=== PATIENT | female | born 1935 | race Caucasian/White ===

== ENCOUNTER 2017-01-25 21:19 | Emergency (ER) | payer MEDICARE ==
--- NOTE | 2017-01-25 22:07 | ED ---
General Adult HPI - General Chief complaint: Extremity Injury, Lower Stated complaint: Leg Pain Time Seen by Provider: 01/25/17 21:44 Source: patient, EMS, RN notes reviewed Mode of arrival: EMS Limitations: no limitations - History of Present Illness Initial comments: 81-year-old female presents to the emergency department with a chief complaint of left foot and ankle pain. Patient states that she was watering her garden the way back in her legs gave out and she twisted her left foot and ankle. Since she's had some pain and swelling noted. Patient states she normally uses a walker which she was not using during this incident. There is no lightheadedness or dizziness she did not fall she simply twisted her foot. Patient denies any other injuries at this time. Patient denies any other complaints. Patient denies any recent fever, chills, shortness of breath, chest pain, back pain, abdominal pain, nausea vomiting, numbness or tingling, dysuria or hematuria, constipation or diarrhea, headaches or visual changes, or any other current symptoms. - Related Data Home Medications Medication Instructions Recorded Confirmed Albuterol Inhaler [Ventolin 2 puff INHALATION Q4HR PRN 02/18/14 02/18/14 Inhaler] Amiodarone [Cordarone] 50 mg PO DAILY 02/18/14 02/21/14 Aspirin 81 mg PO DAILY 02/18/14 02/21/14 Cholecalciferol [Vitamin D3] 400 unit PO DAILY 02/18/14 02/21/14 Metoprolol Tartrate [Lopressor] 25 mg PO BID 02/18/14 02/21/14 Montelukast [Singulair] 10 mg PO DAILY 02/18/14 02/21/14 Venlafaxine HCl [Effexor] 75 mg PO DAILY 02/18/14 02/21/14 amLODIPine [Norvasc] 5 mg PO DAILY 02/18/14 02/21/14 traMADol HCl [Ultram] 50 mg PO Q6H PRN 02/18/14 02/21/14 Albuterol Inhaler [Ventolin 2 puff INHALATION Q4HR PRN 02/21/14 02/21/14 Inhaler] Allergies Allergy/AdvReac Type Severity Reaction Status Date / Time No Known Allergies Allergy Verified 02/18/14 14:34 Review of Systems ROS Statement: Those systems with pertinent positive or pertinent negative responses have been documented in the HPI. ROS Other: All systems not noted in ROS Statement are negative. Past Medical History Past Medical History: Asthma, Hypertension, Osteoarthritis (OA), Syncope Additional Past Medical History / Comment(s): fell 3 weeks after passing out, hit head, neede several stitches, see DR [facility], sepsis 2012 & hospitalized for over a month History of Any Multi-Drug Resistant Organisms: None Reported Past Surgical History: Bowel Resection, Hysterectomy, Joint Replacement, Tonsillectomy Additional Past Surgical History / Comment(s): cardioversion, both hips replaced , bowel resection due to perforation & then septic Past Anesthesia/Blood Transfusion Reactions: No Reported Reaction Past Psychological History: No Psychological Hx Reported Smoking Status: Former smoker Past Alcohol Use History: Occasional Past Drug Use History: None Reported General Exam - General Exam Comments Initial Comments: General: The patient is awake and alert, in no distress, and does not appear acutely ill. Neck: The neck is supple, there is no tenderness. Cardiovascular: There is a regular rate and rhythm. No murmur, rub or gallop is appreciated. Respiratory: Lungs are clear to auscultation, respirations are non-labored, breath sounds are equal. No wheezes, stridor, rales, or rhonchi. Musculoskeletal: Sensation intact. 2+ pulses throughout the left lower externa. Frontal motion of left knee and left ankle and left foot. Patient does have some swelling over the lateral malleolus as well as to the top of the left foot. 5 out of 5 muscle strength testing. No ecchymosis noted. Neurological: CN II-XII intact, There are no obvious motor or sensory deficits. Coordination appears grossly intact. Speech is normal. Skin: Skin is warm and dry and no rashes or lesions are noted. Psychiatric: Normal mood and affect. Limitations: no limitations Course Vital Signs 01/25/17 01/25/17 21:20 22:14 Temperature 97.5 F L Pulse Rate 52 L 72 Respiratory 20 17 Rate Blood Pressure 150/70 136/61 O2 Sat by Pulse 99 97 Oximetry Procedures - Orthopedic Splinting/Casting Injury #1 Side: left Lower Extremity Injury Location: ankle Lower Extremity Immobilizer: posterior splint (short leg) Medical Decision Making - Medical Decision Making 81-year-old female presents emergency Department chief complaint of left foot and ankle pain after a fall. At this time patient's x-rays reviewed that does show a fracture. At this time we did take patient is splint. We discussed care follow-up return parameters all questions. We discussed nonweightbearing on the ankle. We discussed follow-up and return parameters. We discussed all the patient's questions. She does have a walker at home. She will be discharged. - Radiology Data Radiology results: report reviewed, image reviewed Disposition Clinical Impression: Fracture of lateral malleolus of left ankle Disposition: HOME SELF-CARE Condition: Stable Instructions: Ankle Fracture (ED) Additional Instructions: Please use medication as discussed. Please follow up with family doctor if symptoms have not improved over the next two days. Please return to the emergency room if your symptoms increase or worsen or for any other concerns. Referrals: Myranda Jaquez MD [Primary Care Provider] - 1-2 days Jerry Diego DO [Doctor of Osteopathic Medicine] - 1-2 days Time of Disposition: 22:52
--- NOTE | 2017-01-25 22:18 | XR ---
EXAM: XR Left Foot Complete, 3 or More Views CLINICAL HISTORY: Reason: Pain TECHNIQUE: Frontal, lateral and oblique views of the left foot. COMPARISON: No relevant prior studies available. FINDINGS: Bones/joints: Small plantar calcaneal spur noted. No acute fracture. No dislocation. Soft tissues: Diffuse soft tissue swelling about the forefoot. No radiopaque foreign body. IMPRESSION: Diffuse soft tissue swelling about the forefoot. No fracture.
--- NOTE | 2017-01-25 22:29 | XR ---
EXAM: XR Left Ankle Complete, 3 or More Views CLINICAL HISTORY: Reason: Pain TECHNIQUE: Frontal, lateral and oblique views of the left ankle. COMPARISON: No relevant prior studies available. FINDINGS: Bones/joints: Nondisplaced oblique fracture of the lateral malleolus. No dislocation. Soft tissues: Lateral ankle soft tissue swelling noted. IMPRESSION: Nondisplaced oblique fracture of the lateral malleolus. Carballo type B.
[2017-01-26 00:26] VITALS: BP 165/77; PULSE 57; RESP 18; TEMP 98.8
== END 2017-01-26 00:35 | disposition home or self-care (01) ==
LOC: EC 21:19
DX: S82.65XA Nondisplaced fracture of lateral malleolus of left fibula, initial encounter for closed fracture (principal); J45.909 Unspecified asthma, uncomplicated; I10 Essential (primary) hypertension; M19.90 Unspecified osteoarthritis, unspecified site; Z96.643 Presence of artificial hip joint, bilateral; Z87.891 Personal history of nicotine dependence; Z79.82 Long term (current) use of aspirin; Z79.899 Other long term (current) drug therapy; X50.1XXA Overexertion from prolonged static or awkward postures, initial encounter; Y93.H2 Activity, gardening and landscaping; Y92.096 Garden or yard of other non-institutional residence as the place of occurrence of the external cause
CPT/HCPCS: 29515; 99283

== ENCOUNTER → 2017-02-06 | Outpatient (CLI) | payer MEDICARE ==
--- NOTE | 2017-02-06 14:07 | CT ---
EXAMINATION TYPE: CT foot LT wo con DATE OF EXAM: 02/06/2017 COMPARISON: Plain radiographs dated 01/25/2017. HISTORY: Left sided ankle and foot pain with bruising CT DLP: 244.7 mGycm Automated exposure control for dose reduction was used. TECHNIQUE: Helical acquisition through the left foot was obtained without intravenous contrast. The d kell was reformatted in axial, coronal and sagittal projections. 3-D volume rendered imaging was perfo rmed at the CT scanner. FINDINGS: There is a minimally displaced and mildly foreshortened fracture of the distal diametaphysi s of the left fibula. There is also a minimally displaced fracture of the base of the proximal first metatarsal. There are undisplaced fractures through the base of the second and third metatarsals. The re is a minimally displaced fracture through the base of the fourth metatarsal. No other definite fra ctures are seen. IMPRESSION: 1. MINIMALLY DISPLACED FRACTURE OF THE DISTAL LEFT FIBULA. 2. MULTIPLE METATARSAL FRACTURES. I DO NOT SEE EVIDENCE OF A LISFRANC FRACTURE.
== END ==
LOC: RADCTMAIN 13:14
PROVIDERS: ATTEND Orthopaedic Surgery
DX: M25.572 Pain in left ankle and joints of left foot (principal); M79.672 Pain in left foot; S82.832A Other fracture of upper and lower end of left fibula, initial encounter for closed fracture; S92.322A Displaced fracture of second metatarsal bone, left foot, initial encounter for closed fracture; S92.332A Displaced fracture of third metatarsal bone, left foot, initial encounter for closed fracture; S92.352A Displaced fracture of fifth metatarsal bone, left foot, initial encounter for closed fracture

== ENCOUNTER 2021-03-11 14:25 | Inpatient (IN) | payer MEDICARE ==
[2021-03-11] MEDS ORDERED: IPRATROPIUM 0.5 MG/2.5 ML NEBU INHALATION STA (14:37)
[2021-03-11] MEDS ORDERED: DEXAMETHASONE SOD PHOSPHATE 10 MG/ML 1 ML VIAL IV STA (14:37)
[2021-03-11] MEDS ORDERED: ALBUTEROL NEBULIZED 2.5 MG/3 ML INHALATION STA (14:37)
[2021-03-11] MEDS ORDERED: HEPARIN SODIUM 1,000 UN/ML (10ML VL) IV ONE (14:53)
[2021-03-11] MEDS ORDERED: HEPARIN SODIUM 1,000 UN/ML (10ML VL) IV PRN (14:53)
--- NOTE | 2021-03-11 14:53 | ED ---
General Adult HPI - General Chief complaint: Shortness of Breath Stated complaint: KIMBERLY Time Seen by Provider: 03/11/21 14:27 Source: patient, EMS Mode of arrival: EMS Limitations: no limitations - History of Present Illness Initial comments: Dictation was produced using [employer] dictation software. please excuse any grammatical, word or spelling errors. Chief Complaint: 85-year-old female with past medical history of asthma presents emergency department for shortness of breath 4 days. History of Present Illness: 85-year-old female she is brought in by EMS for shortness of breath. Patient reports that she's been short of breath for 4 days. Denies any chest pain or fevers. Patient reports having history of asthma. EMS placed patient on CPAP. They did notice multiple runs of atrial flutter versus atrial fibrillation. Patient denies having a configuration analyst. She denies fever. EMS reports that patient was piece 6% on room air at home. ROS limited secondary to patient's clinical status. She is having difficulty speaking due to dyspnea. PHYSICAL EXAM: General Impression: Alert and oriented x3, dyspneic HEENT: Normocephalic atraumatic, extra-ocular movements intact, pupils equal and reactive to light bilaterally, mucous membranes moist. Cardiovascular: Heart regular rate and rhythm Chest: 3 word sentences, diffuse lung wheezing Abdomen: abdomen soft, non-tender, non-distended, no organomegaly Musculoskeletal: Pulses present and equal in all extremities, no peripheral edema Motor: no focal deficits noted Neurological: CN II-XII grossly intact, no focal motor or sensory deficits noted Skin: Intact with no visualized rashes Psych: Normal affect and mood ED course:-year-old. Presents emergency department for chief complaint of dyspnea. Patient has wheezing on auscultation of the lungs per she is also has atrial flutter seen on monitor. Signs upon arrival shows heart rate of 110, respiratory 26, 96% on BiPAP with FiO2 of 50. EKG shows atrial flutter with variable block. Patient's medications and the electronic medical record reviewed. There is a prescription for amiodarone from 2013. Return evaluation obtained. Mild leukocytosis of 10.7. Rest of CBC within acceptable limits. Coag panel is unremarkable. Metabolic panel shows elevated BUN to creatinine ratio. Lactic acidosis 2.2. Troponin negative. Brain natruretic peptide unremarkable. Patient is RSV positive. Chest x-ray shows atelectasis. Patient reevaluated at bedside at 4:30 PM found to be stable medical condition. She is tolerating BiPAP. Her vitals are improved. Patient treated with Decadron, azithromycin. She started on heparin for atrial flutter. Patient seems to be rate controlled at this time. Patient given oral metoprolol. EKG interpretation: Ventricular rate 108, atrial flutter, QRS 78, QTC 418. No SD prolongation, no QTC prolongation, no ST or T-wave changes noted. No old EKG for comparison. - Related Data Home Medications Medication Instructions Recorded Confirmed Amiodarone [Cordarone] 50 mg PO DAILY 02/18/14 03/11/21 Montelukast [Singulair] 10 mg PO HS 02/18/14 03/11/21 Venlafaxine HCl [Effexor] 75 mg PO DAILY 02/18/14 03/11/21 amLODIPine [Norvasc] 5 mg PO DAILY 02/18/14 03/11/21 Albuterol Sulfate [Albuterol 2 puff PO RT-Q6H PRN 03/11/21 03/11/21 Sulfate Hfa] HYDROcodone/APAP 5-325MG [[place] 1 tab PO TID PRN 03/11/21 03/11/21 5-325] Metoprolol Tartrate [Lopressor] 100 mg PO DAILY 03/11/21 03/11/21 methylPREDNISolone Dose Pack See Taper PO DIRECTED 03/11/21 03/11/21 [Medrol Dose Pack] Allergies Allergy/AdvReac Type Severity Reaction Status Date / Time No Known Allergies Allergy Verified 03/11/21 16:20 Review of Systems ROS Statement: Those systems with pertinent positive or pertinent negative responses have been documented in the HPI. ROS Other: All systems not noted in ROS Statement are negative. Past Medical History Past Medical History: Asthma, Hypertension, Osteoarthritis (OA), Syncope Additional Past Medical History / Comment(s): fell 3 weeks after passing out, hit head, neede several stitches, see DR Terrazas [facility], sepsis 2011 & hospitalized for over a month History of Any Multi-Drug Resistant Organisms: None Reported Past Surgical History: Bowel Resection, Hysterectomy, Joint Replacement, Tonsillectomy Additional Past Surgical History / Comment(s): cardioversion, both hips replaced, bowel resection due to perforation & then septic Past Anesthesia/Blood Transfusion Reactions: No Reported Reaction Past Psychological History: No Psychological Hx Reported Smoking Status: Former smoker Past Alcohol Use History: Occasional Past Drug Use History: None Reported General Exam Limitations: no limitations Course Vital Signs 03/11/21 03/11/21 03/11/21 14:27 14:55 15:00 Temperature 98 F Pulse Rate 110 H 122 H 114 H Respiratory 26 H 24 26 H Rate Blood Pressure 142/99 142/88 O2 Sat by Pulse 96 98 Oximetry 03/11/21 15:28 Temperature Pulse Rate 127 H Respiratory 23 Rate Blood Pressure O2 Sat by Pulse Oximetry Medical Decision Making - Lab Data Result diagrams: 03/11/21 14:47 03/11/21 14:47 Lab Results 03/11/21 03/11/21 03/11/21 Range/Units 14:47 14:47 14:47 WBC 10.7 H (3.8-10.6) k/uL RBC 4.04 (3.80-5.40) m/uL Hgb 14.1 (11.4-16.0) gm/dL Hct 42.0 (34.0-46.0) % MCV 104.0 H (80.0-100.0) fL MCH 35.0 (25.0-35.0) pg MCHC 33.6 (31.0-37.0) g/dL RDW 13.9 (11.5-15.5) % Plt Count 378 (150-450) k/uL MPV 7.9 Neutrophils % 84 % Lymphocytes % 7 % Monocytes % 6 % Eosinophils % 0 % Basophils % 0 % Neutrophils # 9.0 H (1.3-7.7) k/uL Lymphocytes # 0.8 L (1.0-4.8) k/uL Monocytes # 0.6 (0-1.0) k/uL Eosinophils # 0.0 (0-0.7) k/uL Basophils # 0.0 (0-0.2) k/uL Macrocytosis Slight PT 10.5 (9.0-12.0) sec INR 1.0 (<1.2) APTT 21.2 L (22.0-30.0) sec Sodium 141 (137-145) mmol/L Potassium 4.1 (3.5-5.1) mmol/L Chloride 103 (98-107) mmol/L Carbon Dioxide 29 (22-30) mmol/L Anion Gap 9 mmol/L BUN 32 H (7-17) mg/dL Creatinine 1.02 (0.52-1.04) mg/dL Est GFR (CKD-EPI)AfAm 57 (>60 ml/min/1.73 sqM) Est GFR (CKD-EPI)NonAf 50 (>60 ml/min/1.73 sqM) Glucose 114 H (74-99) mg/dL Plasma Lactic Acid Eddie (0.7-2.0) mmol/L Calcium 9.8 (8.4-10.2) mg/dL Magnesium 1.8 (1.6-2.3) mg/dL Total Bilirubin 0.8 (0.2-1.3) mg/dL AST 42 H (14-36) U/L ALT 18 (4-34) U/L Alkaline Phosphatase 80 (38-126) U/L Troponin I (0.000-0.034) ng/mL NT-Pro-B Natriuret Pep pg/mL Total Protein 7.4 (6.3-8.2) g/dL Albumin 4.0 (3.5-5.0) g/dL Influenza Type A (PCR) (Not Detectd) Influenza Type B (PCR) (Not Detectd) RSV (PCR) (Not Detectd) SARS-CoV-2 (PCR) (Not Detectd) 03/11/21 03/11/21 03/11/21 Range/Units 14:47 14:47 15:07 WBC (3.8-10.6) k/uL RBC (3.80-5.40) m/uL Hgb (11.4-16.0) gm/dL Hct (34.0-46.0) % MCV (80.0-100.0) fL MCH (25.0-35.0) pg MCHC (31.0-37.0) g/dL RDW (11.5-15.5) % Plt Count (150-450) k/uL MPV Neutrophils % % Lymphocytes % % Monocytes % % Eosinophils % % Basophils % % Neutrophils # (1.3-7.7) k/uL Lymphocytes # (1.0-4.8) k/uL Monocytes # (0-1.0) k/uL Eosinophils # (0-0.7) k/uL Basophils # (0-0.2) k/uL Macrocytosis PT (9.0-12.0) sec INR (<1.2) APTT (22.0-30.0) sec Sodium (137-145) mmol/L Potassium (3.5-5.1) mmol/L Chloride (98-107) mmol/L Carbon Dioxide (22-30) mmol/L Anion Gap mmol/L BUN (7-17) mg/dL Creatinine (0.52-1.04) mg/dL Est GFR (CKD-EPI)AfAm (>60 ml/min/1.73 sqM) Est GFR (CKD-EPI)NonAf (>60 ml/min/1.73 sqM) Glucose (74-99) mg/dL Plasma Lactic Acid Eddie 2.2 H* (0.7-2.0) mmol/L Calcium (8.4-10.2) mg/dL Magnesium (1.6-2.3) mg/dL Total Bilirubin (0.2-1.3) mg/dL AST (14-36) U/L ALT (4-34) U/L Alkaline Phosphatase (38-126) U/L Troponin I <0.012 (0.000-0.034) ng/mL NT-Pro-B Natriuret Pep 1490 pg/mL Total Protein (6.3-8.2) g/dL Albumin (3.5-5.0) g/dL Influenza Type A (PCR) (Not Detectd) Influenza Type B (PCR) (Not Detectd) RSV (PCR) (Not Detectd) SARS-CoV-2 (PCR) (Not Detectd) 03/11/21 Range/Units 15:10 WBC (3.8-10.6) k/uL RBC (3.80-5.40) m/uL Hgb (11.4-16.0) gm/dL Hct (34.0-46.0) % MCV (80.0-100.0) fL MCH (25.0-35.0) pg MCHC (31.0-37.0) g/dL RDW (11.5-15.5) % Plt Count (150-450) k/uL MPV Neutrophils % % Lymphocytes % % Monocytes % % Eosinophils % % Basophils % % Neutrophils # (1.3-7.7) k/uL Lymphocytes # (1.0-4.8) k/uL Monocytes # (0-1.0) k/uL Eosinophils # (0-0.7) k/uL Basophils # (0-0.2) k/uL Macrocytosis PT (9.0-12.0) sec INR (<1.2) APTT (22.0-30.0) sec Sodium (137-145) mmol/L Potassium (3.5-5.1) mmol/L Chloride (98-107) mmol/L Carbon Dioxide (22-30) mmol/L Anion Gap mmol/L BUN (7-17) mg/dL Creatinine (0.52-1.04) mg/dL Est GFR (CKD-EPI)AfAm (>60 ml/min/1.73 sqM) Est GFR (CKD-EPI)NonAf (>60 ml/min/1.73 sqM) Glucose (74-99) mg/dL Plasma Lactic Acid Eddie (0.7-2.0) mmol/L Calcium (8.4-10.2) mg/dL Magnesium (1.6-2.3) mg/dL Total Bilirubin (0.2-1.3) mg/dL AST (14-36) U/L ALT (4-34) U/L Alkaline Phosphatase (38-126) U/L Troponin I (0.000-0.034) ng/mL NT-Pro-B Natriuret Pep pg/mL Total Protein (6.3-8.2) g/dL Albumin (3.5-5.0) g/dL Influenza Type A (PCR) Not Detected (Not Detectd) Influenza Type B (PCR) Not Detected (Not Detectd) RSV (PCR) Detected A (Not Detectd) SARS-CoV-2 (PCR) Not Detected (Not Detectd) Critical Care Time Critical Care Time: Yes Total Critical Care Time: 33 Disposition Clinical Impression: Asthma exacerbation, RSV infection, Atrial flutter Disposition: ADMITTED IP TO THIS [facility] Condition: Fair Referrals: Myranda Jaquez MD [Primary Care Provider] - 1-2 days
[2021-03-11 15:10] LABS: Basophils % (A) 0 %; Eosinophils % (A) 0 %; HGB 14.1 gm/dL (11.4-16.0); Lymphocytes # (A) 0.8 k/uL (1.0-4.8); Lymphocytes % (A) 7 %; MCHC 33.6 g/dL (31.0-37.0); Macrocytosis Slight; Mean Platelet Volume 7.9; Monocytes # (A) 0.6 k/uL (0-1.0); Monocytes % (A) 6 %; Neutrophils % (A) 84 %; Platelet Count 378 k/uL (150-450); RBC 4.04 m/uL (3.80-5.40); RDW 13.9 % (11.5-15.5); WBC 10.7 k/uL (3.8-10.6)
[2021-03-11 15:25] LABS: Calcium 9.8 mg/dL (8.4-10.2); Magnesium 1.8 mg/dL (1.6-2.3); Potassium 4.1 mmol/L (3.5-5.1); Total Bilirubin 0.8 mg/dL (0.2-1.3); Total Protein 7.4 g/dL (6.3-8.2)
[2021-03-11] MEDS: HEPARIN SOD,PORK IN 0.45% NACL 25,000 UNIT in 0.45% NACL 1 250ML.BAG IV SCH (15:28)
--- NOTE | 2021-03-11 15:31 | XR ---
EXAMINATION TYPE: XR chest 1V portable DATE OF EXAM: 03/11/2021 COMPARISON: 03/26/2012 HISTORY: Difficulty breathing TECHNIQUE: Single view FINDINGS: There is no heart failure nor confluent pneumonic infiltrate. Costophrenic angles are clear . There is some linear density in the lingula left upper lobe. Heart size is normal. IMPRESSION: Minimal lingular subsegmental atelectasis. There is clearing of the pleural fluid and pul monary congestion compared to old exam.
[2021-03-11 15:42] LABS: Prothrombin Time 10.5 sec (9.0-12.0)
[2021-03-11 16:18] LABS: Partial Thromboplastin Time 21.2 sec (22.0-30.0)
[2021-03-11] MEDS ORDERED: METOPROLOL TARTRATE 50 MG TAB PO STA (16:33)
[2021-03-11] MEDS: AZITHROMYCIN 500 MG TAB PO SCH (17:02)
[2021-03-11] MEDS ORDERED: LORazepam 2 MG/ML INJ IV STA (17:14)
--- NOTE | 2021-03-11 18:39 | P.HPIM ---
History of Present Illness H&P Date: 03/11/21 Chief Complaint: Shortness of breath 85-year-old female patient, with history of asthma, hypertension, osteoarthritis and syncope, presents to ED with complaint of shortness of breath which has been gradually worsening for the past 4 days; patient denies any chest pain or fe vers; while in ED patient had several rounds of atrial flutter/fibrillation Lab work in ED reveals WBC of 10.7, hemoglobin of 14.1, sodium 141, potassium 4.1, BUN of 32 with creatinine of 1.02, lactic acid level of 2.2 and magnesium of 1.8 Patient was placed on BiPAP which improved her respiratory status; she received Decadron and azithromycin and has been placed on IV heparin and is being admitte d for cardiology to evaluate Review of Systems REVIEW OF SYSTEMS: CONSTITUTIONAL: No fever, no malaise, no fatigue. HEENT: No recent visual problems or hearing problems. Denied any sore throat. CARDIOVASCULAR: No chest pain, orthopnea, PND, no palpitations, no syncope. PULMONARY: No shortness of breath, no cough, no hemoptysis. GASTROINTESTINAL: No diarrhea, no nausea, no vomiting, no abdominal pain. NEUROLOGICAL: No headaches, no weakness, no numbness. HEMATOLOGICAL: Denies any bleeding or petechiae. GENITOURINARY: Denies any burning micturition, frequency, or urgency. MUSCULOSKELETAL/RHEUMATOLOGICAL: Denies any joint pain, swelling, or any muscle pain. ENDOCRINE: Denies any polyuria or polydipsia. The rest of the 14-point review of systems is negative. Past Medical History Past Medical History: Asthma, Hypertension, Osteoarthritis (OA), Syncope Additional Past Medical History / Comment(s): fell 3 weeks after passing out, hit head, neede several stitches, see DR Terrazas [facility], sepsis 2011 & hospitalized for over a month History of Any Multi-Drug Resistant Organisms: None Reported Past Surgical History: Bowel Resection, Hysterectomy, Joint Replacement, Tonsillectomy Additional Past Surgical History / Comment(s): cardioversion, both hips replaced, bowel resection due to perforation & then septic Past Anesthesia/Blood Transfusion Reactions: No Reported Reaction Past Psychological History: No Psychological Hx Reported Smoking Status: Former smoker Past Alcohol Use History: Occasional Past Drug Use History: None Reported Medications and Allergies Home Medications Medication Instructions Recorded Confirmed Type Amiodarone [Cordarone] 50 mg PO DAILY 02/18/14 03/11/21 History Montelukast [Singulair] 10 mg PO HS 02/18/14 03/11/21 History Venlafaxine HCl [Effexor] 75 mg PO DAILY 02/18/14 03/11/21 History amLODIPine [Norvasc] 5 mg PO DAILY 02/18/14 03/11/21 History Albuterol Sulfate [Albuterol 2 puff PO RT-Q6H PRN 03/11/21 03/11/21 History Sulfate Hfa] HYDROcodone/APAP 5-325MG [[place] 1 tab PO TID PRN 03/11/21 03/11/21 History 5-325] Metoprolol Tartrate [Lopressor] 100 mg PO DAILY 03/11/21 03/11/21 History methylPREDNISolone Dose Pack See Taper PO DIRECTED 03/11/21 03/11/21 History [Medrol Dose Pack] Allergies Allergy/AdvReac Type Severity Reaction Status Date / Time No Known Allergies Allergy Verified 03/11/21 16:20 Physical Exam Vitals: Vital Signs Temp Pulse Resp BP Pulse Ox 03/11/21 17:00 98.9 F 124 H 26 H 138/72 97 03/11/21 16:00 112 H 25 H 141/98 97 03/11/21 15:28 127 H 23 03/11/21 15:00 114 H 26 H 142/88 98 03/11/21 14:55 122 H 24 03/11/21 14:27 98 F 110 H 26 H 142/99 96 Intake and Output 03/11/21 03/11/21 03/11/21 06:59 14:59 22:59 Other: Weight 77.111 kg - Constitutional General appearance: Present: average body habitus, cooperative, no acute distr ess - EENT Eyes: Present: anicteric sclerae, EOMI, PERRLA, normal appearance ENT: Present: hearing grossly normal, normal oropharynx Ears: bilateral: normal - Neck Neck: Present: normal ROM. Absent: lymphadenopathy, rigidity, thyromegaly Carotids: negative: bruit present Thyroid: bilateral: normal size, negative: enlarged, nodule - Respiratory Respiratory: bilateral: CTA, negative: rales, rhonchi, wheezing - Cardiovascular Rhythm: regular Heart sounds: normal: S1, S2 Abnormal Heart Sounds: Absent: systolic murmur, diastolic murmur - Gastrointestinal General gastrointestinal: Present: normal bowel sounds, soft. Absent: distended, organomegaly, tenderness - Genitourinary Genitourinary Comment(s): deferred - Integumentary Integumentary: Present: normal turgor. Absent: jaundiced, rash, ulcer - Neurologic Neurologic: Present: CNII-XII intact. Absent: focal deficits - Musculoskeletal Musculoskeletal: Present: gait normal, strength equal bilaterally - Psychiatric Psychiatric: Present: A&O x's 3, appropriate affect, intact judgment & insight Results CBC & Chem 7: 03/11/21 14:47 03/11/21 14:47 Labs: Abnormal Lab Results - Last 24 Hours (Table) 03/11/21 03/11/21 03/11/21 Range/Units 14:47 14:47 14:47 WBC 10.7 H (3.8-10.6) k/uL MCV 104.0 H (80.0-100.0) fL Neutrophils # 9.0 H (1.3-7.7) k/uL Lymphocytes # 0.8 L (1.0-4.8) k/uL APTT 21.2 L (22.0-30.0) sec BUN 32 H (7-17) mg/dL Glucose 114 H (74-99) mg/dL Plasma Lactic Acid Eddie (0.7-2.0) mmol/L AST 42 H (14-36) U/L RSV (PCR) (Not Detectd) 03/11/21 03/11/21 Range/Units 14:47 15:10 WBC (3.8-10.6) k/uL MCV (80.0-100.0) fL Neutrophils # (1.3-7.7) k/uL Lymphocytes # (1.0-4.8) k/uL APTT (22.0-30.0) sec BUN (7-17) mg/dL Glucose (74-99) mg/dL Plasma Lactic Acid Eddie 2.2 H* (0.7-2.0) mmol/L AST (14-36) U/L RSV (PCR) Detected A (Not Detectd) Assessment and Plan Assessment: 1. Atrial flutter/fibrillation; patient has been placed on IV heparin protocol; we will order thyroid profile; plan to keep magnesium levels above 2.0 and potassium above 4.0; cardiology to evaluate patient 2. Acute exacerbation asthma/COPD; continue with bronchodilator nebulizer treatment; IV steroids with plans to taper as able; azithromycin 500 mg daily 3. Mild exacerbation CHF; start patient on low-dose diuretic therapy with Lasix 20 mg IV every 12 hours for 24 hours; monitor strict KIARA's and daily weights; low-salt and fluid restricted diet 4. Acute viral syndrome; RSV PCR positive; influenza A and B is negative; COVID-19 is negative; we will continue with symptomatic treatment with supplemental oxygen and IV steroids and bronchodilators 5. Hypertension; continue with home dose of amlodipine 5 mg daily, metoprolol 100 mg daily 6. Depression/anxiety; continue with Effexor 75 mg daily DVT prophylaxis; SCDs/IV heparin CODE STATUS; full code
[2021-03-11] MEDS ORDERED: MAGNESIUM SULFATE-D5W PMX 1 GM in DEXTROSE/WATER 1 100ML.BAG IVPB ONE (18:40)
[2021-03-11] MEDS ORDERED: HYDROcodone/APAP 5-325MG 1 EACH TAB PO PRN (18:40)
[2021-03-11] MEDS: IPRATROPIUM-ALBUTEROL 3 ML NEB INHALATION PRN (19:24)
[2021-03-11] MEDS: methylPREDNISolone SOD SUCCI 40 MG/ML 1 ML VIAL IV SCH ×2 (19:38→23:33)
[2021-03-11] MEDS: MONTELUKAST 10 MG TAB PO SCH (21:18)
[2021-03-12] MEDS: IPRATROPIUM-ALBUTEROL 3 ML NEB INHALATION PRN ×6 (00:23→20:54)
[2021-03-12] MEDS: methylPREDNISolone SOD SUCCI 40 MG/ML 1 ML VIAL IV SCH ×4 (06:03→23:09)
[2021-03-12 06:43] LABS: Calcium 9.7 mg/dL (8.4-10.2); Magnesium 2.4 mg/dL (1.6-2.3); Potassium 5.3 mmol/L (3.5-5.1)
[2021-03-12 07:04] LABS: Basophils % (A) 0 %; Eosinophils % (A) 0 %; HGB 13.8 gm/dL (11.4-16.0); Lymphocytes # (A) 0.4 k/uL (1.0-4.8); Lymphocytes % (A) 4 %; MCH 34.6 pg (25.0-35.0); MCHC 32.8 g/dL (31.0-37.0); MCV 105.4 fL (80.0-100.0); Macrocytosis Moderate; Mean Platelet Volume 8.3; Monocytes # (A) 0.2 k/uL (0-1.0); Monocytes % (A) 3 %; Neutrophils # (A) 8.2 k/uL (1.3-7.7); Neutrophils % (A) 93 %; Platelet Count 358 k/uL (150-450); RBC 3.98 m/uL (3.80-5.40); RDW 13.5 % (11.5-15.5); WBC 8.9 k/uL (3.8-10.6)
[2021-03-12 08:06] LABS: T4, Free (Free Thyroxine) 2.15 ng/dL (0.78-2.19)
[2021-03-12] MEDS: AMIODARONE 100 MG TAB PO SCH (08:13)
[2021-03-12] MEDS: VENLAFAXINE HCL 75 MG TAB PO SCH (08:13)
[2021-03-12] MEDS: AZITHROMYCIN 500 MG TAB PO SCH (08:13)
[2021-03-12] MEDS: amLODIPine 5 MG TAB PO SCH (08:13)
[2021-03-12] MEDS: METOPROLOL TARTRATE 50 MG TAB PO SCH (08:13)
[2021-03-12 11:44] LABS: Glucose,Whole Blood 128 mg/dL (75-99)
--- NOTE | 2021-03-12 12:24 | P.CRDCN ---
History of Present Illness History of present illness: HISTORY OF PRESENTING ILLNESS This is a pleasant 85-year-old female past medical history significant for chronic persistent atrial fibrillation with prior cardioversion (not on anticoagulation due to falls), hypertension, asthma, tobacco use. She follows in the office with Dr. Harrison, last seen in June 2019. We have been asked to see in consultation for atrial flutter. Patient presented to the emergency department with complaints of worsening shortness of breath for 4 days. She progressively felt worse and EMS was called. Patient was placed on CPAP by EMS. Patient was also found to have multiple runs of atrial flutter/fibrillation. Patient was found to be RSV Positive. Patient denies any chest pain, leg numbness, dizziness, syncope, palpitations. She is lying in bed comfortably. No worsening complaints. She continues to be short of breath. DIAGNOSTICS EKG reveals atrial flutter HR 108 Telemetry tracings indicate atrial flutter HR 75-100 Chest xray minimal subsegmental atelectasis. Echocardiogram 07/2018 revealed EF of 60%, mild tricuspid regurgitation, moderate LVH, mild mitral regurgitation Laboratory reviewed, WBC 0.9, hemoglobin 13, platelets 358, sodium 140, po tassium 5.3, BUN 39, serum creatinine 1.09, magnesium 2.4, TSH low, free T4 within normal limits, troponin negative 1, proBNP 1490, RSV PCR positive Current cardiac medications include Lopressor 100 mg daily, atorvastatin 40 mg daily, amiodarone 50 mg daily REVIEW OF SYSTEMS At the time of my exam: CONSTITUTIONAL: Denies fever or chills. CARDIOVASCULAR: +shortness of breath Denies chest pain, orthopnea, PND or palpitations. RESPIRATORY: Denies cough. GASTROINTESTINAL: Denies abdominal pain, diarrhea, constipation, nausea or vomiting. MUSCULOSKELETAL: Denies myalgias. NEUROLOGIC: Denies numbness, tingling, headacbe or weakness. ENDOCRINE: Denies fatigue, weight change, polydipsia or polyurina. GENITOURINARY: Denies burning, hematuria or urgency with micturation. HEMATOLOGIC: Denies history of anemia or bleeding. PHYSICAL EXAMINATION Blood pressure 167/93, heart rate 85, afebrile, maintaining oxygen saturations on nasal cannula CONSTITUTIONAL: Short of breath HEENT: Head is normocephalic. Pupils are equal, round. Sclerae anicteric. Mucous membranes of the mouth are moist. No JVD. No carotid bruit. CHEST EXAMINATION: Lungs are diminished bilaterally to auscultation. No chest wall tenderness is noted on palpation or with deep breathing. HEART EXAMINATION: Irregular rate and rhythm. S1, S2 heard. No murmurs, gallops or rub. ABDOMEN: Soft, nontender. Positive bowel sounds. EXTREMITIES: 2+ peripheral pulses, no lower extremity edema and no calf tenderness. NEUROLOGIC EXAMINATION: Patient is awake, alert and oriented x3. 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 Nurse Practitioner note has been reviewed, I agree with a documented findings and plan of care. Patient was seen and examined. Past Medical History Past Medical History: Asthma, Hypertension, Osteoarthritis (OA), Syncope Additional Past Medical History / Comment(s): fell 3 weeks after passing out, hit head, neede several stitches, see DR Terrazas [facility], sepsis 2011 & hospitalized for over a month History of Any Multi-Drug Resistant Organisms: None Reported Past Surgical History: Bowel Resection, Hysterectomy, Joint Replacement, Tonsillectomy Additional Past Surgical History / Comment(s): cardioversion, both hips replaced, bowel resection due to perforation & then septic Past Anesthesia/Blood Transfusion Reactions: Blood Transfusion Reaction Additional Past Anesthesia/Blood Transfusion Reaction / Comment(s): Patient states she has had two transfusions and had a bad reaction after one of them. Past Psychological History: No Psychological Hx Reported Smoking Status: Former smoker Past Alcohol Use History: Occasional Past Drug Use History: None Reported Medications and Allergies Home Medications Medication Instructions Recorded Confirmed Type Amiodarone [Cordarone] 50 mg PO DAILY 02/18/14 03/11/21 History Montelukast [Singulair] 10 mg PO HS 02/18/14 03/11/21 History Venlafaxine HCl [Effexor] 75 mg PO DAILY 02/18/14 03/11/21 History amLODIPine [Norvasc] 5 mg PO DAILY 02/18/14 03/11/21 History Albuterol Sulfate [Albuterol 2 puff PO RT-Q6H PRN 03/11/21 03/11/21 History Sulfate Hfa] HYDROcodone/APAP 5-325MG [[place] 1 tab PO TID PRN 03/11/21 03/11/21 History 5-325] Metoprolol Tartrate [Lopressor] 100 mg PO DAILY 03/11/21 03/11/21 History methylPREDNISolone Dose Pack See Taper PO DIRECTED 03/11/21 03/11/21 History [Medrol Dose Pack] Allergies Allergy/AdvReac Type Severity Reaction Status Date / Time No Known Allergies Allergy Verified 03/11/21 16:20 Physical Exam Vitals: Vital Signs Temp Pulse Pulse Resp BP BP Pulse Ox 03/12/21 11:59 88 03/12/21 11:53 84 03/12/21 09:08 92 03/12/21 08:58 88 03/12/21 08:10 97.3 F L 85 26 H 167/93 94 L 03/12/21 04:23 90 03/12/21 04:08 90 03/12/21 04:00 97.7 F 85 24 127/79 100 03/12/21 00:36 92 03/12/21 00:26 95 03/12/21 00:00 97.7 F 82 24 139/76 98 03/11/21 23:42 97.7 F 82 24 139/76 98 03/11/21 19:56 98.3 F 91 23 130/87 100 03/11/21 19:37 100 03/11/21 19:24 98 03/11/21 17:00 98.9 F 124 H 26 H 138/72 97 03/11/21 16:00 112 H 25 H 141/98 97 03/11/21 15:28 127 H 23 03/11/21 15:00 114 H 26 H 142/88 98 03/11/21 14:55 122 H 24 03/11/21 14:27 98 F 110 H 26 H 142/99 96 Intake and Output 03/11/21 03/12/21 03/12/21 22:59 06:59 14:59 Intake Total 0 159.427 0 Output Total 400 Balance 0 159.427 -400 Intake: Intake, IV Titration 159.427 Amount Heparin Sod,Pork in 0.45% 159.427 NaCl 25,000 unit In 0.45 % NaCl 1 250ml.bag @ 12 UNITS/KG/HR 9.253 mls/hr IV .Q24H [facility] Rx#: [id number] Oral 0 0 Output: Urine 400 Other: Voiding Method Bedpan Bedpan Bedpan # Voids 1 1 # Bowel Movements 1 2 Weight 77.5 kg Results 03/12/21 05:30 03/12/21 05:30 Cardiac Enzymes 03/11/21 03/11/21 Range/Units 14:47 15:07 AST 42 H (14-36) U/L Troponin I <0.012 (0.000-0.034) ng/mL Coagulation 03/11/21 03/11/21 03/12/21 Range/Units 14:47 22:18 05:30 PT 10.5 (9.0-12.0) sec APTT 21.2 L 30.9 H 52.9 H (22.0-30.0) sec CBC 03/11/21 03/12/21 Range/Units 14:47 05:30 WBC 10.7 H 8.9 (3.8-10.6) k/uL RBC 4.04 3.98 (3.80-5.40) m/uL Hgb 14.1 13.8 (11.4-16.0) gm/dL Hct 42.0 42.0 (34.0-46.0) % Plt Count 378 358 (150-450) k/uL Comprehensive Metabolic Panel 03/11/21 03/12/21 Range/Units 14:47 05:30 Sodium 141 140 (137-145) mmol/L Potassium 4.1 5.3 H (3.5-5.1) mmol/L Chloride 103 104 (98-107) mmol/L Carbon Dioxide 29 27 (22-30) mmol/L BUN 32 H 39 H (7-17) mg/dL Creatinine 1.02 1.09 H (0.52-1.04) mg/dL Glucose 114 H 137 H (74-99) mg/dL Calcium 9.8 9.7 (8.4-10.2) mg/dL AST 42 H (14-36) U/L ALT 18 (4-34) U/L Alkaline Phosphatase 80 (38-126) U/L Total Protein 7.4 (6.3-8.2) g/dL Albumin 4.0 (3.5-5.0) g/dL Current Medications Generic Name Dose Route Start Last Admin Trade Name Freq PRN Reason Stop Dose Admin Hydrocodone Bitart/Acetaminophen 1 each 03/11/21 18:40 Hydrocodone/Apap 5-325mg 1 Each Tab PO TID PRN Pain Albuterol/Ipratropium 3 ml 03/11/21 16:27 03/12/21 11:51 Ipratropium-Albuterol 3 Ml Neb INHALATION 3 ml RT-Q4H PRN Administration Shortness Of Breath Or Wheezing Amiodarone HCl 50 mg 03/12/21 09:00 03/12/21 08:13 Amiodarone 100 Mg Tab PO 50 mg DAILY EMMA Administration Amlodipine Besylate 5 mg 03/12/21 09:00 03/12/21 08:13 Amlodipine 5 Mg Tab PO 5 mg DAILY EMMA Administration Azithromycin 500 mg 03/11/21 16:30 03/12/21 08:13 Azithromycin 500 Mg Tab PO 500 mg DAILY EMMA Administration Heparin Sodium (Porcine) 0 unit 03/11/21 14:53 Heparin Sodium 1,000 Un/Ml (10ml Vl) IV PER PROTOCOL PRN Low PTT Protocol Heparin Sodium/Sodium Chloride 250 mls @ 9.253 mls/hr 03/11/21 15:00 03/12/21 06:52 25,000 unit/ Sodium Chloride IV 15 units/kg/hr .Q24H [facility] 11.567 mls/hr Titration Protocol 12 UNITS/KG/HR Methylprednisolone Sodium Succinate 40 mg 03/11/21 18:45 03/12/21 06:03 Methylprednisolone Sod Succi 40 Mg/Ml 1 Ml Vial IV 40 mg Q6HR EMMA Administration Metoprolol Tartrate 100 mg 03/12/21 09:00 03/12/21 08:13 Metoprolol Tartrate 50 Mg Tab PO 100 mg DAILY EMMA Administration Metoprolol Tartrate 25 mg 03/12/21 17:00 Metoprolol Tartrate 25 Mg Tab PO DAILY@1700 EMMA Montelukast Sodium 10 mg 03/11/21 21:00 03/11/21 21:18 Montelukast 10 Mg Tab PO 10 mg HS EMMA Administration Venlafaxine HCl 75 mg 03/12/21 09:00 03/12/21 08:13 Venlafaxine Hcl 75 Mg Tab PO 75 mg DAILY EMMA Administration Intake and Output 03/11/21 03/12/21 03/12/21 22:59 06:59 14:59 Intake Total 0 159.427 0 Output Total 400 Balance 0 159.427 -400 Intake: Intake, IV Titration 159.427 Amount Heparin Sod,Pork in 0.45% 159.427 NaCl 25,000 unit In 0.45 % NaCl 1 250ml.bag @ 12 UNITS/KG/HR 9.253 mls/hr IV .Q24H [facility] Rx#: [id number] Oral 0 0 Output: Urine 400 Other: Voiding Method Bedpan Bedpan Bedpan # Voids 1 1 # Bowel Movements 1 2 Weight 77.5 kg 03/12/21 05:30 03/12/21 05:30
--- NOTE | 2021-03-12 12:31 | P.PN ---
Subjective 85-year-old female patient, with history of asthma, hypertension, osteoarthritis and syncope, presents to ED with complaint of shortness of breath which has been gradually worsening for the past 4 days; patient denies any chest pain or fevers; while in ED patient had several rounds of atrial flutter/fibrillation Lab work in ED reveals WBC of 10.7, hemoglobin of 14.1, sodium 141, potassium 4.1, BUN of 32 with creatinine of 1.02, lactic acid level of 2.2 and magnesium of 1.8 Patient was placed on BiPAP which improved her respiratory status; she received Decadron and azithromycin and has been placed on IV heparin and is being admitted for cardiology to evaluate 03-12-21 This is a pleasant 85 years old female who presents with dyspnea thought secondary to acute asthma exacerbation, she was significantly hypoxic and she was placed on BiPAP. Still on BiPAP with a setting of 12/5 with FiO2 of 50%. Patient states she feels a little better. She denies chest pain. Vitals are stable. Tachycardia is improved while she is on metoprolol 100 mg, 25 mg at bedtime is added by cardiology team. Leukocytosis is back to normal at 8.9 and her creatinine is stable at 1.09, also patient with evidence of chronic kidney disease stage III. Currently she kept on Zithromax orally, heparin drip for A. fib but hearing care practitioner recommended to stop it upon discharge for her recurrent falls. Also she is on Solu-Medrol 40 mg Objective - Vital Signs Vital signs: Vital Signs Temp 97.3 F L 03/12/21 08:10 Pulse 88 03/12/21 11:59 Resp 26 H 03/12/21 08:10 BP 167/93 03/12/21 08:10 Pulse Ox 94 L 03/12/21 08:10 Intake & Output 03/11/21 03/12/21 03/12/21 18:59 06:59 18:59 Intake Total 0 159.427 0 Output Total 400 Balance 0 159.427 -400 Weight 77.111 kg 77.5 kg Intake: Intake, IV Titration 159.427 Amount Heparin Sod,Pork in 0.45% 159.427 NaCl 25,000 unit In 0.45 % NaCl 1 250ml.bag @ 12 UNITS/KG/HR 9.253 mls/hr IV .Q24H [facility] Rx#: [id number] Oral 0 0 Output: Urine 400 Other: Voiding Method Bedpan Bedpan # Voids 1 1 # Bowel Movements 1 2 - Exam GENERAL: The patient is alert and oriented x3, not in any acute distress. Well developed, well nourished. HEENT: Pupils are round and equally reacting to light. EOMI. No scleral icterus. No conjunctival pallor. Normocephalic, atraumatic. No pharyngeal erythema. No thyromegaly. CARDIOVASCULAR: S1 and S2 present. No murmurs, rubs, or gallops. -PULMONARY: Chest is clear to auscultation, bilateral scattered wheezing wheezing. No crackles. ABDOMEN: Soft, nontender, nondistended, normoactive bowel sounds. No palpable organomegaly. MUSCULOSKELETAL: No joint swelling or deformity. EXTREMITIES: No cyanosis, clubbing, or pedal edema. NEUROLOGICAL: Gross neurological examination did not reveal any focal deficits. SKIN: No rashes. no petechiae. - Labs CBC & Chem 7: 03/12/21 05:30 03/12/21 05:30 Labs: Abnormal Lab Results - Last 24 Hours (Table) 03/11/21 03/11/21 03/11/21 Range/Units 14:47 14:47 14:47 WBC 10.7 H (3.8-10.6) k/uL MCV 104.0 H (80.0-100.0) fL Neutrophils # 9.0 H (1.3-7.7) k/uL Lymphocytes # 0.8 L (1.0-4.8) k/uL APTT 21.2 L (22.0-30.0) sec Potassium (3.5-5.1) mmol/L BUN 32 H (7-17) mg/dL Creatinine (0.52-1.04) mg/dL Glucose 114 H (74-99) mg/dL POC Glucose (mg/dL) (75-99) mg/dL Plasma Lactic Acid Eddie (0.7-2.0) mmol/L Magnesium (1.6-2.3) mg/dL AST 42 H (14-36) U/L TSH (0.465-4.680) mIU/L RSV (PCR) (Not Detectd) 03/11/21 03/11/21 03/11/21 Range/Units 14:47 15:10 22:18 WBC (3.8-10.6) k/uL MCV (80.0-100.0) fL Neutrophils # (1.3-7.7) k/uL Lymphocytes # (1.0-4.8) k/uL APTT 30.9 H (22.0-30.0) sec Potassium (3.5-5.1) mmol/L BUN (7-17) mg/dL Creatinine (0.52-1.04) mg/dL Glucose (74-99) mg/dL POC Glucose (mg/dL) (75-99) mg/dL Plasma Lactic Acid Eddie 2.2 H* (0.7-2.0) mmol/L Magnesium (1.6-2.3) mg/dL AST (14-36) U/L TSH (0.465-4.680) mIU/L RSV (PCR) Detected A (Not Detectd) 03/12/21 03/12/21 03/12/21 Range/Units 05:30 05:30 05:30 WBC (3.8-10.6) k/uL MCV 105.4 H (80.0-100.0) fL Neutrophils # 8.2 H (1.3-7.7) k/uL Lymphocytes # 0.4 L (1.0-4.8) k/uL APTT 52.9 H (22.0-30.0) sec Potassium 5.3 H (3.5-5.1) mmol/L BUN 39 H (7-17) mg/dL Creatinine 1.09 H (0.52-1.04) mg/dL Glucose 137 H (74-99) mg/dL POC Glucose (mg/dL) (75-99) mg/dL Plasma Lactic Acid Eddie (0.7-2.0) mmol/L Magnesium 2.4 H (1.6-2.3) mg/dL AST (14-36) U/L TSH 0.070 L (0.465-4.680) mIU/L RSV (PCR) (Not Detectd) 03/12/21 Range/Units 11:41 WBC (3.8-10.6) k/uL MCV (80.0-100.0) fL Neutrophils # (1.3-7.7) k/uL Lymphocytes # (1.0-4.8) k/uL APTT (22.0-30.0) sec Potassium (3.5-5.1) mmol/L BUN (7-17) mg/dL Creatinine (0.52-1.04) mg/dL Glucose (74-99) mg/dL POC Glucose (mg/dL) 128 H (75-99) mg/dL Plasma Lactic Acid Eddie (0.7-2.0) mmol/L Magnesium (1.6-2.3) mg/dL AST (14-36) U/L TSH (0.465-4.680) mIU/L RSV (PCR) (Not Detectd) Assessment and Plan Assessment: 1. Atrial flutter/fibrillation; patient has been placed on IV heparin protocol; we will order thyroid profile; plan to keep magnesium levels above 2.0 and potassium above 4.0; cardiology to evaluate patient 2. Acute exacerbation asthma/COPD; continue with bronchodilator nebulizer treatment; IV steroids with plans to taper as able; azithromycin 500 mg daily. Pulmonary consult 3. Acute hypoxic respiratory failure, on BiPAP 4. Acute viral syndrome; RSV PCR positive; influenza A and B is negative; COVID-19 is negative; we will continue with symptomatic treatment with suppl emental oxygen and IV steroids and bronchodilators 5. Hypertension; continue with home dose of amlodipine 5 mg daily, metoprolol 100 mg daily 6. Depression/anxiety; continue with Effexor 75 mg daily DVT prophylaxis; SCDs/IV heparin CODE STATUS; full code
[2021-03-12] MEDS: HEPARIN SOD,PORK IN 0.45% NACL 25,000 UNIT in 0.45% NACL 1 250ML.BAG IV SCH (16:20)
[2021-03-12 16:36] LABS: Glucose,Whole Blood 122 mg/dL (75-99)
--- NOTE | 2021-03-12 17:39 | P.CNPUL ---
History of Present Illness Consult date: 03/12/21 Requesting physician: Herminio E Waleska Reason for consult: dyspnea Chief complaint: Shortness of breath History of present illness: This is an 85-year-old female with history of multiple medical problems including chronic atrial fibrillation, hypertension, asthma, tobacco dependence syndrome, patient was brought into the ER with 4 days history of worsening shortness of breath, some cough, no wheezing, no fever no chills no hemoptysis no chest pain. Patient was found to be in atrial flutter with RVR, she was placed on CPAP and she was also found to have positive RSV based on PCR. Tested negative for COVID-19. Chest x-ray showed minimal lingular atelectasis, no evidence of pulmonary edema. Patient was admitted, seen by cardiology on consultation, and I was also asked to see her on consultation. Presently the patient seems to be doing well, she is to liters nasal cannula, and her O2 saturation is 97%. is receiving albuterol, she is also on amiodarone, and she is also on methylprednisolone. Review of Systems CONSTITUTIONAL: Negative CARDIOVASCULAR: As noted in HPI RESPIRATORY: As noted in HPI GASTROINTESTINAL: Negative MUSCULOSKELETAL: Negative NEUROLOGIC: Negative ENDOCRINE: Denies fatigue, weight change, polydipsia or polyurina. GENITOURINARY: Negative HEMATOLOGIC: Negative Past Medical History Past Medical History: Asthma, Hypertension, Osteoarthritis (OA), Syncope Additional Past Medical History / Comment(s): fell 3 weeks after passing out, hit head, neede several stitches, see DR Terrazas [facility], sepsis 2011 & hospitalized for over a month History of Any Multi-Drug Resistant Organisms: None Reported Past Surgical History: Bowel Resection, Hysterectomy, Joint Replacement, Tonsillectomy Additional Past Surgical History / Comment(s): cardioversion, both hips replaced, bowel resection due to perforation & then septic Past Anesthesia/Blood Transfusion Reactions: Blood Transfusion Reaction Additional Past Anesthesia/Blood Transfusion Reaction / Comment(s): Patient states she has had two transfusions and had a bad reaction after one of them. Past Psychological History: No Psychological Hx Reported Smoking Status: Former smoker Past Alcohol Use History: Occasional Past Drug Use History: None Reported Medications and Allergies Home Medications Medication Instructions Recorded Confirmed Type Amiodarone [Cordarone] 50 mg PO DAILY 02/18/14 03/11/21 History Montelukast [Singulair] 10 mg PO HS 02/18/14 03/11/21 History Venlafaxine HCl [Effexor] 75 mg PO DAILY 02/18/14 03/11/21 History amLODIPine [Norvasc] 5 mg PO DAILY 02/18/14 03/11/21 History Albuterol Sulfate [Albuterol 2 puff PO RT-Q6H PRN 03/11/21 03/11/21 History Sulfate Hfa] HYDROcodone/APAP 5-325MG [[place] 1 tab PO TID PRN 03/11/21 03/11/21 History 5-325] Metoprolol Tartrate [Lopressor] 100 mg PO DAILY 03/11/21 03/11/21 History methylPREDNISolone Dose Pack See Taper PO DIRECTED 03/11/21 03/11/21 History [Medrol Dose Pack] Allergies Allergy/AdvReac Type Severity Reaction Status Date / Time No Known Allergies Allergy Verified 03/11/21 16:20 Physical Exam Vitals: Vital Signs Temp Pulse Pulse Resp BP Pulse Ox 03/12/21 16:55 84 03/12/21 13:00 98.3 F 80 22 149/92 97 03/12/21 11:59 88 03/12/21 11:53 84 03/12/21 09:08 92 03/12/21 08:58 88 03/12/21 08:10 97.3 F L 85 26 H 167/93 94 L 03/12/21 04:23 90 03/12/21 04:08 90 03/12/21 04:00 97.7 F 85 24 127/79 100 03/12/21 00:36 92 03/12/21 00:26 95 03/12/21 00:00 97.7 F 82 24 139/76 98 03/11/21 23:42 97.7 F 82 24 139/76 98 03/11/21 19:56 98.3 F 91 23 130/87 100 03/11/21 19:37 100 03/11/21 19:24 98 Intake and Output 03/12/21 03/12/21 03/12/21 06:59 14:59 22:59 Intake Total 159.427 330.573 Output Total 400 Balance 159.427 -69.427 Intake: Intake, IV Titration 159.427 90.573 Amount Heparin Sod,Pork in 0.45% 159.427 90.573 NaCl 25,000 unit In 0.45 % NaCl 1 250ml.bag @ 12 UNITS/KG/HR 9.253 mls/hr IV .Q24H [facility] Rx#: [id number] Oral 240 Output: Urine 400 Other: Voiding Method Bedpan Bedpan # Voids 1 1 1 # Bowel Movements 1 1 2 Weight 77.5 kg 77.5 kg Physical Exam revealed 85-year-old female in no distress. On 2 L nasal cannula. Head: Atraumatic, normocephalic. HEENT:[Neck is supple.] [No neck masses.] [No thyromegaly.] [No JVD.] Chest: [Clear throughout, no crackles, no rhonchi, no wheezes.] Cardiac Exam: Irregular irregular rhythm, no S3 gallop. Abdomen: [Soft, nontender, no megaly, no rebound, no guarding, normal bowel sounds.] Extremities: [No clubbing, no edema, no cyanosis.] Neurological Exam: [No focal neurologic deficit.] Alert oriented 3 Psychiatric: Normal mood affect and normal mental status examination. Skin: No rashes. Results - Laboratory Findings CBC and BMP: 03/12/21 05:30 03/12/21 05:30 PT/INR, D-dimer PT 10.5 sec (9.0-12.0) 03/11/21 14:47 INR 1.0 (<1.2) 03/11/21 14:47 Abnormal lab findings: Abnormal Labs 03/11/21 03/11/21 03/11/21 14:47 14:47 14:47 WBC 10.7 H MCV 104.0 H Neutrophils # 9.0 H Lymphocytes # 0.8 L APTT 21.2 L Potassium BUN 32 H Creatinine Glucose 114 H POC Glucose (mg/dL) Plasma Lactic Acid Eddie Magnesium AST 42 H TSH RSV (PCR) 03/11/21 03/11/21 03/11/21 14:47 15:10 22:18 WBC MCV Neutrophils # Lymphocytes # APTT 30.9 H Potassium BUN Creatinine Glucose POC Glucose (mg/dL) Plasma Lactic Acid Eddie 2.2 H* Magnesium AST TSH RSV (PCR) Detected A 03/12/21 03/12/21 03/12/21 05:30 05:30 05:30 WBC MCV 105.4 H Neutrophils # 8.2 H Lymphocytes # 0.4 L APTT 52.9 H Potassium 5.3 H BUN 39 H Creatinine 1.09 H Glucose 137 H POC Glucose (mg/dL) Plasma Lactic Acid Eddie Magnesium 2.4 H AST TSH 0.070 L RSV (PCR) 03/12/21 03/12/21 11:41 16:34 WBC MCV Neutrophils # Lymphocytes # APTT Potassium BUN Creatinine Glucose POC Glucose (mg/dL) 128 H 122 H Plasma Lactic Acid Eddie Magnesium AST TSH RSV (PCR) - Diagnostic Findings Chest x-ray: image reviewed (As noted in HPI) Assessment and Plan Assessment: Impression: atrial flutter with RVR Mild asthma presently in active Shortness of breath secondary to above. Including her atrial flutter and including underlying asthma Positive RSV PCR, however patient does not have classical symptoms of RSV tracheobronchitis. Not to mention the treatment is conservative and symptomatic. Treatment mostly Benign essential hypertension Recommendation: Fully agree with the present treatment plan as per the admitting physician and as per cardiology Continue DuoNeb updrafts 4 times a day and when necessary. Consider stopping her antibiotics, as no value for antibiotics at this point. Anticoagulation therapy as per cardiology on the case. No need for IV Solu-Medrol. We'll continue to follow Time with Patient: Greater than 30
[2021-03-12] MEDS: METOPROLOL TARTRATE 25 MG TAB PO SCH (18:08)
[2021-03-12 20:11] LABS: Glucose,Whole Blood 149 mg/dL (75-99)
[2021-03-12] MEDS: MONTELUKAST 10 MG TAB PO SCH (20:21)
[2021-03-13 06:00] LABS: Glucose,Whole Blood 117 mg/dL (75-99)
[2021-03-13] MEDS: methylPREDNISolone SOD SUCCI 40 MG/ML 1 ML VIAL IV SCH ×4 (06:47→23:36)
[2021-03-13] MEDS: IPRATROPIUM-ALBUTEROL 3 ML NEB INHALATION PRN ×4 (07:52→21:00)
[2021-03-13] MEDS: METOPROLOL TARTRATE 50 MG TAB PO SCH (08:42)
[2021-03-13] MEDS: VENLAFAXINE HCL 75 MG TAB PO SCH (08:43)
[2021-03-13] MEDS: amLODIPine 5 MG TAB PO SCH (08:43)
[2021-03-13 08:44] LABS: Calcium 9.9 mg/dL (8.4-10.2); Magnesium 2.2 mg/dL (1.6-2.3); Potassium 4.4 mmol/L (3.5-5.1)
[2021-03-13] MEDS: AMIODARONE 100 MG TAB PO SCH (08:44)
[2021-03-13 08:49] LABS: Basophils % (A) 0 %; Eosinophils % (A) 0 %; HCT 43.2 % (34.0-46.0); HGB 13.8 gm/dL (11.4-16.0); Lymphocytes # (A) 0.5 k/uL (1.0-4.8); Lymphocytes % (A) 3 %; MCH 33.9 pg (25.0-35.0); MCV 105.9 fL (80.0-100.0); Macrocytosis Moderate; Monocytes # (A) 0.5 k/uL (0-1.0); Monocytes % (A) 4 %; Neutrophils # (A) 12.9 k/uL (1.3-7.7); Neutrophils % (A) 92 %; Platelet Count 377 k/uL (150-450); RBC 4.08 m/uL (3.80-5.40); RDW 13.6 % (11.5-15.5)
[2021-03-13] MEDS ORDERED: ALPRAZolam 0.25 MG TAB PO PRN (11:59)
[2021-03-13] MEDS ORDERED: guaiFENesin-DM 100-10MG/5ML 10 ML CUP PO PRN (12:00)
[2021-03-13] MEDS: guaiFENesin-DM 100-10MG/5ML 10 ML CUP PO SCH ×2 (12:14→20:50)
--- NOTE | 2021-03-13 12:14 | P.PN ---
Subjective 85-year-old female patient, with history of asthma, hypertension, osteoarthritis and syncope, presents to ED with complaint of shortness of breath which has been gradually worsening for the past 4 days; patient denies any chest pain or fevers; while in ED patient had several rounds of atrial flutter/fibrillation Lab work in ED reveals WBC of 10.7, hemoglobin of 14.1, sodium 141, potassium 4.1, BUN of 32 with creatinine of 1.02, lactic acid level of 2.2 and magnesium of 1.8 Patient was placed on BiPAP which improved her respiratory status; she received Decadron and azithromycin and has been placed on IV heparin and is being admitted for cardiology to evaluate 03-12-21 This is a pleasant 85 years old female who presents with dyspnea thought secondary to acute asthma exacerbation, she was significantly hypoxic and she was placed on BiPAP. Still on BiPAP with a setting of 12/5 with FiO2 of 50%. Patient states she feels a little better. She denies chest pain. Vitals are stable. Tachycardia is improved while she is on metoprolol 100 mg, 25 mg at bedtime is added by cardiology team. Leukocytosis is back to normal at 8.9 and her creatinine is stable at 1.09, also patient with evidence of chronic kidney disease stage III. Currently she kept on Zithromax orally, heparin drip for A. fib but narrow gauge engineer recommended to stop it upon discharge for her recurrent falls. Also she is on Solu-Medrol 40 mg 03/13/2021 Patient with acute asthma and atrial flutter with RVR. Her heart rate today is 123. Patient is still somewhat dyspneic and coughing and says her breathing is better. Saturating 95% on 4 L oxygen via nasal cannula. Labs including CBC and creatinine are stable. Leukocytosis is secondary to steroid effect. Creatinine at baseline of 1.02. Veins on metoprolol 125 mg twice a day, Solu-Medrol 40 mg and heparin drip (c ardiologist recommended to discontinue anticoagulation upon discharge), oral Zithromax Objective - Vital Signs Vital signs: Vital Signs Temp 98.3 F 03/13/21 08:30 Pulse 80 03/13/21 11:11 Resp 20 03/13/21 08:30 BP 146/87 03/13/21 08:30 Pulse Ox 95 03/13/21 08:30 Intake & Output 03/12/21 03/13/21 03/13/21 18:59 06:59 18:59 Intake Total 810.573 306.928 Output Total 400 Balance 410.573 306.928 Weight 77.5 kg 77 kg Intake: Intake, IV Titration 90.573 188.928 Amount Heparin Sod,Pork in 0.45% 90.573 188.928 NaCl 25,000 unit In 0.45 % NaCl 1 250ml.bag @ 12 UNITS/KG/HR 9.253 mls/hr IV .Q24H [facility] Rx#: [id number] Oral 720 118 Output: Urine 400 Other: Voiding Method Bedpan Bedpan Bedpan # Voids 1 1 # Bowel Movements 1 - Exam GENERAL: The patient is alert and oriented x3, not in any acute distress. Well developed, well nourished. HEENT: Pupils are round and equally reacting to light. EOMI. No scleral icterus. No conjunctival pallor. Normocephalic, atraumatic. No pharyngeal erythema. No thyromegaly. CARDIOVASCULAR: S1 and S2 present. No murmurs, rubs, or gallops. -PULMONARY: Chest is clear to auscultation, bilateral scattered wheezing wheezing. No crackles. ABDOMEN: Soft, nontender, nondistended, normoactive bowel sounds. No palpable organomegaly. MUSCULOSKELETAL: No joint swelling or deformity. EXTREMITIES: No cyanosis, clubbing, or pedal edema. NEUROLOGICAL: Gross neurological examination did not reveal any focal deficits. SKIN: No rashes. no petechiae. - Labs CBC & Chem 7: 03/13/21 07:12 03/13/21 07:12 Labs: Abnormal Lab Results - Last 24 Hours (Table) 03/12/21 03/12/21 03/13/21 Range/Units 16:34 20:10 05:58 WBC (3.8-10.6) k/uL MCV (80.0-100.0) fL Neutrophils # (1.3-7.7) k/uL Lymphocytes # (1.0-4.8) k/uL APTT (22.0-30.0) sec BUN (7-17) mg/dL Glucose (74-99) mg/dL POC Glucose (mg/dL) 122 H 149 H 117 H (75-99) mg/dL 03/13/21 03/13/21 03/13/21 Range/Units 07:12 07:12 07:12 WBC 14.0 H (3.8-10.6) k/uL MCV 105.9 H (80.0-100.0) fL Neutrophils # 12.9 H (1.3-7.7) k/uL Lymphocytes # 0.5 L (1.0-4.8) k/uL APTT 35.3 H (22.0-30.0) sec BUN 49 H (7-17) mg/dL Glucose 135 H (74-99) mg/dL POC Glucose (mg/dL) (75-99) mg/dL Assessment and Plan Assessment: 1. Atrial flutter/fibrillation; patient has been placed on IV heparin protocol; increased metoprolol. Cardiology consult is on the case 2. Acute exacerbation asthma; continue with bronchodilator nebulizer treatment; IV steroids with plans to taper as able; azithromycin 500 mg daily. Pulmonary consult 3. Acute hypoxic respiratory failure, improving 4. Acute viral syndrome; RSV PCR positive; influenza A and B is negative; COVID -19 is negative; we will continue with symptomatic treatment with supplemental oxygen and IV steroids and bronchodilators 5. Hypertension; continue with home dose of amlodipine 5 mg daily, metoprolol 100 mg daily 6. Depression/anxiety; continue with Effexor 75 mg daily DVT prophylaxis; SCDs/IV heparin CODE STATUS; full code
[2021-03-13 12:25] LABS: Glucose,Whole Blood 112 mg/dL (75-99)
--- NOTE | 2021-03-13 13:26 | P.PN ---
Subjective Progress Note Date: 03/13/21 Principal diagnosis: Atrial flutter with RVR This is an 85-year-old female with history of multiple medical problems including chronic atrial fibrillation, hypertension, asthma, tobacco dependence syndrome, patient was brought into the ER with 4 days history of worsening shortness of breath, some cough, no wheezing, no fever no chills no hemoptysis no chest pain. Patient was found to be in atrial flutter with RVR, she was placed on CPAP and she was also found to have positive RSV based on PCR. Tested negative for COVID-19. Chest x-ray showed minimal lingular atelectasis, no evidence of pulmonary edema. Patient was admitted, seen by cardiology on consultation, and I was also asked to see her on consultation. Presently the patient seems to be doing well, she is to liters nasal cannula, and her O2 saturation is 97%. is receiving albuterol, she is also on amiodarone, and she is also on methylprednisolone. The patient is seen today 03/13/2021 in follow-up on the selective care unit. She is currently sitting up in a chair at the bedside. Awake and alert in no acute distress. She states her shortness of breath has improved. Heart rate improved. Afebrile. O2 saturation on 4 L with O2 saturations in the mid 90s. White count 14.0. Hemoglobin 13.8. He sodium 140. Potassium 4.4. Creatinine 1.02. She is continued on DuoNeb inhalations, IV Solu-Medrol, Singulair, heparin drip. Objective - Vital Signs Vital signs: Vital Signs Temp 98.1 F 03/13/21 12:00 Pulse 81 03/13/21 12:00 Resp 18 03/13/21 12:00 BP 132/81 03/13/21 12:00 Pulse Ox 97 03/13/21 12:00 Intake & Output 03/12/21 03/13/21 03/13/21 18:59 06:59 18:59 Intake Total 810.573 306.928 Output Total 400 Balance 410.573 306.928 Weight 77.5 kg 77 kg Intake: Intake, IV Titration 90.573 188.928 Amount Heparin Sod,Pork in 0.45% 90.573 188.928 NaCl 25,000 unit In 0.45 % NaCl 1 250ml.bag @ 12 UNITS/KG/HR 9.253 mls/hr IV .Q24H [facility] Rx#: [id number] Oral 720 118 Output: Urine 400 Other: Voiding Method Bedpan Bedpan Bedpan # Voids 1 1 # Bowel Movements 1 - Exam GENERAL EXAM: Alert, pleasant 85-year-old female patient, on 4 L nasal cannula, comfortable in no apparent distress. HEAD: Normocephalic. EYES: Normal reaction of pupils, equal size. NOSE: Clear with pink turbinates. THROAT: No erythema or exudates. NECK: No masses, no JVD. CHEST: No chest wall deformity. LUNGS: Equal air entry with no crackles, wheeze, rhonchi or dullness. CVS: S1 and S2 normal with no audible murmur, regular rhythm. ABDOMEN: No hepatosplenomegaly, normal bowel sounds, no guarding or rigidity. SPINE: No scoliosis or deformity SKIN: No rashes CENTRAL NERVOUS SYSTEM: No focal deficits, tone is normal in all 4 extremities. EXTREMITIES: There is no peripheral edema. No clubbing, no cyanosis. Peripheral pulses are intact. - Labs CBC & Chem 7: 03/13/21 07:12 03/13/21 07:12 Labs: Abnormal Lab Results - Last 24 Hours (Table) 03/12/21 03/12/21 03/13/21 Range/Units 16:34 20:10 05:58 WBC (3.8-10.6) k/uL MCV (80.0-100.0) fL Neutrophils # (1.3-7.7) k/uL Lymphocytes # (1.0-4.8) k/uL APTT (22.0-30.0) sec BUN (7-17) mg/dL Glucose (74-99) mg/dL POC Glucose (mg/dL) 122 H 149 H 117 H (75-99) mg/dL 03/13/21 03/13/21 03/13/21 Range/Units 07:12 07:12 07:12 WBC 14.0 H (3.8-10.6) k/uL MCV 105.9 H (80.0-100.0) fL Neutrophils # 12.9 H (1.3-7.7) k/uL Lymphocytes # 0.5 L (1.0-4.8) k/uL APTT 35.3 H (22.0-30.0) sec BUN 49 H (7-17) mg/dL Glucose 135 H (74-99) mg/dL POC Glucose (mg/dL) (75-99) mg/dL 03/13/21 Range/Units 11:47 WBC (3.8-10.6) k/uL MCV (80.0-100.0) fL Neutrophils # (1.3-7.7) k/uL Lymphocytes # (1.0-4.8) k/uL APTT (22.0-30.0) sec BUN (7-17) mg/dL Glucose (74-99) mg/dL POC Glucose (mg/dL) 112 H (75-99) mg/dL Assessment and Plan Assessment: 1 Atrial flutter with rapid ventricular response 2 Mild exacerbation of chronic mild intermittent bronchial asthma 3 Positive RSV by PCR. 4 Hypertension Plan: The patient was seen and evaluated by Dr. Rodríguez Continue the current treatment plan Titrate the FiO2 as tolerated Anti coagulation per cardiology Probable home in the a.m. We will continue to follow I, the cosigning physician, performed a history & physical examination of the patient. Lungs sounds are clear. Maintaining good O2 saturations in the 90s on 4 L/m per nasal cannula. I discussed the assessment and plan of care with my nurse practitioner, Zabrina Carolina. I attest to the above note as dictated by her.
[2021-03-13 16:46] LABS: Glucose,Whole Blood 119 mg/dL (75-99)
[2021-03-13] MEDS: METOPROLOL TARTRATE 25 MG TAB PO SCH (16:48)
[2021-03-13 19:48] LABS: Glucose,Whole Blood 170 mg/dL (75-99)
[2021-03-13] MEDS: MONTELUKAST 10 MG TAB PO SCH (20:50)
[2021-03-14] MEDS: guaiFENesin-DM 100-10MG/5ML 10 ML CUP PO SCH ×3 (03:36→19:44)
[2021-03-14 06:05] LABS: Glucose,Whole Blood 126 mg/dL (75-99)
[2021-03-14] MEDS: methylPREDNISolone SOD SUCCI 40 MG/ML 1 ML VIAL IV SCH ×4 (06:16→17:52)
[2021-03-14] MEDS: IPRATROPIUM-ALBUTEROL 3 ML NEB INHALATION PRN ×2 (07:08→15:42)
[2021-03-14] MEDS: VENLAFAXINE HCL 75 MG TAB PO SCH (08:48)
[2021-03-14] MEDS: amLODIPine 5 MG TAB PO SCH (08:48)
[2021-03-14] MEDS: METOPROLOL TARTRATE 50 MG TAB PO SCH (08:48)
[2021-03-14] MEDS: AMIODARONE 100 MG TAB PO SCH (08:48)
[2021-03-14 11:54] LABS: Glucose,Whole Blood 198 mg/dL (75-99)
--- NOTE | 2021-03-14 14:10 | P.PN ---
Subjective Progress Note Date: 03/14/21 Principal diagnosis: Atrial flutter with RVR This is an 85-year-old female with history of multiple medical problems including chronic atrial fibrillation, hypertension, asthma, tobacco dependence syndrome, patient was brought into the ER with 4 days history of worsening shortness of breath, some cough, no wheezing, no fever no chills no hemoptysis no chest pain. Patient was found to be in atrial flutter with RVR, she was placed on CPAP and she was also found to have positive RSV based on PCR. Tested negative for COVID-19. Chest x-ray showed minimal lingular atelectasis, no evidence of pulmonary edema. Patient was admitted, seen by cardiology on consultation, and I was also asked to see her on consultation. Presently the patient seems to be doing well, she is to liters nasal cannula, and her O2 saturation is 97%. is receiving albuterol, she is also on amiodarone, and she is also on methylprednisolone. The patient is seen today 03/13/2021 in follow-up on the selective care unit. She is currently sitting up in a chair at the bedside. Awake and alert in no acute distress. She states her shortness of breath has improved. Heart rate improved. Afebrile. O2 saturation on 4 L with O2 saturations in the mid 90s. White count 14.0. Hemoglobin 13.8. He sodium 140. Potassium 4.4. Creatinine 1.02. She is continued on DuoNeb inhalations, IV Solu-Medrol, Singulair, heparin drip. On 03/14/2021 patient seen in follow-up on selective care unit, she is awake and alert, in no acute distress, she is on 4 L of oxygen the pulse ox of 90%, she's had no acute events overnight, she sits up in the chair, she is coughing, overall feeling better, breathing easier, she's had no fever or chills, vital signs have been stable, her heart rate is better controlled, patient remains on IV Solu-Medrol 40 mg every 6 hours, she is on Singulair, Robitussin DM, and breathing treatments, she was positive for RSV, COVID-19 PCR was negative, influenza was negative. No complaints of chest discomfort. Objective - Vital Signs Vital signs: Vital Signs Temp 98.3 F 03/14/21 08:00 Pulse 81 03/14/21 13:25 Resp 24 03/14/21 13:25 BP 124/72 03/14/21 11:28 Pulse Ox 95 03/14/21 11:28 Intake & Output 03/13/21 03/14/21 03/14/21 18:59 06:59 18:59 Intake Total 786.928 510 Balance 786.928 510 Weight 76.5 kg Intake: Intake, IV Titration 188.928 Amount Heparin Sod,Pork in 0.45% 188.928 NaCl 25,000 unit In 0.45 % NaCl 1 250ml.bag @ 12 UNITS/KG/HR 9.253 mls/hr IV .Q24H [facility] Rx#: [id number] Oral 598 510 Other: Voiding Method Bedpan Bedpan Bedpan Diaper Diaper # Voids 2 1 - Exam GENERAL EXAM: Alert, very pleasant, 85-year-old female, sitting up in the recliner, currently on 4 L of oxygen with a pulse ox of 95% comfortable in no apparent distress. HEAD: Normocephalic/atraumatic. EYES: Normal reaction of pupils, equal size. Conjunctiva pink, sclera white. NOSE: Clear with pink turbinates. THROAT: No erythema or exudates. NECK: No masses, no JVD, no thyroid enlargement, no adenopathy. CHEST: No chest wall deformity. Symmetrical expansion. LUNGS: Equal air entry with no crackles, wheeze, rhonchi or dullness. CVS: Irregular rate and rhythm, normal S1 and S2, no gallops, no murmurs, no rubs ABDOMEN: Soft, nontender. No hepatosplenomegaly, normal bowel sounds, no guarding or rigidity. EXTREMITIES: No clubbing, no edema, no cyanosis, 2+ pulses and upper and lower extremities. MUSCULOSKELETAL: Muscle strength and tone normal. SPINE: No scoliosis or deformity SKIN: No rashes CENTRAL NERVOUS SYSTEM: Alert and oriented -3. No focal deficits, tone is normal in all 4 extremities. PSYCHIATRIC: Alert and oriented -3. Appropriate affect. Intact judgment and insight. - Labs CBC & Chem 7: 03/13/21 07:12 03/13/21 07:12 Labs: Abnormal Lab Results - Last 24 Hours (Table) 03/13/21 03/13/21 03/14/21 Range/Units 16:43 19:45 06:03 POC Glucose (mg/dL) 119 H 170 H 126 H (75-99) mg/dL 03/14/21 Range/Units 11:53 POC Glucose (mg/dL) 198 H (75-99) mg/dL Assessment and Plan Plan: Assessment: #1. Atrial flutter with rapid ventricular response, currently better controlled, on a combination of oral amiodarone, and metoprolol 100 mg daily. Patient is on heparin infusion while in the hospital, which was discontinued today, however no long-term anticoagulation is recommended related to history of falls #2. Shortness of breath, related to acute exacerbation of mild intermittent bronchial asthma #3. Positive RSV PCR, without typical symptoms of RSV tracheobronchitis #4. Benign essential hypertension #5. Osteoarthritis #6. History of recurrent falls at home, with contraindication for long-term anticoagulation #7. Former smoker #8. 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 I reviewed the nurse practitioner's note and agree with the documented findings and plan of care. Lung sounds are positive for diminished breath sounds throughout the lung rodriguez. The findings and the impression was discussed with the patient. I attest to the documentation by the nurse practitioner. Time with Patient: Less than 30
[2021-03-14 16:19] LABS: Glucose,Whole Blood 107 mg/dL (75-99)
[2021-03-14] MEDS: METOPROLOL TARTRATE 25 MG TAB PO SCH (17:52)
[2021-03-14] MEDS: MONTELUKAST 10 MG TAB PO SCH (19:44)
--- NOTE | 2021-03-14 20:12 | P.DS ---
Providers Date of admission: 03/11/21 16:28 Attending physician: Arianna Abel MD Consults: 03/11/21 16:27 Consult Physician Routine Consulting Provider: Manuel Waller Consult Reason/Comments: asthma exacerbation, hypoxia Do you want consulting provider notified?: Yes Primary care physician: Myranda Jaquez Hospital Course: Diagnoses: 1. Atrial flutter/fibrillation 2. Acute exacerbation asthma 3. Acute hypoxic respiratory failure, improving 4. Acute viral syndrome; RSV PCR positive; influenza A and B is negative; COVID-19 is negative 5. Hypertension 6. Depression/anxiety;not active issue Hospital course: 85-year-old female patient, with history of asthma, hypertension, osteoarthritis and syncope, presents to ED with complaint of shortness of breath which has been gradually worsening for the past 4 days; patient denies any chest pain or fevers; while in ED patient had several rounds of atrial flutter/fibrillation. Patient was found to have asthma and RSV viral infection of the respiratory symptom causing acute hypoxic respiratory failure. Patient responded to treatment with Solu-Medrol and oral Zithromax. Her oxygen requirement down to 3-4 L/m upon discharge. Her symptoms significantly improved and she feels can be discharged today. Pulmonary team are following the patient closely and they cleared her for discharge. The chest also evaluated the patient for A. fib and RVR, increase her metoprolol 100 mg daily to 125 mg daily and divided 2 doses. No need for anticoagulation upon discharge as it is contraindicated given her multiple falls as well as risks more than benefits, this recommendation confirmed per tassel maker when I discussed with them patient looks clinically stable. No chest pain. No abdominal pain. No change in urine or bowel habits. No fever. Problems and management plan were discussed with the patient and he verbalized understanding and acceptance Patient was found stable and can be discharged home however he needs follow-up as an outpatient. Patient was instructed to follow up with PCP Dr. Myranda martinez within one week and patient agrees Patient was instructed to follow up with Dr. Myranda saha in 3 weeks and she agrees Also patient was instructed to follow up with Dr. Waller in 2-3 weeks Physical exam Gen: patient is a AAOx3, no distress CVS: S1-S2, RRR, no murmur Lungs: B/L CTA, no wheezing Abdomen: soft, no distention, no tenderness, positive bowel sounds Extremity: no leg edema or induration Time spent more than 35 minutes Patient Condition at Discharge: Fair Plan - Discharge Summary Discharge Rx Participant: No New Discharge Prescriptions: New methylPREDNISolone Dose Pack [Medrol Dose Pack] 4 mg PO DIRECTED #21 tab RX: guaiFENesin-DM 100-10MG/5ML [Robitussin DM] 10 ml PO Q8H PRN 5 Days #60 ml PRN Reason: Cough RX: Metoprolol Tartrate [Lopressor] 25 mg PO DAILY@1700 tab Continue RX: Venlafaxine HCl [Effexor] 75 mg PO DAILY RX: Montelukast [Singulair] 10 mg PO HS RX: amLODIPine [Norvasc] 5 mg PO DAILY RX: Amiodarone [Cordarone] 50 mg PO DAILY RX: Metoprolol Tartrate [Lopressor] 100 mg PO DAILY RX: Albuterol Sulfate [Albuterol Sulfate Hfa] 2 puff PO RT-Q6H PRN PRN Reason: Shortness Of Breath Discontinued methylPREDNISolone Dose Pack [Medrol Dose Pack] See Taper PO DIRECTED HYDROcodone/APAP 5-325MG [[place] 5-325] 1 tab PO TID PRN PRN Reason: Pain Discharge Medication List RX: Amiodarone [Cordarone] 50 mg PO DAILY 02/18/14 [History] RX: Montelukast [Singulair] 10 mg PO HS 02/18/14 [History] RX: Venlafaxine HCl [Effexor] 75 mg PO DAILY 02/18/14 [History] RX: amLODIPine [Norvasc] 5 mg PO DAILY 02/18/14 [History] RX: Albuterol Sulfate [Albuterol Sulfate Hfa] 2 puff PO RT-Q6H PRN 03/11/21 [History] RX: Metoprolol Tartrate [Lopressor] 100 mg PO DAILY 03/11/21 [History] RX: Metoprolol Tartrate [Lopressor] 25 mg PO DAILY@1700 tab 03/14/21 [Rx] RX: guaiFENesin-DM 100-10MG/5ML [Robitussin DM] 10 ml PO Q8H PRN 5 Days #60 ml 03/14/21 [Rx] methylPREDNISolone Dose Pack [Medrol Dose Pack] 4 mg PO DIRECTED #21 tab 03/14/21 [Rx] Follow up Appointment(s)/Referral(s): Cristobal Harrison MD [STAFF PHYSICIAN] - 3 Weeks Myranda Jaquez MD [Primary Care Provider] - 1-2 days Manuel Waller MD [STAFF PHYSICIAN] - 3 Weeks Activity/Diet/Wound Care/Special Instructions: heart healthy diet activity is restricted till you see your doctor
[2021-03-14 20:29] LABS: Glucose,Whole Blood 135 mg/dL (75-99)
[2021-03-15] MEDS: methylPREDNISolone SOD SUCCI 40 MG/ML 1 ML VIAL IV SCH ×3 (00:54→12:03)
[2021-03-15 02:24] VITALS: RESP 20
[2021-03-15] MEDS: guaiFENesin-DM 100-10MG/5ML 10 ML CUP PO SCH ×2 (05:06→12:02)
[2021-03-15] MEDS: IPRATROPIUM-ALBUTEROL 3 ML NEB INHALATION PRN (08:35)
[2021-03-15] MEDS: METOPROLOL TARTRATE 50 MG TAB PO SCH (09:33)
[2021-03-15] MEDS: VENLAFAXINE HCL 75 MG TAB PO SCH (09:33)
[2021-03-15] MEDS: AMIODARONE 100 MG TAB PO SCH (09:33)
[2021-03-15] MEDS: amLODIPine 5 MG TAB PO SCH (09:33)
[2021-03-15 13:18] VITALS: BMI 28.9
--- NOTE | 2021-03-15 14:31 | P.DS ---
Providers Date of admission: 03/11/21 16:28 Attending physician: Arianna Abel MD Consults: 03/11/21 16:27 Consult Physician Routine Consulting Provider: Manuel Waller Consult Reason/Comments: asthma exacerbation, hypoxia Do you want consulting provider notified?: Yes Primary care physician: Myranda Jaquez Hospital Course: Diagnoses: 1. Atrial flutter/fibrillation 2. Acute exacerbation asthma 3. Acute hypoxic respiratory failure, improving 4. Acute viral syndrome; RSV PCR positive; influenza A and B is negative; COVID-19 is negative 5. Hypertension 6. Depression/anxiety;not active issue Hospital course: 85-year-old female patient, with history of asthma, hypertension, osteoarthritis and syncope, presents to ED with complaint of shortness of breath which has been gradually worsening for the past 4 days; patient denies any chest pain or fevers; while in ED patient had several rounds of atrial flutter/fibrillation. Patient was found to have asthma and RSV viral infection of the respiratory symptom causing acute hypoxic respiratory failure. Patient responded to treatment with Solu-Medrol and oral Zithromax. Her oxygen requirement down to 3-4 L/m upon discharge. Her symptoms significantly improved and she feels can be discharged today. Pulmonary team are following the patient closely and they cleared her for discharge. The chest also evaluated the patient for A. fib and RVR, increase her metoprolol 100 mg daily to 125 mg daily and divided 2 doses. No need for anticoagulation upon discharge as it is contraindicated given her multiple falls as well as risks more than benefits, this recommendation confirmed per automobile dealer when I discussed with them patient looks clinically stable. No chest pain. No abdominal pain. No change in urine or bowel habits. No fever. Problems and management plan were discussed with the patient and he verbalized understanding and acceptance Patient was found stable and can be discharged home however he needs follow-up as an outpatient. Patient was instructed to follow up with PCP Dr. Myranda martinez within one week and patient agrees Patient was instructed to follow up with Dr. Myranda asha in 3 weeks and she agrees Also patient was instructed to follow up with Dr. Waller in 2-3 weeks Physical exam Gen: patient is a AAOx3, no distress CVS: S1-S2, RRR, no murmur Lungs: B/L CTA, no wheezing Abdomen: soft, no distention, no tenderness, positive bowel sounds Extremity: no leg edema or induration Time spent more than 35 minutes Patient Condition at Discharge: Fair Plan - Discharge Summary Discharge Rx Participant: No New Discharge Prescriptions: New guaiFENesin-DM 100-10MG/5ML [Robitussin DM] 10 ml PO Q8H PRN 5 Days #60 ml PRN Reason: Cough Ipratropium-Albuterol Nebulize [Duoneb 0.5 mg-3 mg/3 ml Soln] 3 ml INHALATION RT-Q4H PRN ml PRN Reason: Shortness Of Breath Or Wheezing Metoprolol Tartrate [Lopressor] 25 mg PO DAILY@1700 tab predniSONE 10 mg PO DIRECTED #40 tab Continue Venlafaxine HCl [Effexor] 75 mg PO DAILY Montelukast [Singulair] 10 mg PO HS amLODIPine [Norvasc] 5 mg PO DAILY Amiodarone [Cordarone] 50 mg PO DAILY Metoprolol Tartrate [Lopressor] 100 mg PO DAILY Albuterol Sulfate [Albuterol Sulfate Hfa] 2 puff PO RT-Q6H PRN PRN Reason: Shortness Of Breath Discontinued methylPREDNISolone Dose Pack [Medrol Dose Pack] See Taper PO DIRECTED HYDROcodone/APAP 5-325MG [[place] 5-325] 1 tab PO TID PRN PRN Reason: Pain Discharge Medication List Amiodarone [Cordarone] 50 mg PO DAILY 02/18/14 [History] Montelukast [Singulair] 10 mg PO HS 02/18/14 [History] Venlafaxine HCl [Effexor] 75 mg PO DAILY 02/18/14 [History] amLODIPine [Norvasc] 5 mg PO DAILY 02/18/14 [History] Albuterol Sulfate [Albuterol Sulfate Hfa] 2 puff PO RT-Q6H PRN 03/11/21 [History] Metoprolol Tartrate [Lopressor] 100 mg PO DAILY 03/11/21 [History] Metoprolol Tartrate [Lopressor] 25 mg PO DAILY@1700 tab 03/14/21 [Rx] guaiFENesin-DM 100-10MG/5ML [Robitussin DM] 10 ml PO Q8H PRN 5 Days #60 ml 03/14/21 [Rx] Ipratropium-Albuterol Nebulize [Duoneb 0.5 mg-3 mg/3 ml Soln] 3 ml INHALATION RT-Q4H PRN ml 03/15/21 [Rx] predniSONE 10 mg PO DIRECTED #40 tab 03/15/21 [Rx] Follow up Appointment(s)/Referral(s): Cristobal Harrison MD [STAFF PHYSICIAN] - 04/03/21 11:30 am Myranda Jaquez MD [Primary Care Provider] - 1-2 days Manuel Waller MD [STAFF PHYSICIAN] - 04/04/21 2:45 pm Activity/Diet/Wound Care/Special Instructions: heart healthy diet activity is restricted till you see your doctor
[2021-03-15 15:42] VITALS: BP 140/69; PULSE 73; TEMP 98
== END 2021-03-15 16:28 | DRG 189 ==
LOC: EC 14:25 → 3SCARD 16:28 → 4SSUR 03-14 23:15
PROVIDERS: ADMIT Internal Medicine; ATTEND Internal Medicine
DX: J96.01 Acute respiratory failure with hypoxia (principal); J45.901 Unspecified asthma with (acute) exacerbation; E87.2 Acidosis; I13.0 Hypertensive heart and chronic kidney disease with heart failure and stage 1 through stage 4 chronic kidney disease, or unspecified chronic kidney disease; I48.19 Other persistent atrial fibrillation; I48.3 Typical atrial flutter; B97.4 Respiratory syncytial virus as the cause of diseases classified elsewhere; I50.9 Heart failure, unspecified; N18.30 Chronic kidney disease, stage 3 unspecified; F32.9 Major depressive disorder, single episode, unspecified; Z20.822 Contact with and (suspected) exposure to COVID-19; F41.9 Anxiety disorder, unspecified; R29.6 Repeated falls; Z96.643 Presence of artificial hip joint, bilateral; M19.90 Unspecified osteoarthritis, unspecified site; Z79.899 Other long term (current) drug therapy; Z91.81 History of falling; Z87.891 Personal history of nicotine dependence; Z90.710 Acquired absence of both cervix and uterus; Z90.49 Acquired absence of other specified parts of digestive tract; Z79.01 Long term (current) use of anticoagulants
CPT/HCPCS: 36415; 71045; 80048; 80053; 83605; 83735; 83880; 84439; 84443; 84484; 85025; 85610; 85730; 87634; 87636; 93005; 94640; 94660; 94760; 96374; 96375; 99291

== ENCOUNTER 2022-08-31 09:09 | Inpatient (IN) | payer MEDICARE ==
[2022-08-31 09:21] LABS: Glucose,Whole Blood 95 mg/dL (70-110)
[2022-08-31] MEDS ORDERED: SODIUM CHLORIDE 0.9% 1,000 ML IV STA (09:23)
--- NOTE | 2022-08-31 09:25 | ED ---
Fall HPI - General Chief Complaint: Fall Stated Complaint: Fall-confusion Time Seen by Provider: 08/31/22 09:15 Source: EMS Mode of arrival: EMS - History of Present Illness Initial Comments: 87-year-old female with past medical history of asthma, osteoarthritis presents to the emergency department. She was found down in her garage. She states that she was getting groceries out at 5 PM when she fell including get back up. Patient struggled for several hours attempting to move herself from the floor. She ended up shifting herself and was found underneath her vehicle. Neighbors saw that her garage door was open this morning and entered to find her on the ground under the car. She had significant bruising to her lower extremities and was covered in blood. Patient has facial swelling. She is alert and able to provide history. Mentation seems to be appropriate. Does complain of chronic hip and back pain however denies any new pain. She is moving all extremities. Patient is c-collar. Denies headache, visual changes or neck pain. No chest pain or shortness of breath. She does have some hoarseness to her voice. HPI is limited due to the hoarseness I discussed the patient's care with her daughter. She is the power of deputy prosecuting attorney. States that her mother had to be intubated for a month at [facility]. She has significant asthma and anxiety. She failed all weaning trials due to hypertension and anxiety. She required a trach. Patient wants to continue with her same quality of life that she has now and any adjustment to this quality would be unacceptable to her. Does not want the patient to be on the ventilator if absolutely not necessary. - Related Data Home Medications Medication Instructions Recorded Confirmed Amiodarone [Cordarone] 50 mg PO DAILY 02/18/14 08/31/22 Montelukast [Singulair] 10 mg PO DAILY 02/18/14 08/31/22 amLODIPine [Norvasc] 5 mg PO DAILY 02/18/14 08/31/22 Albuterol Sulfate [Albuterol 2 puff INHALATION RT-Q6H PRN 03/11/21 08/31/22 Sulfate Hfa] Metoprolol Tartrate [Lopressor] 100 mg PO BID 03/11/21 08/31/22 Aspirin EC [Ecotrin Low Dose] 81 mg PO DAILY 08/31/22 08/31/22 Venlafaxine HCl ER [Effexor XR] 75 mg PO DAILY 08/31/22 08/31/22 Previous Rx's Medication Instructions Recorded HYDROcodone/APAP 5-325MG [Latty 1 tab PO Q8H #9 tab 09/04/22 5-325] cefUROXime axetiL [Cefuroxime] 500 mg PO BID #10 tab 09/04/22 Allergies Allergy/AdvReac Type Severity Reaction Status Date / Time No Known Allergies Allergy Verified 08/31/22 12:37 Review of Systems ROS Statement: Those systems with pertinent positive or pertinent negative responses have been documented in the HPI. ROS Other: All systems not noted in ROS Statement are negative. 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 Past Psychological History: No Psychological Hx Reported Smoking Status: Former smoker Past Alcohol Use History: Occasional Past Drug Use History: None Reported General Exam Limitations: altered mental status General appearance: alert Head exam: Present: other (right eye swollen shut) Eye exam: Present: normal appearance, PERRL, EOMI. Absent: scleral icterus, conjunctival injection, periorbital swelling ENT exam: Present: mucous membranes dry, TM's normal bilaterally, other (swollen lips) Neck exam: Present: normal inspection. Absent: tenderness, meningismus, lymphadenopathy Respiratory exam: Present: normal lung sounds bilaterally. Absent: respiratory distress, wheezes, rales, rhonchi, stridor Cardiovascular Exam: Present: bradycardia GI/Abdominal exam: Present: soft Rectal exam: Present: normal inspection Extremities exam: Present: other (pressure ulcer over left knee. Numerous abrasions and skin tears mimi anterior shins. Avusled bilateral great toe nails) Back exam: Present: normal inspection Neurological exam: Present: alert, oriented X3, CN II-XII intact Psychiatric exam: Present: normal affect, normal mood Skin exam: Present: pallor, abrasion Course Vital Signs 08/31/22 08/31/22 08/31/22 09:10 12:30 13:00 Temperature 91.2 F L 97.9 F 98.8 F Pulse Rate 54 L 86 86 Respiratory 18 18 18 Rate Blood Pressure 119/87 106/74 114/74 O2 Sat by Pulse 97 96 96 Oximetry 08/31/22 08/31/22 08/31/22 13:13 13:23 13:30 Temperature 99.1 F Pulse Rate 90 100 95 Respiratory 18 Rate Blood Pressure 111/71 O2 Sat by Pulse 95 Oximetry 08/31/22 08/31/22 14:00 15:00 Temperature 99.3 F 99.5 F Pulse Rate 93 79 Respiratory 18 18 Rate Blood Pressure 111/88 121/67 O2 Sat by Pulse 92 L 93 L Oximetry Medical Decision Making - Medical Decision Making Was pt. sent in by a medical professional or institution (Dr. PA, VARNISH COOKER, urgent care, hospital, or longterm...) When possible be specific @ -No Did you speak to anyone other than the patient for history (EMS, parent, family, police, friend...)? What history was obtained from this source @ -EMS Did you review nursing and triage notes (agree or disagree)? Why? @ -I reviewed and agree with nursing and triage notes Were old charts reviewed (outside hosp., previous admission, EMS record, old EKG, old radiological studies, urgent care reports/EKG's, longterm records)? Report findings @ -old charts were reviewed to gain history on patient Differential Diagnosis (chest pain, altered mental status, abdominal pain women, abdominal pain men, vaginal bleeding, weakness, fever, dyspnea, syncope, headache, dizziness, GI bleed, back pain, seizure, CVA, palpatations, mental health, musculoskeletal)? @ -assault, fall, concussion EKG interpreted by me (3pts min.). @ -As above X-rays interpreted by me (1pt min.). @ -yes CT interpreted by me (1pt min.). @ -yes U/S interpreted by me (1pt. min.). @ -None done What testing was considered but not performed or refused? (CT, X-rays, U/S, labs)? Why? @ -None What meds were considered but not given or refused? Why? @ -None Did you discuss the management of the patient with other professionals (professionals i.e. , PA, VARNISH COOKER, lab, RT, psych nurse, social work assistant, carpenter prototype, teacher, sheriff's officer, wrapper caser)? Give summary @ -Dr. Jaquez Was smoking cessation discussed for >3mins.? @ -No Was critical care preformed (if so, how long)? @ -yes,40 mins Were there social determinants of health that impacted care today? How? (Homelessness, low income, unemployed, alcoholism, drug addiction, transportation, low edu. Level, literacy, decrease access to med. care, alf, rehab)? @ -No Was there de-escalation of care discussed even if they declined (Discuss DNR or withdrawal of care, Hospice)? DNR status @ -yes What co-morbidities impacted this encounter? (DM, HTN, Smoking, COPD, CAD, Canc er, CVA, ARF, Chemo, Hep., AIDS, mental health diagnosis, sleep apnea, morbid obesity)? @ -Asthma Was patient admitted / discharged? Hospital course, mention meds given and route, prescriptions, significant lab abnormalities, going to OR and other pertinent info. @ -Upon arrival the patient is placed into trauma 2. She is activated as a pr iority 2 trauma due to significance of injuries and physician discretion. Airway is patent however speech is garbled. She has bilateral breath sounds. 2+ upper and lower extremity pulses. Disability is assessed which demonstrates intact cognition. IV is established and she is given a liter bolus of warm saline and 1000 mg of Tylenol. Temperature is 91.2F. Laboratory studies reveal a white count of 16.3. Troponin 2.1. Lactic acid 6.4. CK 1405. Urinalysis is grossly infected. She is given a dose of Rocephin for her UTI as well as open wounds. Tetanus is up-to-date. States she had one at least one year ago. Patient is sent for CT imaging of her brain, cervical spine, chest abdomen and pelvis. I did speak with family in regards to possible intubation due to airway obstruction. Daughter who is POA is adamant that the patient's can only be intubated if absolutely necessary. She was previously intubated for 2 months and had difficulty weaning from the event. She required a trach. Patient head of bed is elevated and she does have improvement in her facial swelling. Voice becomes more clear. CT imaging demonstrates a questionable L1 fracture. Patient is started on 130 mL of saline per hour. Will be admitted to trauma service with cardiology, primary care, infectious disease and orthopedics to consult. Dr. Jaquez does present to the emergency department to evaluate the patient. She was taken to the floor in stable condition Undiagnosed new problem with uncertain prognosis? @ -yes Drug Therapy requiring intensive monitoring for toxicity (Heparin, Nitro, Insulin, Cardizem)? @ -No Were any procedures done? @ -No Diagnosis/symptom? @ -Fall, prolonged downtime, concussion, facial edema, pressure ulcer left k nee, elevated ck, hypothermia Acute, or Chronic, or Acute on Chronic? @ -acute Uncomplicated (without systemic symptoms) or Complicated (systemic symptoms)? @ -complicated Side effects of treatment? @ -No Exacerbation, Progression, or Severe Exacerbation? @ -No Poses a threat to life or bodily function? How? (Chest pain, [place], [place], pneumonia, PE, COPD, DKA, ARF, appy, cholecystitis, CVA, Diverticulitis, Homicidal, Suicidal, threat to staff... and all critical care pts) @ -yes - Lab Data Result diagrams: 09/02/22 06:56 09/04/22 11:10 Lab Results 08/31/22 08/31/22 08/31/22 Range/Units 09:19 09:20 09:20 WBC (3.8-10.6) k/uL RBC (3.80-5.40) m/uL Hgb (11.4-16.0) gm/dL Hct (34.0-46.0) % MCV (80.0-100.0) fL MCH (25.0-35.0) pg MCHC (31.0-37.0) g/dL RDW (11.5-15.5) % Plt Count (150-450) k/uL MPV Neutrophils % % Lymphocytes % % Monocytes % % Eosinophils % % Basophils % % Neutrophils # (1.3-7.7) k/uL Lymphocytes # (1.0-4.8) k/uL Monocytes # (0-1.0) k/uL Eosinophils # (0-0.7) k/uL Basophils # (0-0.2) k/uL Manual Slide Review Macrocytosis PT 10.0 (9.0-12.0) sec INR 0.9 (<1.2) APTT 21.9 L (22.0-30.0) sec Sodium (137-145) mmol/L Potassium (3.5-5.1) mmol/L Chloride (98-107) mmol/L Carbon Dioxide (22-30) mmol/L Anion Gap mmol/L BUN (7-17) mg/dL Creatinine (0.52-1.04) mg/dL Est GFR (CKD-EPI)AfAm (>60 ml/min/1.73 sqM) Est GFR (CKD-EPI)NonAf (>60 ml/min/1.73 sqM) Glucose (74-99) mg/dL POC Glucose (mg/dL) 95 (70-110) mg/dL POC Glu Doorshaker ID Lactic Ac Sepsis Rflx Plasma Lactic Acid Eddie 6.4 H* (0.7-2.0) mmol/L Calcium (8.4-10.2) mg/dL Total Bilirubin (0.2-1.3) mg/dL AST (14-36) U/L ALT (4-34) U/L Alkaline Phosphatase (38-126) U/L Creatine Kinase (30-135) U/L Troponin I (0.000-0.034) ng/mL Total Protein (6.3-8.2) g/dL Albumin (3.5-5.0) g/dL Urine Color Urine Appearance (Clear) Urine pH (5.0-8.0) Ur Specific [place] (1.001-1.035) Urine Protein (Negative) Urine Glucose (UA) (Negative) Urine Ketones (Negative) Urine Blood (Negative) Urine Nitrite (Negative) Urine Bilirubin (Negative) Urine Urobilinogen (<2.0) mg/dL Ur Leukocyte Esterase (Negative) Urine RBC (0-5) /hpf Urine WBC (0-5) /hpf Urine WBC Clumps (None) /hpf Ur Squamous Epith Cells (0-4) /hpf Urine Bacteria (None) /hpf Hyaline Casts (0-2) /lpf Urine Mucus (None) /hpf Urine Opiates Screen (NotDetected) Ur Oxycodone Screen (NotDetected) Urine Methadone Screen (NotDetected) Ur Propoxyphene Screen (NotDetected) Ur Barbiturates Screen (NotDetected) U Tricyclic Antidepress (NotDetected) Ur Phencyclidine Scrn (NotDetected) Ur Amphetamines Screen (NotDetected) U Methamphetamines Scrn (NotDetected) U Benzodiazepines Scrn (NotDetected) Urine Cocaine Screen (NotDetected) U Marijuana (THC) Screen (NotDetected) Serum Alcohol mg/dL Blood Type Blood Type Recheck Bld Type Recheck Status Antibody Screen Spec Expiration Date 08/31/22 08/31/22 08/31/22 Range/Units 09:20 09:20 09:23 WBC 16.3 H (3.8-10.6) k/uL RBC 3.96 (3.80-5.40) m/uL Hgb 13.6 (11.4-16.0) gm/dL Hct 42.9 (34.0-46.0) % MCV 108.4 H (80.0-100.0) fL MCH 34.3 (25.0-35.0) pg MCHC 31.7 (31.0-37.0) g/dL RDW 13.7 (11.5-15.5) % Plt Count 258 (150-450) k/uL MPV 7.9 Neutrophils % 87 % Lymphocytes % 3 % Monocytes % 7 % Eosinophils % 0 % Basophils % 0 % Neutrophils # 14.2 H (1.3-7.7) k/uL Lymphocytes # 0.5 L (1.0-4.8) k/uL Monocytes # 1.1 H (0-1.0) k/uL Eosinophils # 0.0 (0-0.7) k/uL Basophils # 0.1 (0-0.2) k/uL Manual Slide Review Performed Macrocytosis Marked A PT (9.0-12.0) sec INR (<1.2) APTT (22.0-30.0) sec Sodium (137-145) mmol/L Potassium (3.5-5.1) mmol/L Chloride (98-107) mmol/L Carbon Dioxide (22-30) mmol/L Anion Gap mmol/L BUN (7-17) mg/dL Creatinine (0.52-1.04) mg/dL Est GFR (CKD-EPI)AfAm (>60 ml/min/1.73 sqM) Est GFR (CKD-EPI)NonAf (>60 ml/min/1.73 sqM) Glucose (74-99) mg/dL POC Glucose (mg/dL) (70-110) mg/dL POC Glu Doorshaker ID Lactic Ac Sepsis Rflx Plasma Lactic Acid Eddie (0.7-2.0) mmol/L Calcium (8.4-10.2) mg/dL Total Bilirubin (0.2-1.3) mg/dL AST (14-36) U/L ALT (4-34) U/L Alkaline Phosphatase (38-126) U/L Creatine Kinase (30-135) U/L Troponin I 2.160 H* (0.000-0.034) ng/mL Total Protein (6.3-8.2) g/dL Albumin (3.5-5.0) g/dL Urine Color Urine Appearance (Clear) Urine pH (5.0-8.0) Ur Specific [place] (1.001-1.035) Urine Protein (Negative) Urine Glucose (UA) (Negative) Urine Ketones (Negative) Urine Blood (Negative) Urine Nitrite (Negative) Urine Bilirubin (Negative) Urine Urobilinogen (<2.0) mg/dL Ur Leukocyte Esterase (Negative) Urine RBC (0-5) /hpf Urine WBC (0-5) /hpf Urine WBC Clumps (None) /hpf Ur Squamous Epith Cells (0-4) /hpf Urine Bacteria (None) /hpf Hyaline Casts (0-2) /lpf Urine Mucus (None) /hpf Urine Opiates Screen (NotDetected) Ur Oxycodone Screen (NotDetected) Urine Methadone Screen (NotDetected) Ur Propoxyphene Screen (NotDetected) Ur Barbiturates Screen (NotDetected) U Tricyclic Antidepress (NotDetected) Ur Phencyclidine Scrn (NotDetected) Ur Amphetamines Screen (NotDetected) U Methamphetamines Scrn (NotDetected) U Benzodiazepines Scrn (NotDetected) Urine Cocaine Screen (NotDetected) U Marijuana (THC) Screen (NotDetected) Serum Alcohol mg/dL Blood Type AB Positive Blood Type Recheck AB Pos Bld Type Recheck Status No Antibody Screen NEGATIVE Spec Expiration Date 09/03/2022231908/31/22 08/31/22 08/31/22 Range/Units 09:56 10:02 10:24 WBC (3.8-10.6) k/uL RBC (3.80-5.40) m/uL Hgb (11.4-16.0) gm/dL Hct (34.0-46.0) % MCV (80.0-100.0) fL MCH (25.0-35.0) pg MCHC (31.0-37.0) g/dL RDW (11.5-15.5) % Plt Count (150-450) k/uL MPV Neutrophils % % Lymphocytes % % Monocytes % % Eosinophils % % Basophils % % Neutrophils # (1.3-7.7) k/uL Lymphocytes # (1.0-4.8) k/uL Monocytes # (0-1.0) k/uL Eosinophils # (0-0.7) k/uL Basophils # (0-0.2) k/uL Manual Slide Review Macrocytosis PT (9.0-12.0) sec INR (<1.2) APTT (22.0-30.0) sec Sodium 135 L (137-145) mmol/L Potassium 5.5 H (3.5-5.1) mmol/L Chloride 102 (98-107) mmol/L Carbon Dioxide 18 L (22-30) mmol/L Anion Gap 15 mmol/L BUN 37 H (7-17) mg/dL Creatinine 1.78 H (0.52-1.04) mg/dL Est GFR (CKD-EPI)AfAm 29 (>60 ml/min/1.73 sqM) Est GFR (CKD-EPI)NonAf 25 (>60 ml/min/1.73 sqM) Glucose 90 (74-99) mg/dL POC Glucose (mg/dL) (70-110) mg/dL POC Glu Doorshaker ID Lactic Ac Sepsis Rflx Y Plasma Lactic Acid Eddie (0.7-2.0) mmol/L Calcium 8.5 (8.4-10.2) mg/dL Total Bilirubin 1.5 H (0.2-1.3) mg/dL AST 93 H (14-36) U/L ALT 30 (4-34) U/L Alkaline Phosphatase 70 (38-126) U/L Creatine Kinase 1405 H* (30-135) U/L Troponin I (0.000-0.034) ng/mL Total Protein 5.9 L (6.3-8.2) g/dL Albumin 3.5 (3.5-5.0) g/dL Urine Color Yellow Urine Appearance Cloudy H (Clear) Urine pH 5.5 (5.0-8.0) Ur Specific [place] 1.022 (1.001-1.035) Urine Protein 1+ H (Negative) Urine Glucose (UA) Negative (Negative) Urine Ketones Negative (Negative) Urine Blood Moderate H (Negative) Urine Nitrite Negative (Negative) Urine Bilirubin Negative (Negative) Urine Urobilinogen 3.0 (<2.0) mg/dL Ur Leukocyte Esterase Large H (Negative) Urine RBC 11 H (0-5) /hpf Urine WBC >182 H (0-5) /hpf Urine WBC Clumps Few H (None) /hpf Ur Squamous Epith Cells 1 (0-4) /hpf Urine Bacteria Many H (None) /hpf Hyaline Casts 2 (0-2) /lpf Urine Mucus Few H (None) /hpf Urine Opiates Screen Detected H (NotDetected) Ur Oxycodone Screen Not Detected (NotDetected) Urine Methadone Screen Not Detected (NotDetected) Ur Propoxyphene Screen Not Detected (NotDetected) Ur Barbiturates Screen Not Detected (NotDetected) U Tricyclic Antidepress Not Detected (NotDetected) Ur Phencyclidine Scrn Not Detected (NotDetected) Ur Amphetamines Screen Not Detected (NotDetected) U Methamphetamines Scrn Not Detected (NotDetected) U Benzodiazepines Scrn Not Detected (NotDetected) Urine Cocaine Screen Not Detected (NotDetected) U Marijuana (THC) Screen Not Detected (NotDetected) Serum Alcohol <10 mg/dL Blood Type Blood Type Recheck Bld Type Recheck Status Antibody Screen Spec Expiration Date - EKG Data EKG Comments: EKG demonstrates significant artifact. A. fib with a rate of 73. QRS 62. QTC of 458. No acute ST segment elevations or depressions Critical Care Time Critical Care Time: Yes Critical Care Time: 40 minutes Disposition Clinical Impression: Fall, Facial trauma, Concussion without loss of consciousness, initial encounter, Elevated creatine kinase, Skin abrasion, Hypothermia Disposition: ADMITTED IP TO THIS [facility] Condition: Serious Is patient prescribed a controlled substance at d/c from ED?: No Time of Disposition: 11:54 Decision to Admit Reason: Admit from EC Decision Date: 08/31/22 Decision Time: 11:54
[2022-08-31] MEDS ORDERED: ACETAMINOPHEN IV (For NPO) 1,000 MG in EMPTY BAG 1 BAG IVPB STA (09:27)
--- NOTE | 2022-08-31 09:39 | XR ---
EXAMINATION TYPE: XR chest 1V portable DATE OF EXAM: 08/31/2022 COMPARISON: 03/11/2021 INDICATION: Trauma, fall TECHNIQUE: Single frontal view of the chest is obtained. FINDINGS: The heart size is prominent. The pulmonary vasculature is normal. The lungs are clear. No pneumothorax is evident. Displaced rib fractures. IMPRESSION: 1. Mild cardiomegaly. 2. No acute pulmonary process.
[2022-08-31 09:40] LABS: Basophils # (A) 0.1 k/uL (0-0.2); Basophils % (A) 0 %; Eosinophils % (A) 0 %; HCT 42.9 % (34.0-46.0); HGB 13.6 gm/dL (11.4-16.0); Lymphocytes # (A) 0.5 k/uL (1.0-4.8); Lymphocytes % (A) 3 %; MCH 34.3 pg (25.0-35.0); MCHC 31.7 g/dL (31.0-37.0); MCV 108.4 fL (80.0-100.0); Macrocytosis Marked; Mean Platelet Volume 7.9; Monocytes # (A) 1.1 k/uL (0-1.0); Monocytes % (A) 7 %; Neutrophils # (A) 14.2 k/uL (1.3-7.7); Neutrophils % (A) 87 %; Platelet Count 258 k/uL (150-450); RBC 3.96 m/uL (3.80-5.40); RDW 13.7 % (11.5-15.5); WBC 16.3 k/uL (3.8-10.6)
--- NOTE | 2022-08-31 09:40 | XR ---
EXAMINATION TYPE: XR pelvis AP view DATE OF EXAM: 08/31/2022 COMPARISON: 03/16/2012 HISTORY: Fall, pain TECHNIQUE: AP pelvis FINDINGS: Bilateral hip prostheses are present. No acute fractures are evident. Sacroiliac joints and symphysis pubis are intact. Bowel gas pattern appears unremarkable. IMPRESSION: 1. No acute osseous abnormalities AP pelvis
[2022-08-31 10:03] LABS: INR 0.9 (<1.2)
[2022-08-31 10:12] LABS: Partial Thromboplastin Time 21.9 sec (22.0-30.0)
[2022-08-31] MEDS ORDERED: fentaNYL (PF) 50 MCG/ML 2 ML AMP IVP STA (10:26)
[2022-08-31 10:32] LABS: ALT 30 U/L (4-34); AST 93 U/L (14-36); African American GFR (CKD) 29 (>60 ml/min/1.73 sqM); Albumin 3.5 g/dL (3.5-5.0); Alcohol <10 mg/dL; Alkaline Phosphatase 70 U/L (38-126); Anion Gap 15 mmol/L; Blood Urea Nitrogen 37 mg/dL (7-17); Calcium 8.5 mg/dL (8.4-10.2); Carbon Dioxide 18 mmol/L (22-30); Chloride 102 mmol/L (98-107); Glucose 90 mg/dL (74-99); Non-African American GFR(CKD) 25 (>60 ml/min/1.73 sqM); Potassium 5.5 mmol/L (3.5-5.1); Sodium 135 mmol/L (137-145); Total Bilirubin 1.5 mg/dL (0.2-1.3); Total Protein 5.9 g/dL (6.3-8.2)
[2022-08-31 10:42] LABS: Appearance,Urine Cloudy (Clear); Bacteria,Urine Many /hpf; Bilirubin,Urine Negative (Negative); Blood,Urine Moderate (Negative); Color,Urine Yellow; Glucose,Urine (UA) Negative (Negative); Hyaline Casts,Urine 2 /lpf (0-2); Ketones,Urine Negative (Negative); Leukocyte Esterase,Urine Large (Negative); Mucus,Urine Few /hpf; Nitrite,Urine Negative (Negative); PH, Urine 5.5 (5.0-8.0); Protein,Urine 1+ (Negative); RBC,Urine 11 /hpf (0-5); Specific Gravity,Urine 1.022 (1.001-1.035); Squamous Epithelial Cell,Urine 1 /hpf (0-4); WBC,Urine >182 /hpf (0-5)
[2022-08-31 10:45] LABS: Amphetamine Screen,Urine Not Detected (NotDetected); Barbiturate Screen,Urine Not Detected (NotDetected); Benzodiazepines Screen,Urine Not Detected (NotDetected); Cocaine Screen,Urine Not Detected (NotDetected); Methadone Screen, Urine Not Detected (NotDetected); Opiate Screen,Urine Detected (NotDetected); Oxycodone Screen, Urine Not Detected (NotDetected); Phencyclidine Screen,Urine Not Detected (NotDetected); Tricyclic Antidepressant,Urine Not Detected (NotDetected); Urn Cannabinoid Scrn Not Detected (NotDetected)
[2022-08-31 10:48] LABS: Creatine Kinase 1405 U/L (30-135)
[2022-08-31] MEDS ORDERED: cefTRIAXone IN SWFI 1,000 MG/10 ML SYRINGE IVP STA (11:10)
--- NOTE | 2022-08-31 11:15 | CT ---
EXAMINATION TYPE: CT brain edmar chan con DATE OF EXAM: 08/31/2022 COMPARISON: None HISTORY: trauma ,fall CT DLP: 1453 mGycm, Automated exposure control for dose reduction was used. CONTRAST: Patient injected with 0 mL of Isovue 300. CT of the brain is performed utilizing 3 mm thick sections through the posterior fossa and 3 mm thick sections through the remaining calvarium. Study is performed within 24 hours of arrival to the hospital. No abnormal hyperdensity is present to suggest an acute intracranial hemorrhage. 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 No significant mass effect on the adjacent brain is evident. No additional masses are evident. No acute infarcts are evident. There is mild periventricular white matter hypodensity, likely on the basis of chronic white matter ischemic changes. Small old appearing lacunar infarcts within the bila teral basal ganglion, 2 on the right one on the left. The largest of which is on the left measures 0. 6 cm. Ventricles and sulci are prominent for the patient age. Air-fluid levels are within the maxillary sinuses. Remaining paranasal sinuses and mastoid air cells are clear.May be some mild soft tissue swelling along the frontal and left temporal region. IMPRESSIONS: 1. Atrophy with chronic appearing periventricular white matter ischemic changes. 2. 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 3. No acute intracranial process radiographically apparent. Follow-up MRI can be performed as clinica lly indicated. CT cervical spine. COMPARISON: None CT of the cervical spine is performed in the axial plane at 2 mm thick sections. Reconstructed image s in the coronal, and sagittal plane are reviewed on the computer. No acute fractures are evident. Vertebral body alignment is normal. There is loss of disc height at C4-5 C5-6 C6-7. Endplate changes are present C6-7 with some vacuum di sc phenomenon present. A cyst appears to be present within the base of the odontoid. There may be con genital fusion of C5-6. Vertebral body heights are preserved. No spinal canal stenosis is evident. Uncovertebral joint hypertrophy is present with moderate to severe foraminal narrowing present throug h the cervical spine. IMPRESSIONS: 1. No acute osseous abnormality cervical spine. 2. Degenerative disc changes. Greatest C6-7.
--- NOTE | 2022-08-31 11:23 | CT ---
EXAMINATION TYPE: CT ChestAbdPelvis w con DATE OF EXAM: 08/31/2022 INDICATION: fall, trauma COMPARISON: 03/19/2012 CT DLP: 1850.2 mGycm CONTRAST: Performed without Oral Contrast and with IV Contrast, patient injected with 100 mL of Isovue 370. TECHNIQUE: Axial images at 5 mm thick sections. Reconstructed images in the coronal plane. Delayed images through the kidneys. FINDINGS: CT CHEST: There is a fluid-filled esophagus. Distal esophagus appears unremarkable. Mild cardiomegaly is present. Portion of the thyroid visualized is normal. No suspicious lung nodules or focal infiltrates are present. No pneumothorax is evident. No enlarged mediastinal or hilar adenopathy is evident. The ascending aorta diameter at the level of the main pulmonary artery is 3.7 cm. The main pulmonary artery diameter at the bifurcation is 3.[address] ABDOMEN: There is a large anterior abdominal wall hernia containing nondilated loops of small dariel l. Some colon is present more superiorly a second small bowel anterior abdominal wall hernia may be p resent anterior to the pelvis. No obstruction is identified. Liver: Normal Spleen: There is some fullness of the posterior medial portion of the spleen near the diaphragm. Unde rlying mass could be considered. Recommend ultrasound follow-up of this 2.9 cm area. No lacerations a re identified. No adjacent fluid or inflammatory changes. Pancreas: Normal Adrenal glands: The adrenal glands are normal. Gallbladder: Normal Kidneys: Kidneys have thin cortex suggesting some underlying renal atrophy No masses are evident. No hydronephrosis is present. No cysts are present. Aorta: Vascular calcification is within the aorta. Inferior vena cava: Normal. CT PELVIS: Pelvis and the lower aspect is limited due to bilateral hip prostheses causing beam harden ing artifact. Loops of bowel within the abdomen and pelvis are normal. The study is without oral contrast limit ing bowel evaluation. No suspicious obstruction is evident. Appendix: Not identified. There may be a prior appendectomy. Correlate with surgical history. No dila jonny tubular structure or inflammatory change is evident. Urinary bladder: Nondistended and nondiagnostic due to beam hardening artifact. Genitourinary structures: Uterus and ovaries are not identified. Osseous structures: No suspicious lytic or sclerotic lesions. No suspicious changes to suggest acute fractures. Sacroiliac joint degenerative changes are present. Some degenerative facet changes and dis c changes are within the lumbar spine. No displaced rib fractures are identified. There is a superior endplate compression deformity of L1. This has minimal posterior wall displacement. No AP spinal can al stenosis is present. This is an interval finding since 2011. IMPRESSIONS: 1. Superior endplate compression deformity of L1 with mild posterior wall displacement. Radiographica lly this appears to be chronic however, this is age indeterminant. Correlate with location of the pat ient's pain. 2. Anterior abdominal wall and anterior pelvic wall herniation with nonobstructed loops of bowel.
--- NOTE | 2022-08-31 11:39 | P.GSHP ---
History of Present Illness H&P Date: 08/31/22 Chief Complaint: Fall A 88-year-old female presents to the emergency department as a prior to to trauma. Apparently she was found in her garage wedged between her car and some fencing material. It sounds like she was there for approximately 10-14 hours. Patient was noted to have facial swelling. She was made a primary to trauma based on the appearance on presentation. Patient denies any loss of consciousness. Mentation for ER staff appeared appropriate. Complaining of some back pain which she says is chronic. Facial swelling actually seemed to improve while in the emergency department. History of previous asthma requiring prolonged ventilatory support and tracheostomy. CT brain and C-spine show no evidence of acute trauma. CT chest abdomen and pelvis shows chronic spinal changes and abdominal wall hernia. - Review of Systems Comment: The patient denies any acute changes in vision or hearing, no dysphagia or od ynophagia, no chest pain or shortness of breath, no dysuria or hematuria, no headache, no runny nose, no rectal bleeding or melena, no unexplained weight loss Past Medical History Past Medical History: Atrial Fibrillation, Asthma, Hypertension, Osteoarthritis (OA), Syncope Additional Past Medical History / Comment(s): fell 3 weeks after passing out, hit head, neede several stitches, see DR Terrazas [facility], sepsis 2012 & hospitalized for over a month History of Any Multi-Drug Resistant Organisms: None Reported Past Surgical History: Bowel Resection, Hysterectomy, Joint Replacement, Tonsillectomy Additional Past Surgical History / Comment(s): cardioversion, both hips replaced, bowel resection due to perforation & then septic Past Anesthesia/Blood Transfusion Reactions: Blood Transfusion Reaction Additional Past Anesthesia/Blood Transfusion Reaction / Comment(s): Patient states she has had two transfusions and had a bad reaction after one of them. Past Psychological History: No Psychological Hx Reported Smoking Status: Former smoker Past Alcohol Use History: Occasional Past Drug Use History: None Reported Medications and Allergies Home Medications Medication Instructions Recorded Confirmed Type Amiodarone [Cordarone] 50 mg PO DAILY 02/18/14 03/11/21 History Montelukast [Singulair] 10 mg PO HS 02/18/14 03/11/21 History Venlafaxine HCl [Effexor] 75 mg PO DAILY 02/18/14 03/11/21 History amLODIPine [Norvasc] 5 mg PO DAILY 02/18/14 03/11/21 History Albuterol Sulfate [Albuterol 2 puff PO RT-Q6H PRN 03/11/21 03/11/21 History Sulfate Hfa] Metoprolol Tartrate [Lopressor] 100 mg PO DAILY 03/11/21 03/11/21 History Metoprolol Tartrate [Lopressor] 25 mg PO DAILY@1700 tab 03/14/21 Rx guaiFENesin-DM 100-10MG/5ML 10 ml PO Q8H PRN 5 Days #60 ml 03/14/21 Rx [Robitussin DM] Ipratropium-Albuterol Nebulize 3 ml INHALATION RT-Q4H PRN ml 03/15/21 Rx [Duoneb 0.5 mg-3 mg/3 ml Soln] predniSONE 10 mg PO DIRECTED #40 tab 03/15/21 Rx Allergies Allergy/AdvReac Type Severity Reaction Status Date / Time No Known Allergies Allergy Verified 03/11/21 16:20 Surgical - Exam Vital Signs Pulse Resp BP Pulse Ox 54 L 18 119/87 97 08/31/22 09:10 08/31/22 09:10 08/31/22 09:10 08/31/22 09:10 Physical exam: General: Elderly white female with c-collar in place, no acute distress HEENT: Right-sided facial swelling, extraocular movements intact, trachea is midline, no laceration Abdomen: Nontender, nondistended, chronic abdominal wall hernia easily reducible Extremities: Erythema bilateral feet with superficial abrasions involving the lower extremities with a superficial skin tear involving the left long, patient evidently had traumatic injury to the nail on both great toes resulting in loss of nail, feet are somewhat cool Neuro: Alert and oriented Results - Labs 08/31/22 09:23 08/31/22 10:02 Abnormal Lab Results - Last 24 Hours (Table) 08/31/22 08/31/22 08/31/22 Range/Units 09:20 09:20 09:20 WBC (3.8-10.6) k/uL MCV (80.0-100.0) fL Neutrophils # (1.3-7.7) k/uL Lymphocytes # (1.0-4.8) k/uL Monocytes # (0-1.0) k/uL Macrocytosis APTT 21.9 L (22.0-30.0) sec Sodium (137-145) mmol/L Potassium (3.5-5.1) mmol/L Carbon Dioxide (22-30) mmol/L BUN (7-17) mg/dL Creatinine (0.52-1.04) mg/dL Plasma Lactic Acid Eddie 6.4 H* (0.7-2.0) mmol/L Total Bilirubin (0.2-1.3) mg/dL AST (14-36) U/L Creatine Kinase (30-135) U/L Troponin I 2.160 H* (0.000-0.034) ng/mL Total Protein (6.3-8.2) g/dL Urine Appearance (Clear) Urine Protein (Negative) Urine Blood (Negative) Ur Leukocyte Esterase (Negative) Urine RBC (0-5) /hpf Urine WBC (0-5) /hpf Urine WBC Clumps (None) /hpf Urine Bacteria (None) /hpf Urine Mucus (None) /hpf Urine Opiates Screen (NotDetected) 08/31/22 08/31/22 08/31/22 Range/Units 09:23 10:02 10:24 WBC 16.3 H (3.8-10.6) k/uL MCV 108.4 H (80.0-100.0) fL Neutrophils # 14.2 H (1.3-7.7) k/uL Lymphocytes # 0.5 L (1.0-4.8) k/uL Monocytes # 1.1 H (0-1.0) k/uL Macrocytosis Marked A APTT (22.0-30.0) sec Sodium 135 L (137-145) mmol/L Potassium 5.5 H (3.5-5.1) mmol/L Carbon Dioxide 18 L (22-30) mmol/L BUN 37 H (7-17) mg/dL Creatinine 1.78 H (0.52-1.04) mg/dL Plasma Lactic Acid Eddie (0.7-2.0) mmol/L Total Bilirubin 1.5 H (0.2-1.3) mg/dL AST 93 H (14-36) U/L Creatine Kinase 1405 H* (30-135) U/L Troponin I (0.000-0.034) ng/mL Total Protein 5.9 L (6.3-8.2) g/dL Urine Appearance Cloudy H (Clear) Urine Protein 1+ H (Negative) Urine Blood Moderate H (Negative) Ur Leukocyte Esterase Large H (Negative) Urine RBC 11 H (0-5) /hpf Urine WBC >182 H (0-5) /hpf Urine WBC Clumps Few H (None) /hpf Urine Bacteria Many H (None) /hpf Urine Mucus Few H (None) /hpf Urine Opiates Screen Detected H (NotDetected) Diabetes panel 08/31/22 Range/Units 10:02 Sodium 135 L (137-145) mmol/L Potassium 5.5 H (3.5-5.1) mmol/L Chloride 102 (98-107) mmol/L Carbon Dioxide 18 L (22-30) mmol/L BUN 37 H (7-17) mg/dL Creatinine 1.78 H (0.52-1.04) mg/dL Glucose 90 (74-99) mg/dL Calcium 8.5 (8.4-10.2) mg/dL AST 93 H (14-36) U/L ALT 30 (4-34) U/L Alkaline Phosphatase 70 (38-126) U/L Total Protein 5.9 L (6.3-8.2) g/dL Albumin 3.5 (3.5-5.0) g/dL Calcium panel 08/31/22 Range/Units 10:02 Calcium 8.5 (8.4-10.2) mg/dL Albumin 3.5 (3.5-5.0) g/dL Pituitary panel 08/31/22 Range/Units 10:02 Sodium 135 L (137-145) mmol/L Potassium 5.5 H (3.5-5.1) mmol/L Chloride 102 (98-107) mmol/L Carbon Dioxide 18 L (22-30) mmol/L BUN 37 H (7-17) mg/dL Creatinine 1.78 H (0.52-1.04) mg/dL Glucose 90 (74-99) mg/dL Calcium 8.5 (8.4-10.2) mg/dL Adrenal panel 08/31/22 Range/Units 10:02 Sodium 135 L (137-145) mmol/L Potassium 5.5 H (3.5-5.1) mmol/L Chloride 102 (98-107) mmol/L Carbon Dioxide 18 L (22-30) mmol/L BUN 37 H (7-17) mg/dL Creatinine 1.78 H (0.52-1.04) mg/dL Glucose 90 (74-99) mg/dL Calcium 8.5 (8.4-10.2) mg/dL Total Bilirubin 1.5 H (0.2-1.3) mg/dL AST 93 H (14-36) U/L ALT 30 (4-34) U/L Alkaline Phosphatase 70 (38-126) U/L Total Protein 5.9 L (6.3-8.2) g/dL Albumin 3.5 (3.5-5.0) g/dL Assessment and Plan (1) Ground-level fall Narrative/Plan: 87-year-old female with ground-level fall. Patient with significant downtime. Labs noted. We'll consult cardiology, internal medicine, vascular surgery. Monitor facial swelling. CODE STATUS still being discussed with the family. Current Visit: Yes Status: Acute Code(s): W18.30XA - FALL ON SAME LEVEL, UNSPECIFIED, INITIAL ENCOUNTER SNOMED Code(s): 74484752
[2022-08-31] MEDS ORDERED: NALOXONE 0.4 MG/ML 1 ML VIAL IV PRN (11:54)
--- NOTE | 2022-08-31 12:10 | XR ---
EXAMINATION TYPE: XR knee limited LT DATE OF EXAM: 08/31/2022 COMPARISON: None HISTORY: Fall, laceration TECHNIQUE: Left knee is examined in 2 projections. FINDINGS: There is narrowing of the patellofemoral joint space. No significant joint effusion is evid ent. There is narrowing of the lateral compartment joint space. Mild narrowing of medial compartment joint space is present. The medial femoral condylar spurring is noted. No radiopaque foreign bodies e vident. No acute fractures are evident. Follow up exams can be performed 7-10 days from acute trauma for cont inued pain. IMPRESSION: 1. No acute osseous abnormality left knee.
[2022-08-31] MEDS: SODIUM CHLORIDE 0.9% 1,000 ML IV SCH ×2 (12:15→21:46)
[2022-08-31] MEDS ORDERED: IPRATROPIUM-ALBUTEROL 3 ML NEB INHALATION STA (12:48)
[2022-08-31] MEDS: MORPHINE SULFATE 4 MG/ML SYRINGE IV PRN ×3 (13:24→21:45)
[2022-08-31] MEDS: ACETAMINOPHEN TAB 325 MG TAB PO PRN (15:36)
[2022-08-31] MEDS: AMIODARONE 100 MG TAB PO SCH (17:55)
[2022-08-31] MEDS: METOPROLOL TARTRATE 50 MG TAB PO SCH (17:55)
[2022-08-31] MEDS: PANTOPRAZOLE 40 MG/10 ML VIAL IVP SCH (17:56)
--- NOTE | 2022-08-31 18:09 | HP ---
HISTORY AND PHYSICAL CHIEF COMPLAINT: Unresponsive, hypothermia, and rhabdomyolysis. HISTORY OF PRESENT ILLNESS: This is an 87-year-old woman with a past medical history of multiple medical problems including atrial fibrillation and asthma, who was apparently taking the grocery from the car to the house, and the patient fell down. The patient was unable to move. The neighbors found her after overnight exposure to cold. The patient has extensive bruises and evidence of rhabdomyolysis, had elevated troponin of 1.9 and possible UTI also. There is no history of any fever, rigors, or chills at this time. The patient also had L1 compression fracture. PAST MEDICAL HISTORY: Reviewed includes atrial fibrillation and asthma. Rest of the history and rest of the chart are also reviewed. HOME MEDICATIONS: Reviewed include Norvasc. Doses and rest of the medications are noted. ALLERGIES: None. FAMILY HISTORY: No history of heart disease or strokes in the family. SOCIAL HISTORY: Previous history of smoking. REVIEW OF SYSTEMS: Fourteen-point review is negative except as mentioned earlier. PHYSICAL EXAMINATION: VITAL SIGNS: Pulse 54, blood pressure 111/97, respirations 18, temperature 91.8. HEENT: Conjunctivae are normal. Significant facial swelling and bruises present. CARDIOVASCULAR: S1 and S2 muffled. RESPIRATORY: Few scattered rhonchi. ABDOMEN: Soft, obese, and nontender. LEGS: No edema. No swelling. NEUROLOGIC: Diffusely weak. LABORATORY DATA: Reviewed include WBC 16.3. Sodium 130, potassium 5.5, creatinine is 1.78. IMAGING STUDIES: CT showed old cortical infarct in basal ganglia. ASSESSMENT: 1. Acute rhabdomyolysis and acute renal failure. 2. Acute urinary tract infection, present on admission. 3. L1 compression fracture. 4. Elevated plasma lactic acid. 5. Troponin 2.160, possible acute ari-EA-wrjftsj-elevation myocardial infarction. 6. Atrial fibrillation. 7. History of asthma. 8. Hypertension. 9. Old cortical infarct, basal ganglia. RECOMMENDATIONS: In this 87-year-old woman, who presented with multiple complex medical issues, we will monitor the patient closely, continue with current medications and broad-spectrum IV antibiotics. Infectious disease evaluation. Home, social and human services assistant evaluation. L1 compression fracture, we will continue to monitor and also consult Orthopedic Surgery as well. Overall prognosis is guarded because of multiple complex medical issues, and as mentioned earlier, we will continue to monitor and discuss with family at length, and further recommendations to follow. MMODL / IJN: [id number] /
[2022-08-31] MEDS: HYDROcodone/APAP 5-325MG 1 EACH TAB PO SCH (20:15)
--- NOTE | 2022-08-31 20:37 | P.CNOR ---
History of Present Illness - [facility] Consult date: 08/31/22 Consult reason: low back pain History of present illness: This is an 87-year-old female who presented to the emergency department this morning via EMS after being found on her garage floor by a neighbor early this morning. The patient apparently went into her garage last evening and fell. She was unable to get herself up from the garage floor. Her garage door was open. She laid on the garage floor for approximately 12-14 hours, unable to get up. She was found this morning by a neighbor. She reportedly was prone most of this extended period of time. Family states that she struggled quite a bit to get herself up to the point where she avulsed some of her toenails. On arrival to the emergency department she had significant swelling and ecchymosis to her face. She was having some difficulty with respirations. She was deemed a priority 2 trauma on arrival. Her temperature was 91F initially. The patient was found to be in rhabdomyolysis and troponins were slightly elevated. She is complaining of some mild back pain. She states that she does have history of chronic back pain and has history of a compression deformity to her lumbar spine in the past. She states that she takes Tylenol with codeine twice daily for her chronic pain. It is difficult for her to say at this time whether her back pain is worse than normal. An L1 compression deformity was found on CT scan and we were consulted for orthopedic evaluation. Past Medical History Past Medical History: Atrial Fibrillation, Asthma, Hypertension, Osteoarthritis (OA), Syncope Additional Past Medical History / Comment(s): fell 3 weeks after passing out, hit head, neede several stitches, see DR Terrazas [facility], sepsis 2011 & hospitalized for over a month History of Any Multi-Drug Resistant Organisms: None Reported Past Surgical History: Bowel Resection, Hysterectomy, Joint Replacement, Tonsillectomy Additional Past Surgical History / Comment(s): cardioversion, both hips replaced , bowel resection due to perforation & then septic Past Anesthesia/Blood Transfusion Reactions: Blood Transfusion Reaction Additional Past Anesthesia/Blood Transfusion Reaction / Comm: Patient states she has had two transfusions and had a bad reaction after one of them. Past Psychological History: No Psychological Hx Reported Smoking Status: Former smoker Past Alcohol Use History: Occasional Past Drug Use History: None Reported Medications and Allergies Home Medications Medication Instructions Recorded Confirmed Type Amiodarone [Cordarone] 50 mg PO DAILY 02/18/14 08/31/22 History Montelukast [Singulair] 10 mg PO DAILY 02/18/14 08/31/22 History amLODIPine [Norvasc] 5 mg PO DAILY 02/18/14 08/31/22 History Albuterol Sulfate [Albuterol 2 puff INHALATION RT-Q6H PRN 03/11/21 08/31/22 Hist ory Sulfate Hfa] Metoprolol Tartrate [Lopressor] 100 mg PO BID 03/11/21 08/31/22 History Aspirin EC [Ecotrin Low Dose] 81 mg PO DAILY 08/31/22 08/31/22 History HYDROcodone/APAP 5-325MG [[place] 1 tab PO Q8H 08/31/22 08/31/22 History 5-325] Venlafaxine HCl ER [Effexor Xr] 75 mg PO DAILY 08/31/22 08/31/22 History Allergies Allergy/AdvReac Type Severity Reaction Status Date / Time No Known Allergies Allergy Verified 08/31/22 12:37 Physical Examination This is a pleasant 87-year-old female in no acute distress. She is alert and oriented at this time. Family is present at bedside. Exam of the head and neck reveals swelling to her face, particularly the right side along with some ecchymosis. She is able to speak and does not seem to be having any respiratory distress. The patient is able to rotate, flex and extend her cervical spine without pain or difficulty. She is nontender over her cervical spinous processes or paraspinal musculature. It is difficult to assess her thoracic or lumbar spine at this time. She is unable to sit up or turn on the gurney. She is covered with multiple layers of warming blankets and a bear hugger. Exam of her upper extremities reveals multiple small contusions. She is able to move her elbows, wrists and fingers. There is no obvious deformity noted to the upper extremities. Exam of the lower extremities reveals multiple areas of bruising and soft tissue swelling. Her left knee has a large pressure sore to the anterior aspect of the knee. There is ecchymosis and mild erythema surrounding the area. The patient is able to flex each knee and hip actively without difficulty. There is no hip irritability with log roll. Bilateral feet have multiple bruises and abrasions. There are nail avulsions noted. She is able to move her feet and ankles and her toes. Pedal pulses are +1/4 bilaterally. Neurovascular status to the lower extremities is grossly inta ct. Results CT scan of the chest, abdomen and pelvis reveals an L1 compression deformity, age indeterminant. There is 2-3 mm of retropulsion of the posterior vertebral body. No other bony abnormalities noted on the CT scan. CT scan of the cervical spine reveals multilevel degenerative disc disease and arthritic changes. Significant disc disease with near autofusion at C5-6. Significant disc disease at C6-7.There is slight anterolisthesis of C3 on C4. No evidence of acute fracture. Left knee x-ray reveals no acute bony abnormality or fracture. Degenerative ch anges noted. - Labs Labs: Abnormal Lab Results - Last 24 Hours (Table) 08/31/22 08/31/22 08/31/22 Range/Units 09:20 09:20 09:20 WBC (3.8-10.6) k/uL MCV (80.0-100.0) fL Neutrophils # (1.3-7.7) k/uL Lymphocytes # (1.0-4.8) k/uL Monocytes # (0-1.0) k/uL Macrocytosis APTT 21.9 L (22.0-30.0) sec Sodium (137-145) mmol/L Potassium (3.5-5.1) mmol/L Carbon Dioxide (22-30) mmol/L BUN (7-17) mg/dL Creatinine (0.52-1.04) mg/dL Plasma Lactic Acid Eddie 6.4 H* (0.7-2.0) mmol/L Total Bilirubin (0.2-1.3) mg/dL AST (14-36) U/L Creatine Kinase (30-135) U/L Troponin I 2.160 H* (0.000-0.034) ng/mL Total Protein (6.3-8.2) g/dL Urine Appearance (Clear) Urine Protein (Negative) Urine Blood (Negative) Ur Leukocyte Esterase (Negative) Urine RBC (0-5) /hpf Urine WBC (0-5) /hpf Urine WBC Clumps (None) /hpf Urine Bacteria (None) /hpf Urine Mucus (None) /hpf Urine Opiates Screen (NotDetected) 08/31/22 08/31/22 08/31/22 Range/Units 09:23 10:02 10:24 WBC 16.3 H (3.8-10.6) k/uL MCV 108.4 H (80.0-100.0) fL Neutrophils # 14.2 H (1.3-7.7) k/uL Lymphocytes # 0.5 L (1.0-4.8) k/uL Monocytes # 1.1 H (0-1.0) k/uL Macrocytosis Marked A APTT (22.0-30.0) sec Sodium 135 L (137-145) mmol/L Potassium 5.5 H (3.5-5.1) mmol/L Carbon Dioxide 18 L (22-30) mmol/L BUN 37 H (7-17) mg/dL Creatinine 1.78 H (0.52-1.04) mg/dL Plasma Lactic Acid Eddie (0.7-2.0) mmol/L Total Bilirubin 1.5 H (0.2-1.3) mg/dL AST 93 H (14-36) U/L Creatine Kinase 1405 H* (30-135) U/L Troponin I (0.000-0.034) ng/mL Total Protein 5.9 L (6.3-8.2) g/dL Urine Appearance Cloudy H (Clear) Urine Protein 1+ H (Negative) Urine Blood Moderate H (Negative) Ur Leukocyte Esterase Large H (Negative) Urine RBC 11 H (0-5) /hpf Urine WBC >182 H (0-5) /hpf Urine WBC Clumps Few H (None) /hpf Urine Bacteria Many H (None) /hpf Urine Mucus Few H (None) /hpf Urine Opiates Screen Detected H (NotDetected) 08/31/22 08/31/22 08/31/22 Range/Units 12:45 12:45 15:56 WBC (3.8-10.6) k/uL MCV (80.0-100.0) fL Neutrophils # (1.3-7.7) k/uL Lymphocytes # (1.0-4.8) k/uL Monocytes # (0-1.0) k/uL Macrocytosis APTT (22.0-30.0) sec Sodium (137-145) mmol/L Potassium (3.5-5.1) mmol/L Carbon Dioxide (22-30) mmol/L BUN (7-17) mg/dL Creatinine (0.52-1.04) mg/dL Plasma Lactic Acid Eddie 2.3 H* (0.7-2.0) mmol/L Total Bilirubin (0.2-1.3) mg/dL AST (14-36) U/L Creatine Kinase (30-135) U/L Troponin I 1.960 H* 2.350 H* (0.000-0.034) ng/mL Total Protein (6.3-8.2) g/dL Urine Appearance (Clear) Urine Protein (Negative) Urine Blood (Negative) Ur Leukocyte Esterase (Negative) Urine RBC (0-5) /hpf Urine WBC (0-5) /hpf Urine WBC Clumps (None) /hpf Urine Bacteria (None) /hpf Urine Mucus (None) /hpf Urine Opiates Screen (NotDetected) Microbiology - Last 24 Hours (Table) 08/31/22 10:24 Urine Culture - Preliminary Urine,Voided H & H 08/31/22 Range/Units 09:23 Hgb 13.6 (11.4-16.0) gm/dL Hct 42.9 (34.0-46.0) % Coagulation 08/31/22 Range/Units 09:20 INR 0.9 (<1.2) Result Diagrams: 08/31/22 09:23 08/31/22 10:02 Assessment and Plan (1) Compression fracture of L1 lumbar vertebra Current Visit: Yes Status: Acute Code(s): S32.010A - WEDGE COMPRESSION FRACTURE OF FIRST LUMBAR VERTEBRA, INIT SNOMED Code(s): 491150505 (2) Elevated creatine kinase Current Visit: Yes Status: Acute Code(s): R74.8 - ABNORMAL LEVELS OF OTHER SERUM ENZYMES SNOMED Code(s): 481356358 (3) Facial trauma Current Visit: Yes Status: Acute Code(s): S09.93XA - UNSPECIFIED INJURY OF FACE, INITIAL ENCOUNTER SNOMED Code(s): 762474269 (4) Fall Current Visit: Yes Status: Acute Code(s): W19.XXXA - UNSPECIFIED FALL, INITIAL ENCOUNTER SNOMED Code(s): 8050242 (5) Hypothermia Current Visit: Yes Status: Acute Code(s): T68.XXXA - HYPOTHERMIA, INITIAL ENCOUNTER SNOMED Code(s): 039074441 (6) Skin abrasion Current Visit: Yes Status: Acute Code(s): T14.8XXA - OTHER INJURY OF UNSPEC IFIED BODY REGION, INITIAL ENCOUNTER SNOMED Code(s): 189312208 Plan: The clinical and x-ray findings are discussed with the patient and her family. It is discussed that I am unable to get a complete and thorough exam of the lumbar spine at this time. CT images are reviewed with Dr. Tierney who agrees that the findings may be chronic. However, she may have an acute on chronic fracture. She will be bed rest until tomorrow. I will reevaluate in the morning. If there is suspicion that there is some acuity to the fracture we will recommend a lumbar corset. I have recommended that infectious disease be consulted for her multiple wounds and pressure sores from being prone for an extended period of time on concrete. We will continue to follow.
--- NOTE | 2022-08-31 20:52 | P.CONS ---
History of Present Illness - Reason for Consult Consult date: 08/31/22 Open wound her lower extremity Requesting physician: Deepali Fernandez - Chief Complaint Fall and found on the ground x 1 day - History of Present Illness Patient is a 87-year female with a past medical history significant for atrial fibrillation hypertension asthma osteoarthritis syncope patient was brought into the ER after apparently patient was noticed to be in her garage wedged between her car and some fencing material apparently the patient was on the floor for about 10 to 14 hours and did have some facial swelling with laceration to the knee area patient denies loss of consciousness ER brought the patient to the hospital on arrival to the the patient was hypothermic subsequently low-grade fever of 99.3 F patient did have a white count of 16.3 with a left shift did have elevated BUN and creatinine and lactic acid was mildly elevated urine was positive urine toxin was positive for opiates patient did have a chest x-ray no acute pulmonary process CT of the chest abdominal pelvis which did shows superior endplate compression deformity L1 anterior abdominal anterior pelvic wall herniation with nonobstructed loops of bowel patient did have an x-ray with evidence of any fracture patient was started on Rocephin infectious disease was consulted for further management of antibiotic therapy local wound care to the area patient did have a bruising to the left knee and left foot toes but no drainage has been complaining of pain to be more of a dull aching to sharp 5-6 out of 10 and no radiation Review of Systems Positive point has been mentioned in the HPI rest of the systems are negative Past Medical History Past Medical History: Atrial Fibrillation, Asthma, Hypertension, Osteoarthritis (OA), Syncope Additional Past Medical History / Comment(s): fell 3 weeks after passing out, hit head, neede several stitches, see DR [facility], sepsis 2011 & hospitalized for over a month History of Any Multi-Drug Resistant Organisms: None Reported Past Surgical History: Bowel Resection, Hysterectomy, Joint Replacement, Tonsillectomy Additional Past Surgical History / Comment(s): cardioversion, both hips replaced, bowel resection due to perforation & then septic Past Anesthesia/Blood Transfusion Reactions: Blood Transfusion Reaction Additional Past Anesthesia/Blood Transfusion Reaction / Comm: Patient states she has had two transfusions and had a bad reaction after one of them. Past Psychological History: No Psychological Hx Reported Smoking Status: Former smoker Past Alcohol Use History: Occasional Past Drug Use History: None Reported Medications and Allergies Home Medications Medication Instructions Recorded Confirmed Type Amiodarone [Cordarone] 50 mg PO DAILY 02/18/14 08/31/22 History Montelukast [Singulair] 10 mg PO DAILY 02/18/14 08/31/22 History amLODIPine [Norvasc] 5 mg PO DAILY 02/18/14 08/31/22 History Albuterol Sulfate [Albuterol 2 puff INHALATION RT-Q6H PRN 03/11/21 08/31/22 History Sulfate Hfa] Metoprolol Tartrate [Lopressor] 100 mg PO BID 03/11/21 08/31/22 History Aspirin EC [Ecotrin Low Dose] 81 mg PO DAILY 08/31/22 08/31/22 History Venlafaxine HCl ER [Effexor XR] 75 mg PO DAILY 08/31/22 08/31/22 History HYDROcodone/APAP 5-325MG [Rosebud 1 tab PO Q8H #9 tab 09/04/22 Rx 5-325] cefUROXime axetiL [Cefuroxime] 500 mg PO BID #10 tab 09/04/22 Rx Allergies Allergy/AdvReac Type Severity Reaction Status Date / Time No Known Allergies Allergy Verified 08/31/22 12:37 Physical Exam Vitals: Vital Signs Temp Pulse Resp BP Pulse Ox 08/31/22 13:23 100 08/31/22 13:13 90 08/31/22 09:10 91.2 F L 54 L 18 119/87 97 Intake and Output 08/30/22 08/31/22 08/31/22 22:59 06:59 14:59 Other: Weight 92.533 kg GENERAL DESCRIPTION: Elderly female lying in bed, no distress. No tachypnea or accessory muscle of respiration use. HEENT: Shows Pallor , no scleral icterus. Oral mucous membrane is dry. No pharyngeal erythema or thrush NECK: Trachea central, no thyromegaly. LUNGS: Unlabored breathing. Clear to auscultation anteriorly. No wheeze or crackle. HEART: S1, S2, regular rate and rhythm. No loud murmur ABDOMEN: Soft, no tenderness , guarding or rigidity, no organomegaly EXTREMITIES: Patient did have a laceration to the left knee area and the left foot toes from scratching no significant redness or drainage SKIN: No rash, no masses palpable. NEUROLOGICAL: The patient is awake, alert, oriented x3, mood and affect normal. Results CBC & Chem 7: 09/02/22 06:56 09/04/22 11:10 Labs: Abnormal Lab Results - Last 24 Hours (Table) 08/31/22 08/31/22 08/31/22 Range/Units 09:20 09:20 09:20 WBC (3.8-10.6) k/uL MCV (80.0-100.0) fL Neutrophils # (1.3-7.7) k/uL Lymphocytes # (1.0-4.8) k/uL Monocytes # (0-1.0) k/uL Macrocytosis APTT 21.9 L (22.0-30.0) sec Sodium (137-145) mmol/L Potassium (3.5-5.1) mmol/L Carbon Dioxide (22-30) mmol/L BUN (7-17) mg/dL Creatinine (0.52-1.04) mg/dL Plasma Lactic Acid Eddie 6.4 H* (0.7-2.0) mmol/L Total Bilirubin (0.2-1.3) mg/dL AST (14-36) U/L Creatine Kinase (30-135) U/L Troponin I 2.160 H* (0.000-0.034) ng/mL Total Protein (6.3-8.2) g/dL Urine Appearance (Clear) Urine Protein (Negative) Urine Blood (Negative) Ur Leukocyte Esterase (Negative) Urine RBC (0-5) /hpf Urine WBC (0-5) /hpf Urine WBC Clumps (None) /hpf Urine Bacteria (None) /hpf Urine Mucus (None) /hpf Urine Opiates Screen (NotDetected) 08/31/22 08/31/22 08/31/22 Range/Units 09:23 10:02 10:24 WBC 16.3 H (3.8-10.6) k/uL MCV 108.4 H (80.0-100.0) fL Neutrophils # 14.2 H (1.3-7.7) k/uL Lymphocytes # 0.5 L (1.0-4.8) k/uL Monocytes # 1.1 H (0-1.0) k/uL Macrocytosis Marked A APTT (22.0-30.0) sec Sodium 135 L (137-145) mmol/L Potassium 5.5 H (3.5-5.1) mmol/L Carbon Dioxide 18 L (22-30) mmol/L BUN 37 H (7-17) mg/dL Creatinine 1.78 H (0.52-1.04) mg/dL Plasma Lactic Acid Eddie (0.7-2.0) mmol/L Total Bilirubin 1.5 H (0.2-1.3) mg/dL AST 93 H (14-36) U/L Creatine Kinase 1405 H* (30-135) U/L Troponin I (0.000-0.034) ng/mL Total Protein 5.9 L (6.3-8.2) g/dL Urine Appearance Cloudy H (Clear) Urine Protein 1+ H (Negative) Urine Blood Moderate H (Negative) Ur Leukocyte Esterase Large H (Negative) Urine RBC 11 H (0-5) /hpf Urine WBC >182 H (0-5) /hpf Urine WBC Clumps Few H (None) /hpf Urine Bacteria Many H (None) /hpf Urine Mucus Few H (None) /hpf Urine Opiates Screen Detected H (NotDetected) 08/31/22 08/31/22 Range/Units 12:45 12:45 WBC (3.8-10.6) k/uL MCV (80.0-100.0) fL Neutrophils # (1.3-7.7) k/uL Lymphocytes # (1.0-4.8) k/uL Monocytes # (0-1.0) k/uL Macrocytosis APTT (22.0-30.0) sec Sodium (137-145) mmol/L Potassium (3.5-5.1) mmol/L Carbon Dioxide (22-30) mmol/L BUN (7-17) mg/dL Creatinine (0.52-1.04) mg/dL Plasma Lactic Acid Eddie 2.3 H* (0.7-2.0) mmol/L Total Bilirubin (0.2-1.3) mg/dL AST (14-36) U/L Creatine Kinase (30-135) U/L Troponin I 1.960 H* (0.000-0.034) ng/mL Total Protein (6.3-8.2) g/dL Urine Appearance (Clear) Urine Protein (Negative) Urine Blood (Negative) Ur Leukocyte Esterase (Negative) Urine RBC (0-5) /hpf Urine WBC (0-5) /hpf Urine WBC Clumps (None) /hpf Urine Bacteria (None) /hpf Urine Mucus (None) /hpf Urine Opiates Screen (NotDetected) Assessment and Plan (1) Skin abrasion Status: Acute Code(s): T14.8XXA - OTHER INJURY OF UNSPECIFIED BODY REGION, INITIAL ENCOUNTER SNOMED Code(s): 175694965 (2) UTI (urinary tract infection) Status: Acute Code(s): N39.0 - URINARY TRACT INFECTION, SITE NOT SPECIFIED SNOMED Code(s): 68211375 Plan: 1patient presented to hospital with fall patient did have a laceration to the left knee and left foot toes area some swelling no drainage recommend local wound care with dry protective dressing. 2positive UA has some urinary symptoms concerning for UTI possible responsible for the fall and weakness. 3Rocephin 1 g daily to continue while waiting for the culture to finalize We will follow on clinical condition and cultures to further adjust medication if needed Thank you for this consultation we will follow the patient along with you Time with Patient: Greater than 30
[2022-09-01] MEDS: HYDROcodone/APAP 5-325MG 1 EACH TAB PO SCH ×3 (02:09→16:27)
[2022-09-01] MEDS: MORPHINE SULFATE 4 MG/ML SYRINGE IV PRN ×2 (05:28→12:37)
[2022-09-01] MEDS: SODIUM CHLORIDE 0.9% 1,000 ML IV SCH ×4 (05:28→23:52)
[2022-09-01 06:54] LABS: Basophils % (A) 0 %; Eosinophils % (A) 0 %; HCT 35.6 % (34.0-46.0); HGB 11.5 gm/dL (11.4-16.0); Lymphocytes # (A) 0.4 k/uL (1.0-4.8); Lymphocytes % (A) 6 %; MCH 34.6 pg (25.0-35.0); MCHC 32.4 g/dL (31.0-37.0); MCV 106.7 fL (80.0-100.0); Macrocytosis Moderate; Mean Platelet Volume 8.3; Monocytes # (A) 0.5 k/uL (0-1.0); Monocytes % (A) 7 %; Neutrophils # (A) 6.3 k/uL (1.3-7.7); Neutrophils % (A) 84 %; Platelet Count 177 k/uL (150-450); RBC 3.34 m/uL (3.80-5.40); RDW 13.9 % (11.5-15.5); WBC 7.5 k/uL (3.8-10.6)
[2022-09-01 07:00] LABS: Albumin 3.1 g/dL (3.5-5.0); Calcium 7.9 mg/dL (8.4-10.2); Potassium 4.8 mmol/L (3.5-5.1); Total Bilirubin 0.7 mg/dL (0.2-1.3); Total Protein 5.5 g/dL (6.3-8.2)
--- NOTE | 2022-09-01 07:31 | P.CRDCN ---
History of Present Illness Consult date: 09/01/22 Chief complaint: Status post falling History of present illness: The patient is a pleasant 87-year-old was known to or service from before with a past medical history significant for permanent atrial fibrillation currently she is on amiodarone as well as beta marilyn and she is not on any anticoagulation because of history of falling and bleeding as well as hypertension and dyslipidemia. We consulted to see the patient because of elevated troponin. The patient was in her usual state of health where she was trying to get the grocery from the trunk of her car when suddenly she fell. She does not recall losing her consciousness. She does not recall feeling dizzy or lightheaded or any feeling of heart racing or fluttering or any presyncope or syncope. Unfortunately the patient was down on the floor unable to get up for several hours. As a matter of fact she was crawling to reach for help. And for that reason she developed severe bilateral lower extremities bruises. She was brought to the hospital where she underwent a workup including EKG which was technically very difficult with extreme underlying artifact. She is known to have atrial fibrillation treated with rate control. Beside that she underwent troponin which came in to elevated but beside that her CK was elevated and she was diagnosed with rhabdomyolysis. Also she underwent further investigation including computed tomography scan which showed fractured L1. And also she underwent computed tomography scan of the abdomen which revealed abdominal wall hematoma. The trauma service was consulted to see the patient. Beside that infectious disease was consulted to see the patient. The patient currently does not report any symptoms of chest pain or chest discomfort and no shortness of breath and no dizziness or lightheadedness and no feeling of heart racing or fluttering. The rest of her blood work came in to be unremarkable beside elevated creatinine which is likely related to acute renal failure secondary to rhabdomyolysis. The examination is remarkable for stable vital signs. Also on exam she has irregular rhythm was diminished breathing sounds bilaterally and she has soft nontender abdomen with bilateral lower extremity wrapped secondary to bilateral lower extremities bruises. Assessment Rhabdomyolysis Status post fall with no loss of consciousness Permanent atrial fibrillation with controlled heart rate Evidence of myocardial injury was no evidence of ischemia at this point. No evidence of ischemia clinically. This is likely related to rhabdomyolysis and renal failure Acute renal failure Plan The elevated troponin is likely secondary to the renal failure related to rhabdomyolysis The patient did not have any chest pain or chest discomfort. Clinically she is stable. We'll obtain an echo for further risk stratification Add aspirin to the current medical regimen Continue the current dose of beta marilyn and amiodarone She is not a candidate for anticoagulation because of the falling and bleeding and this is an example Follow-up with the patient Past Medical History Past Medical History: Atrial Fibrillation, Asthma, Hypertension, Osteoarthritis (OA), Syncope Additional Past Medical History / Comment(s): fell 3 weeks after passing out, hit head, neede several stitches, see DR [facility], sepsis 2011 & hospitalized for over a month History of Any Multi-Drug Resistant Organisms: None Reported Past Surgical History: Bowel Resection, Hysterectomy, Joint Replacement, Tonsillectomy Additional Past Surgical History / Comment(s): cardioversion, both hips replaced, bowel resection due to perforation & then septic Past Anesthesia/Blood Transfusion Reactions: Blood Transfusion Reaction Additional Past Anesthesia/Blood Transfusion Reaction / Comment(s): Patient states she has had two transfusions and had a bad reaction after one of them. Past Psychological History: No Psychological Hx Reported Smoking Status: Former smoker Past Alcohol Use History: Occasional Past Drug Use History: None Reported Medications and Allergies Home Medications Medication Instructions Recorded Confirmed Type Amiodarone [Cordarone] 50 mg PO DAILY 02/18/14 08/31/22 History Montelukast [Singulair] 10 mg PO DAILY 02/18/14 08/31/22 History amLODIPine [Norvasc] 5 mg PO DAILY 02/18/14 08/31/22 History Albuterol Sulfate [Albuterol 2 puff INHALATION RT-Q6H PRN 03/11/21 08/31/22 History Sulfate Hfa] Metoprolol Tartrate [Lopressor] 100 mg PO BID 03/11/21 08/31/22 History Aspirin EC [Ecotrin Low Dose] 81 mg PO DAILY 08/31/22 08/31/22 History HYDROcodone/APAP 5-325MG [[place]acy 1 tab PO Q8H 08/31/22 08/31/22 History 5-325] Venlafaxine HCl ER [Effexor Xr] 75 mg PO DAILY 08/31/22 08/31/22 History Allergies Allergy/AdvReac Type Severity Reaction Status Date / Time No Known Allergies Allergy Verified 08/31/22 12:37 Physical Exam Vitals: Vital Signs Temp Pulse Pulse Resp BP BP Pulse Ox 09/01/22 04:00 98 F 76 18 103/64 97 09/01/22 02:00 78 18 09/01/22 00:00 97.3 F L 78 18 114/74 98 08/31/22 20:00 97.5 F L 90 18 122/67 93 L 08/31/22 15:33 99.5 F 88 16 146/76 92 L 08/31/22 15:00 99.5 F 79 18 121/67 93 L 08/31/22 14:00 99.3 F 93 18 111/88 92 L 08/31/22 13:30 99.1 F 95 18 111/71 95 08/31/22 13:23 100 08/31/22 13:13 90 08/31/22 13:00 98.8 F 86 18 114/74 96 08/31/22 12:30 97.9 F 86 18 106/74 96 08/31/22 09:10 91.2 F L 54 L 18 119/87 97 Intake and Output 08/31/22 09/01/22 09/01/22 22:59 06:59 14:59 Intake Total 10 20 Output Total 400 275 Balance -390 -255 Intake: IV 10 20 Invasive Line 1 10 10 Invasive Line 2 10 Output: Urine 400 275 Other: Voiding Method Indwelling Catheter Indwelling Catheter # Bowel Movements 1 Results 09/01/22 06:12 09/01/22 06:12 Cardiac Enzymes 08/31/22 08/31/22 08/31/22 Range/Units 09:20 10:02 12:45 AST 93 H (14-36) U/L Troponin I 2.160 H* 1.960 H* (0.000-0.034) ng/mL 08/31/22 09/01/22 Range/Units 15:56 06:12 AST 157 H (14-36) U/L Troponin I 2.350 H* (0.000-0.034) ng/mL Coagulation 08/31/22 Range/Units 09:20 PT 10.0 (9.0-12.0) sec APTT 21.9 L (22.0-30.0) sec CBC 08/31/22 09/01/22 Range/Units 09:23 06:12 WBC 16.3 H 7.5 (3.8-10.6) k/uL RBC 3.96 3.34 L (3.80-5.40) m/uL Hgb 13.6 11.5 (11.4-16.0) gm/dL Hct 42.9 35.6 (34.0-46.0) % Plt Count 258 177 (150-450) k/uL Comprehensive Metabolic Panel 08/31/22 09/01/22 Range/Units 10:02 06:12 Sodium 135 L 140 (137-145) mmol/L Potassium 5.5 H 4.8 (3.5-5.1) mmol/L Chloride 102 111 H (98-107) mmol/L Carbon Dioxide 18 L 19 L (22-30) mmol/L BUN 37 H 50 H (7-17) mg/dL Creatinine 1.78 H 1.55 H (0.52-1.04) mg/dL Glucose 90 93 (74-99) mg/dL Calcium 8.5 7.9 L (8.4-10.2) mg/dL AST 93 H 157 H (14-36) U/L ALT 30 40 H (4-34) U/L Alkaline Phosphatase 70 60 (38-126) U/L Total Protein 5.9 L 5.5 L (6.3-8.2) g/dL Albumin 3.5 3.1 L (3.5-5.0) g/dL Current Medications Generic Name Dose Route Start Last Admin Trade Name Freq PRN Reason Stop Dose Admin Acetaminophen 650 mg 08/31/22 11:54 08/31/22 15:36 Acetaminophen Tab 325 Mg Tab PO 650 mg Q6HR PRN Administration Mild Pain or Fever > 100.5 Hydrocodone Bitart/Acetaminophen 1 each 08/31/22 17:15 09/01/22 02:09 Hydrocodone/Apap 5-325mg 1 Each Tab PO 1 each Q8H EMMA Administration Albuterol Sulfate 2.5 mg 08/31/22 17:05 Albuterol Nebulized 2.5 Mg/3 Ml INHALATION RT-Q6H PRN Shortness Of Breath Amiodarone HCl 50 mg 08/31/22 17:15 08/31/22 17:55 Amiodarone 100 Mg Tab PO 50 mg DAILY EMMA Administration Sodium Chloride 1,000 mls @ 130 mls/hr 08/31/22 11:15 09/01/22 05:28 Saline 0.9% IV 130 mls/hr .Q7H42M EMMA Administration Ceftriaxone Sodium 1 gm/ 50 mls @ 100 mls/hr 09/01/22 09:00 Sodium Chloride IVPB Q24HR EMMA Protocol Metoprolol Tartrate 100 mg 08/31/22 21:00 08/31/22 17:55 Metoprolol Tartrate 50 Mg Tab PO 100 mg BID EMMA Administration Montelukast Sodium 10 mg 09/01/22 09:00 Montelukast 10 Mg Tab PO DAILY EMMA Morphine Sulfate 4 mg 08/31/22 11:54 09/01/22 05:28 Morphine Sulfate 4 Mg/Ml Syringe IV 4 mg Q4HR PRN Administration Severe Pain (Scale 7 to 10) Naloxone HCl 0.2 mg 08/31/22 11:54 Naloxone 0.4 Mg/Ml 1 Ml Vial IV Q2M PRN Opioid Reversal Pantoprazole Sodium 40 mg 08/31/22 21:00 08/31/22 17:56 Pantoprazole 40 Mg/10 Ml Vial IVP 40 mg BID EMMA Administration Venlafaxine HCl 75 mg 09/01/22 09:00 Venlafaxine Hcl Er 75 Mg Cap PO DAILY EMMA Intake and Output 08/31/22 09/01/22 09/01/22 22:59 06:59 14:59 Intake Total 10 20 Output Total 400 275 Balance -390 -255 Intake: IV 10 20 Invasive Line 1 10 10 Invasive Line 2 10 Output: Urine 400 275 Other: Voiding Method Indwelling Catheter Indwelling Catheter # Bowel Movements 1 09/01/22 06:12 09/01/22 06:12
[2022-09-01] MEDS: MONTELUKAST 10 MG TAB PO SCH (08:04)
[2022-09-01] MEDS: METOPROLOL TARTRATE 50 MG TAB PO SCH ×2 (08:04→20:21)
[2022-09-01] MEDS: VENLAFAXINE HCL ER 75 MG CAP PO SCH (08:04)
[2022-09-01] MEDS: PANTOPRAZOLE 40 MG/10 ML VIAL IVP SCH (08:05)
[2022-09-01] MEDS: ASPIRIN 81 MG PO SCH (08:05)
[2022-09-01] MEDS: AMIODARONE 100 MG TAB PO SCH (08:06)
--- NOTE | 2022-09-01 10:16 | P.PN ---
Subjective Progress Note Date: 09/01/22 Principal diagnosis: Status post fall Patient doing much better today. Complaining of mild back pain which she states is chronic for her. Denies shortness of breath. No chest pain. No abdominal discomforts. She says her extremities feel much better than yesterday with only mild soreness. Denies any numbness or weakness. Cardiology and orthospine consults noted and appreciated. Morning labs reveal normalization of her lactic acid. CPK increased at 3197. Objective - Vital Signs Vital signs: Vital Signs Temp 97.8 F 09/01/22 08:00 Pulse 80 09/01/22 08:00 Resp 20 09/01/22 08:00 BP 115/69 09/01/22 08:00 Pulse Ox 98 09/01/22 08:00 FiO2 Intake & Output 08/31/22 09/01/22 09/01/22 18:59 06:59 18:59 Intake Total 30 480 Output Total 400 275 300 Balance -400 -245 180 Weight 92.533 kg Intake: IV 30 Invasive Line 1 20 Invasive Line 2 10 Oral 480 Output: Urine 400 275 300 Other: Voiding Method Indwelling Catheter Indwelling Catheter # Bowel Movements 1 - Exam Abdomen: Soft, nontender, nondistended - Labs CBC & Chem 7: 09/01/22 06:12 09/01/22 06:12 Labs: Abnormal Lab Results - Last 24 Hours (Table) 08/31/22 08/31/22 08/31/22 Range/Units 09:20 09:23 10:02 RBC (3.80-5.40) m/uL MCV (80.0-100.0) fL Neutrophils # 14.2 H (1.3-7.7) k/uL Lymphocytes # 0.5 L (1.0-4.8) k/uL Monocytes # 1.1 H (0-1.0) k/uL Sodium 135 L (137-145) mmol/L Potassium 5.5 H (3.5-5.1) mmol/L Chloride (98-107) mmol/L Carbon Dioxide 18 L (22-30) mmol/L BUN 37 H (7-17) mg/dL Creatinine 1.78 H (0.52-1.04) mg/dL Plasma Lactic Acid Eddie (0.7-2.0) mmol/L Calcium (8.4-10.2) mg/dL Total Bilirubin 1.5 H (0.2-1.3) mg/dL AST 93 H (14-36) U/L ALT (4-34) U/L Creatine Kinase 1405 H* (30-135) U/L Troponin I 2.160 H* (0.000-0.034) ng/mL Total Protein 5.9 L (6.3-8.2) g/dL Albumin (3.5-5.0) g/dL Urine Appearance (Clear) Urine Protein (Negative) Urine Blood (Negative) Ur Leukocyte Esterase (Negative) Urine RBC (0-5) /hpf Urine WBC (0-5) /hpf Urine WBC Clumps (None) /hpf Urine Bacteria (None) /hpf Urine Mucus (None) /hpf Urine Opiates Screen (NotDetected) 08/31/22 08/31/22 08/31/22 Range/Units 10:24 12:45 12:45 RBC (3.80-5.40) m/uL MCV (80.0-100.0) fL Neutrophils # (1.3-7.7) k/uL Lymphocytes # (1.0-4.8) k/uL Monocytes # (0-1.0) k/uL Sodium (137-145) mmol/L Potassium (3.5-5.1) mmol/L Chloride (98-107) mmol/L Carbon Dioxide (22-30) mmol/L BUN (7-17) mg/dL Creatinine (0.52-1.04) mg/dL Plasma Lactic Acid Eddie 2.3 H* (0.7-2.0) mmol/L Calcium (8.4-10.2) mg/dL Total Bilirubin (0.2-1.3) mg/dL AST (14-36) U/L ALT (4-34) U/L Creatine Kinase (30-135) U/L Troponin I 1.960 H* (0.000-0.034) ng/mL Total Protein (6.3-8.2) g/dL Albumin (3.5-5.0) g/dL Urine Appearance Cloudy H (Clear) Urine Protein 1+ H (Negative) Urine Blood Moderate H (Negative) Ur Leukocyte Esterase Large H (Negative) Urine RBC 11 H (0-5) /hpf Urine WBC >182 H (0-5) /hpf Urine WBC Clumps Few H (None) /hpf Urine Bacteria Many H (None) /hpf Urine Mucus Few H (None) /hpf Urine Opiates Screen Detected H (NotDetected) 08/31/22 09/01/22 09/01/22 Range/Units 15:56 06:12 06:12 RBC 3.34 L (3.80-5.40) m/uL MCV 106.7 H (80.0-100.0) fL Neutrophils # (1.3-7.7) k/uL Lymphocytes # 0.4 L (1.0-4.8) k/uL Monocytes # (0-1.0) k/uL Sodium (137-145) mmol/L Potassium (3.5-5.1) mmol/L Chloride 111 H (98-107) mmol/L Carbon Dioxide 19 L (22-30) mmol/L BUN 50 H (7-17) mg/dL Creatinine 1.55 H (0.52-1.04) mg/dL Plasma Lactic Acid Eddie (0.7-2.0) mmol/L Calcium 7.9 L (8.4-10.2) mg/dL Total Bilirubin (0.2-1.3) mg/dL AST 157 H (14-36) U/L ALT 40 H (4-34) U/L Creatine Kinase 3197 H* (30-135) U/L Troponin I 2.350 H* (0.000-0.034) ng/mL Total Protein 5.5 L (6.3-8.2) g/dL Albumin 3.1 L (3.5-5.0) g/dL Urine Appearance (Clear) Urine Protein (Negative) Urine Blood (Negative) Ur Leukocyte Esterase (Negative) Urine RBC (0-5) /hpf Urine WBC (0-5) /hpf Urine WBC Clumps (None) /hpf Urine Bacteria (None) /hpf Urine Mucus (None) /hpf Urine Opiates Screen (NotDetected) Microbiology - Last 24 Hours (Table) 08/31/22 10:24 Urine Culture - Preliminary Urine,Voided Assessment and Plan (1) Ground-level fall Narrative/Plan: Patient doing better at this time. Await infectious disease and nephrology consultations. Continue IV hydration. Monitor kidney function. Keep on bed rest until cleared by orthospine. Would consult physical therapy at that point. Likely will transfer service to medicine tomorrow. Current Visit: Yes Status: Acute Code(s): W18.30XA - FALL ON SAME LEVEL, UNSPECIFIED, INITIAL ENCOUNTER SNOMED Code(s): 67381718
--- NOTE | 2022-09-01 11:45 | P.NPCON ---
History of Present Illness - Reason for Consult acute renal failure - History of Present Illness Patient is an 87-year-old female with history of chronic A. fib and asthma. Patient is admitted to the hospital after a fall in her garage while taking groceries into the house. Patient was apparently wedged between the car and other materials in the garage and was unable to get up. Patient had been on the floor for 10-14 hours. CK was elevated at 3197 Patient was noted to have facial swelling and lacerations which have improved. CT of the brain and C-spine showed no acute abnormalities. Serum creatinine was 1.78 on admission and it is down to 1.5. Previous creatinine 1.2 on 07/02/2022. Patient has an indwelling Man catheter with good urine output. Blood pressure has been on the lower side with systolic around 110-112mmHg Review of Systems As per HPI Past Medical History Past Medical History: Atrial Fibrillation, Asthma, Hypertension, Osteoarthritis (OA), Syncope Additional Past Medical History / Comment(s): fell 3 weeks after passing out, hit head, neede several stitches, see DR [facility]razas [facility], sepsis 2012 & hospitalized for over a month History of Any Multi-Drug Resistant Organisms: None Reported Past Surgical History: Bowel Resection, Hysterectomy, Joint Replacement, Tonsillectomy Additional Past Surgical History / Comment(s): cardioversion, both hips replaced, bowel resection due to perforation & then septic Past Anesthesia/Blood Transfusion Reactions: Blood Transfusion Reaction Additional Past Anesthesia/Blood Transfusion Reaction / Comment(s): Patient states she has had two transfusions and had a bad reaction after one of them. Past Psychological History: No Psychological Hx Reported Smoking Status: Former smoker Past Alcohol Use History: Occasional Past Drug Use History: None Reported Medications and Allergies Home Medications Medication Instructions Recorded Confirmed Type Amiodarone [Cordarone] 50 mg PO DAILY 02/18/14 08/31/22 History Montelukast [Singulair] 10 mg PO DAILY 02/18/14 08/31/22 History amLODIPine [Norvasc] 5 mg PO DAILY 02/18/14 08/31/22 History Albuterol Sulfate [Albuterol 2 puff INHALATION RT-Q6H PRN 03/11/21 08/31/22 History Sulfate Hfa] Metoprolol Tartrate [Lopressor] 100 mg PO BID 03/11/21 08/31/22 History Aspirin EC [Ecotrin Low Dose] 81 mg PO DAILY 08/31/22 08/31/22 History HYDROcodone/APAP 5-325MG [[place] 1 tab PO Q8H 08/31/22 08/31/22 History 5-325] Venlafaxine HCl ER [Effexor Xr] 75 mg PO DAILY 08/31/22 08/31/22 History Allergies Allergy/AdvReac Type Severity Reaction Status Date / Time No Known Allergies Allergy Verified 08/31/22 12:37 Physical Exam Vitals: Vital Signs Temp Pulse Pulse Resp BP BP Pulse Ox 09/01/22 08:00 97.8 F 80 20 115/69 98 09/01/22 04:00 98 F 76 18 103/64 97 09/01/22 02:00 78 18 09/01/22 00:00 97.3 F L 78 18 114/74 98 08/31/22 20:00 97.5 F L 90 18 122/67 93 L 08/31/22 15:33 99.5 F 88 16 146/76 92 L 08/31/22 15:00 99.5 F 79 18 121/67 93 L 08/31/22 14:00 99.3 F 93 18 111/88 92 L 08/31/22 13:30 99.1 F 95 18 111/71 95 08/31/22 13:23 100 08/31/22 13:13 90 08/31/22 13:00 98.8 F 86 18 114/74 96 08/31/22 12:30 97.9 F 86 18 106/74 96 Intake and Output 08/31/22 09/01/22 09/01/22 22:59 06:59 14:59 Intake Total 10 20 480 Output Total 400 275 300 Balance -390 -255 180 Intake: IV 10 20 Invasive Line 1 10 10 Invasive Line 2 10 Oral 480 Output: Urine 400 275 300 Other: Voiding Method Indwelling Catheter Indwelling Catheter Indwelling Catheter # Bowel Movements 1 Patient is awake, comfortable, no acute distress alert oriented 3 Examination of the heart S1 and S2 Examination lungs bilateral breath sounds are heard Abdomen is soft nontender Examination of lower extremities shows no significant edema, bilateral superficial lacerations noted in the legs. [employer] exam grossly intact Results - Lab Results Most recent lab results Calcium 7.9 mg/dL (8.4-10.2) L 09/01/22 06:12 09/01/22 06:12 09/01/22 06:12 Assessment and Plan Assessment: 1. Acute kidney injury secondary to volume depletion, rhabdo my lysis, currently improving. UA shows 1+ protein and moderate blood WBCs more than 182. CT abdomen shows no evidence of hydronephrosis 2. Rhabdomyolysis with history of fall and patient was on the floor for about 10-14 hours 3. UTI started on antibiotics, urine culture is pending 4. L1 compression fracture 5. Chronic A. fib 6. Benign hypertension maintained on Norvasc and metoprolol at home Plan: Continue with IV fluids Continue with IV antibiotics Follow-up on urine cultures Repeat labs in a.m. Avoid nephrotoxic agents Avoid hypotension next Thank you for the consultation. We will continue to follow the patient with you during her hospitalization
--- NOTE | 2022-09-01 12:08 | P.CNOR ---
History of Present Illness - HPI Consult date: 09/01/22 Consult reason: low back pain History of present illness: Patient is a pleasant 87-year-old female who sustained a fall with prolonged downtime yesterday. The patient was found have significant back pain and we are counseled in this regard. Apparently the patient fell at home in her garage. She lives by herself and she fell between the car and some other materials. She was unable to get up and apparently down on the floor the garage for greater than 10 hours. She is being evaluated by neurology as well as general surgery and our service. In regards to her back she says that she has had chronic back pain for years and years. She says that she has not had prior surgery and she has worsening pain particularly yesterday after her fall. She denies new numbness tingling in her legs but she says she has some chronic pain at her left knee. She says she has history of pain at her hips and her lower back and has had bilateral hip replacements in the past. She denies new numbness tingling but has pain around her feet and shins and legs due to her fall and prolonged downtime her she had some local injury and stasis pressure injuries as well. She denies shortness of breath. She denies acute loss of consciousness. She denies any chest pain. Denies abdominal pain nausea or vomiting. She says she has had low back pain for greater than 20 years and significant arthritis in her back. She says that she used to go through some treatment with therapy and bracing without is greater than 5 years ago. She has not had active treatment recently. Review of Systems As stated per HPI. She denies new changes in bowel bladder function she denies any new changes in her function or lower extremities. she has chronic low back pain, she is not sure for pain in her back is changed but she normally feels significant pain in her back yesterday was particularly bad after fall but seems to be resolving a little bit today. Past Medical History Past Medical History: Atrial Fibrillation, Asthma, Hypertension, Osteoarthritis (OA), Syncope Additional Past Medical History / Comment(s): fell 3 weeks after passing out, hit head, neede several stitches, see DR Terrazas [facility], sepsis 2011 & hospitalized for over a month History of Any Multi-Drug Resistant Organisms: None Reported Past Surgical History: Bowel Resection, Hysterectomy, Joint Replacement, Tonsillectomy Additional Past Surgical History / Comment(s): cardioversion, both hips replaced, bowel resection due to perforation & then septic Past Anesthesia/Blood Transfusion Reactions: Blood Transfusion Reaction Additional Past Anesthesia/Blood Transfusion Reaction / Comm: Patient states she has had two transfusions and had a bad reaction after one of them. Past Psychological History: No Psychological Hx Reported Smoking Status: Former smoker Past Alcohol Use History: Occasional Past Drug Use History: None Reported Medications and Allergies Home Medications Medication Instructions Recorded Confirmed Type Amiodarone [Cordarone] 50 mg PO DAILY 02/18/14 08/31/22 History Montelukast [Singulair] 10 mg PO DAILY 02/18/14 08/31/22 History amLODIPine [Norvasc] 5 mg PO DAILY 02/18/14 08/31/22 History Albuterol Sulfate [Albuterol 2 puff INHALATION RT-Q6H PRN 03/11/21 08/31/22 History Sulfate Hfa] Metoprolol Tartrate [Lopressor] 100 mg PO BID 03/11/21 08/31/22 History Aspirin EC [Ecotrin Low Dose] 81 mg PO DAILY 08/31/22 08/31/22 History HYDROcodone/APAP 5-325MG [[place] 1 tab PO Q8H 08/31/22 08/31/22 History 5-325] Venlafaxine HCl ER [Effexor Xr] 75 mg PO DAILY 08/31/22 08/31/22 History Allergies Allergy/AdvReac Type Severity Reaction Status Date / Time No Known Allergies Allergy Verified 08/31/22 12:37 Physical Examination Osteopathic Statement: *. No significant issues noted on an osteopathic structural exam other than those noted in the History and Physical/Consult. - L Spine: dermatomal strength & reflexes bilateral Strength: hip flexion: 4/5 (Her lower extremities are wrapped for local wound she has some diffuse weakness grossly at her bilateral lower extremities but she is able to dorsiflex plantarflexed bend her knees and hips independently. Her back is diffuse tenderness throughout with paravertebral spasm. There is no point tendern) Results - Labs Labs: Abnormal Lab Results - Last 24 Hours (Table) 08/31/22 08/31/22 08/31/22 Range/Units 12:45 12:45 15:56 RBC (3.80-5.40) m/uL MCV (80.0-100.0) fL Lymphocytes # (1.0-4.8) k/uL Chloride (98-107) mmol/L Carbon Dioxide (22-30) mmol/L BUN (7-17) mg/dL Creatinine (0.52-1.04) mg/dL Plasma Lactic Acid Eddie 2.3 H* (0.7-2.0) mmol/L Calcium (8.4-10.2) mg/dL AST (14-36) U/L ALT (4-34) U/L Creatine Kinase (30-135) U/L Troponin I 1.960 H* 2.350 H* (0.000-0.034) ng/mL Total Protein (6.3-8.2) g/dL Albumin (3.5-5.0) g/dL 09/01/22 09/01/22 Range/Units 06:12 06:12 RBC 3.34 L (3.80-5.40) m/uL MCV 106.7 H (80.0-100.0) fL Lymphocytes # 0.4 L (1.0-4.8) k/uL Chloride 111 H (98-107) mmol/L Carbon Dioxide 19 L (22-30) mmol/L BUN 50 H (7-17) mg/dL Creatinine 1.55 H (0.52-1.04) mg/dL Plasma Lactic Acid Eddie (0.7-2.0) mmol/L Calcium 7.9 L (8.4-10.2) mg/dL AST 157 H (14-36) U/L ALT 40 H (4-34) U/L Creatine Kinase 3197 H* (30-135) U/L Troponin I (0.000-0.034) ng/mL Total Protein 5.5 L (6.3-8.2) g/dL Albumin 3.1 L (3.5-5.0) g/dL Microbiology - Last 24 Hours (Table) 08/31/22 10:24 Urine Culture - Preliminary Urine,Voided H & H 08/31/22 09/01/22 Range/Units 09:23 06:12 Hgb 13.6 11.5 (11.4-16.0) gm/dL Hct 42.9 35.6 (34.0-46.0) % Coagulation 08/31/22 Range/Units 09:20 INR 0.9 (<1.2) Result Diagrams: 09/01/22 06:12 09/01/22 06:12 - Diagnostic results CT Scan - lumbar: report reviewed, image reviewed (Imaging in regards to her spine is reviewed. She is evidence of severe degenerative changes throughout L1 through S1 with vacuum disc phenomenon disc height loss possible autofusion L2-3 and 4. There is evidence compression deformity of L1 with about 30% height loss) Assessment and Plan Assessment: Status post fall yesterday with prolonged downtime Chronic low back pain with severe disc degeneration and likely new finding of L1 compression fracture, traumatic Multiple falls Lower extremity pressure stasis injuries due to prolonged downtime after falling yesterday Difficulty ambulating Plan: Status post fall yesterday with prolonged downtime Chronic low back pain with severe disc degeneration and likely new finding of L1 compression fracture, traumatic Multiple falls Lower extremity pressure stasis injuries due to prolonged downtime after falling yesterday Difficulty ambulating The patient seems to have a new injury at L1 with compression deformity due to her fall. She is not having acute neurologic change and I think that she can make progress and heal the fracture with conservative treatment and bracing. We'll order an LSO brace for her that she should wear whenever she is out of b ed. She may remove it for bathing. She may remove it when elevated less than 45. The patient has been having multiple falls at home and apparently this has been an issue with her and her family as she lives alone and has been very resistant for any assistance or other living arrangement. She will likely need placement post hospitalization and will have case management see her to assess this and discussed with her and her family. The patient is doing local wound care at her lower extremities for her pressure and stasis injuries due to her fall. She is continue management with surgery as well. We will continue to follow her with you.
--- NOTE | 2022-09-01 14:15 | P.PN ---
Subjective Progress Note Date: 09/01/22 Principal diagnosis: Left knee wound and UTI Patient is a 87-year female with a past medical history significant for atrial fibrillation hypertension asthma osteoarthritis syncope patient was brought into the ER after apparently patient was noticed to be in her garage w edged between her car and some fencing material, patient was noted to have significant hand laceration to the left knee and left foot toes also have a positive UA concerning for a urinary tract infection. on today's evaluation that is 09/01/2022, the patient is afebrile the patient is any more awake and alert, the patient is breathing comfortably pain to the left knee and leg is currently controlled no chest pain shortness of breath or cough and no diarrhea Objective - Vital Signs Vital signs: Vital Signs Temp 97.6 F 09/01/22 12:00 Pulse 74 09/01/22 12:00 Resp 18 09/01/22 12:00 BP 99/62 09/01/22 12:00 Pulse Ox 98 09/01/22 12:16 FiO2 Intake & Output 08/31/22 09/01/22 09/01/22 18:59 06:59 18:59 Intake Total 30 480 Output Total 400 275 425 Balance -400 -245 55 Weight 92.533 kg Intake: IV 30 Invasive Line 1 20 Invasive Line 2 10 Oral 480 Output: Urine 400 275 425 Other: Voiding Method Indwelling Catheter Indwelling Catheter # Bowel Movements 1 - Exam GENERAL DESCRIPTION: An elderly female lying in bed in no distress RESPIRATORY SYSTEM: Unlabored breathing , decreased breath sounds at bases HEART: S1 S2 regular rate and rhythm , ABDOMEN: Soft , no tenderness EXTREMITIES: Left knee laceration is currently dressed no drainage on the dressing - Labs CBC & Chem 7: 09/01/22 06:12 09/01/22 06:12 Labs: Abnormal Lab Results - Last 24 Hours (Table) 08/31/22 08/31/22 08/31/22 Range/Units 12:45 12:45 15:56 RBC (3.80-5.40) m/uL MCV (80.0-100.0) fL Lymphocytes # (1.0-4.8) k/uL Chloride (98-107) mmol/L Carbon Dioxide (22-30) mmol/L BUN (7-17) mg/dL Creatinine (0.52-1.04) mg/dL Plasma Lactic Acid Eddie 2.3 H* (0.7-2.0) mmol/L Calcium (8.4-10.2) mg/dL AST (14-36) U/L ALT (4-34) U/L Creatine Kinase (30-135) U/L Troponin I 1.960 H* 2.350 H* (0.000-0.034) ng/mL Total Protein (6.3-8.2) g/dL Albumin (3.5-5.0) g/dL 09/01/22 09/01/22 Range/Units 06:12 06:12 RBC 3.34 L (3.80-5.40) m/uL MCV 106.7 H (80.0-100.0) fL Lymphocytes # 0.4 L (1.0-4.8) k/uL Chloride 111 H (98-107) mmol/L Carbon Dioxide 19 L (22-30) mmol/L BUN 50 H (7-17) mg/dL Creatinine 1.55 H (0.52-1.04) mg/dL Plasma Lactic Acid Eddie (0.7-2.0) mmol/L Calcium 7.9 L (8.4-10.2) mg/dL AST 157 H (14-36) U/L ALT 40 H (4-34) U/L Creatine Kinase 3197 H* (30-135) U/L Troponin I (0.000-0.034) ng/mL Total Protein 5.5 L (6.3-8.2) g/dL Albumin 3.1 L (3.5-5.0) g/dL Microbiology - Last 24 Hours (Table) 08/31/22 10:24 Urine Culture - Preliminary Urine,Voided Assessment and Plan (1) Laceration of left knee Current Visit: Yes Status: Acute Code(s): S81.012A - LACERATION WITHOUT FOREIGN BODY, LEFT KNEE, INIT ENCNTR SNOMED Code(s): 48561958341944145 (2) UTI (urinary tract infection) Current Visit: Yes Status: Acute Code(s): N39.0 - URINARY TRACT INFECTION, SITE NOT SPECIFIED SNOMED Code(s): 17033132 Plan: 1patient presented to hospital with fall patient did have a laceration to the left knee and left foot toes area some swelling no drainage recommend local wound care with dry protective dressing. 2positive UA has some urinary symptoms concerning for UTI possible responsible for the fall and weakness, urine cultures currently pending 3patient to continue with Rocephin 1 g daily while waiting for the culture to finalize Time with Patient: Less than 30
--- NOTE | 2022-09-01 14:25 | P.PN ---
Subjective Progress Note Date: 09/01/22 Patient is a 87-year female with a past medical history significant for atrial fibrillation hypertension asthma osteoarthritis syncope patient was brought into the ER after apparently patient was noticed to be in her garage wedged between her car and some fencing material apparently the patient was on the floor for about 10 to 14 hours and did have some facial swelling with laceration to the knee area patient denies loss of consciousness ER brought the patient to the hospital on arrival to the the patient was hypothermic subsequently low-grade fever of 99.3 F patient did have a white count of 16.3 with a left shift did have elevated BUN and creatinine and lactic acid was mildly elevated urine was positive urine toxin was positive for opiates patient did have a chest x-ray no acute pulmonary process CT of the chest abdominal pelvis which did shows superior endplate compression deformity L1 anterior abdominal anterior pelvic wall herniation with nonobstructed loops of bowel patient did have an x-ray with evidence of any fracture patient was started on Rocephin infectious disease was consulted for further management of antibiotic therapy local wound care to the area patient did have a bruising to the left knee and left foot toes but no drainage has been complaining of pain to be more of a dull aching to sharp 5-6 out of 10 and no radiation 09/01. Patient seen and examined. States back pain has improved. Denies any lightheadedness or dizziness. Vital signs stable REVIEW OF SYSTEMS: CONSTITUTIONAL: No fever, no malaise,. CARDIOVASCULAR: No chest pain, no palpitations, no syncope. PULMONARY: No shortness of breath, no cough, GASTROINTESTINAL: No diarrhea, no nausea, no vomiting, no abdominal pain. NEUROLOGICAL: No headaches, no weakness, PHYSICAL EXAMINATION: GENERAL: The patient is alert and oriented x3, not in any acute distress. Well developed, well nourished. HEENT: Pupils are round and equally reacting to light. EOMI. No scleral icterus. No conjunctival pallor. Normocephalic, atraumatic. No pharyngeal erythema. No thyromegaly. CARDIOVASCULAR: S1 and S2 present. No murmurs, rubs, or gallops. PULMONARY: Chest is clear to auscultation, no wheezing or crackles. ABDOMEN: Soft, nontender, nondistended, normoactive bowel sounds. No palpable organomegaly. MUSCULOSKELETAL: No joint swelling or deformity. EXTREMITIES: No cyanosis, clubbing, or pedal edema. NEUROLOGICAL: Gross neurological examination did not reveal any focal deficits. SKIN: No rashes. Assessment and plan Acute rhabdomyolysis Acute renal failure UTI L1 compression fracture Elevated lactic acid levels Elevated troponins. Atrial fibrillation History of asthma Hypertension Plan; Monitor vital signs Monitor CBC Monitor CMP Continue telemetry monitoring. Follow-up on urine cultures Continue IV Rocephin Elevated troponin most likely secondary to renal failure, 2-D echo ordered Continue aspirin, beta blockers and amiodarone Follow-up in ID recs Follow-up on cardiology recommendations Follow up on orthopedic recommendations DVT prophylaxis: Objective - Vital Signs Vital signs: Vital Signs Temp 98 F 09/01/22 04:00 Pulse 76 09/01/22 04:00 Resp 18 09/01/22 04:00 BP 103/64 09/01/22 04:00 Pulse Ox 97 09/01/22 04:00 FiO2 Intake & Output 08/31/22 09/01/22 09/01/22 18:59 06:59 18:59 Intake Total 30 240 Output Total 400 275 Balance -400 -245 240 Weight 92.533 kg Intake: IV 30 Invasive Line 1 20 Invasive Line 2 10 Oral 240 Output: Urine 400 275 Other: Voiding Method Indwelling Catheter # Bowel Movements 1 - Labs CBC & Chem 7: 09/01/22 06:12 09/01/22 06:12 Labs: Abnormal Lab Results - Last 24 Hours (Table) 08/31/22 08/31/22 08/31/22 Range/Units 09:20 09:20 09:20 WBC (3.8-10.6) k/uL RBC (3.80-5.40) m/uL MCV (80.0-100.0) fL Neutrophils # (1.3-7.7) k/uL Lymphocytes # (1.0-4.8) k/uL Monocytes # (0-1.0) k/uL Macrocytosis APTT 21.9 L (22.0-30.0) sec Sodium (137-145) mmol/L Potassium (3.5-5.1) mmol/L Chloride (98-107) mmol/L Carbon Dioxide (22-30) mmol/L BUN (7-17) mg/dL Creatinine (0.52-1.04) mg/dL Plasma Lactic Acid Eddie 6.4 H* (0.7-2.0) mmol/L Calcium (8.4-10.2) mg/dL Total Bilirubin (0.2-1.3) mg/dL AST (14-36) U/L ALT (4-34) U/L Creatine Kinase (30-135) U/L Troponin I 2.160 H* (0.000-0.034) ng/mL Total Protein (6.3-8.2) g/dL Albumin (3.5-5.0) g/dL Urine Appearance (Clear) Urine Protein (Negative) Urine Blood (Negative) Ur Leukocyte Esterase (Negative) Urine RBC (0-5) /hpf Urine WBC (0-5) /hpf Urine WBC Clumps (None) /hpf Urine Bacteria (None) /hpf Urine Mucus (None) /hpf Urine Opiates Screen (NotDetected) 08/31/22 08/31/22 08/31/22 Range/Units 09:23 10:02 10:24 WBC 16.3 H (3.8-10.6) k/uL RBC (3.80-5.40) m/uL MCV 108.4 H (80.0-100.0) fL Neutrophils # 14.2 H (1.3-7.7) k/uL Lymphocytes # 0.5 L (1.0-4.8) k/uL Monocytes # 1.1 H (0-1.0) k/uL Macrocytosis Marked A APTT (22.0-30.0) sec Sodium 135 L (137-145) mmol/L Potassium 5.5 H (3.5-5.1) mmol/L Chloride (98-107) mmol/L Carbon Dioxide 18 L (22-30) mmol/L BUN 37 H (7-17) mg/dL Creatinine 1.78 H (0.52-1.04) mg/dL Plasma Lactic Acid Eddie (0.7-2.0) mmol/L Calcium (8.4-10.2) mg/dL Total Bilirubin 1.5 H (0.2-1.3) mg/dL AST 93 H (14-36) U/L ALT (4-34) U/L Creatine Kinase 1405 H* (30-135) U/L Troponin I (0.000-0.034) ng/mL Total Protein 5.9 L (6.3-8.2) g/dL Albumin (3.5-5.0) g/dL Urine Appearance Cloudy H (Clear) Urine Protein 1+ H (Negative) Urine Blood Moderate H (Negative) Ur Leukocyte Esterase Large H (Negative) Urine RBC 11 H (0-5) /hpf Urine WBC >182 H (0-5) /hpf Urine WBC Clumps Few H (None) /hpf Urine Bacteria Many H (None) /hpf Urine Mucus Few H (None) /hpf Urine Opiates Screen Detected H (NotDetected) 08/31/22 08/31/22 08/31/22 Range/Units 12:45 12:45 15:56 WBC (3.8-10.6) k/uL RBC (3.80-5.40) m/uL MCV (80.0-100.0) fL Neutrophils # (1.3-7.7) k/uL Lymphocytes # (1.0-4.8) k/uL Monocytes # (0-1.0) k/uL Macrocytosis APTT (22.0-30.0) sec Sodium (137-145) mmol/L Potassium (3.5-5.1) mmol/L Chloride (98-107) mmol/L Carbon Dioxide (22-30) mmol/L BUN (7-17) mg/dL Creatinine (0.52-1.04) mg/dL Plasma Lactic Acid Eddie 2.3 H* (0.7-2.0) mmol/L Calcium (8.4-10.2) mg/dL Total Bilirubin (0.2-1.3) mg/dL AST (14-36) U/L ALT (4-34) U/L Creatine Kinase (30-135) U/L Troponin I 1.960 H* 2.350 H* (0.000-0.034) ng/mL Total Protein (6.3-8.2) g/dL Albumin (3.5-5.0) g/dL Urine Appearance (Clear) Urine Protein (Negative) Urine Blood (Negative) Ur Leukocyte Esterase (Negative) Urine RBC (0-5) /hpf Urine WBC (0-5) /hpf Urine WBC Clumps (None) /hpf Urine Bacteria (None) /hpf Urine Mucus (None) /hpf Urine Opiates Screen (NotDetected) 09/01/22 09/01/22 Range/Units 06:12 06:12 WBC (3.8-10.6) k/uL RBC 3.34 L (3.80-5.40) m/uL MCV 106.7 H (80.0-100.0) fL Neutrophils # (1.3-7.7) k/uL Lymphocytes # 0.4 L (1.0-4.8) k/uL Monocytes # (0-1.0) k/uL Macrocytosis APTT (22.0-30.0) sec Sodium (137-145) mmol/L Potassium (3.5-5.1) mmol/L Chloride 111 H (98-107) mmol/L Carbon Dioxide 19 L (22-30) mmol/L BUN 50 H (7-17) mg/dL Creatinine 1.55 H (0.52-1.04) mg/dL Plasma Lactic Acid Eddie (0.7-2.0) mmol/L Calcium 7.9 L (8.4-10.2) mg/dL Total Bilirubin (0.2-1.3) mg/dL AST 157 H (14-36) U/L ALT 40 H (4-34) U/L Creatine Kinase 3197 H* (30-135) U/L Troponin I (0.000-0.034) ng/mL Total Protein 5.5 L (6.3-8.2) g/dL Albumin 3.1 L (3.5-5.0) g/dL Urine Appearance (Clear) Urine Protein (Negative) Urine Blood (Negative) Ur Leukocyte Esterase (Negative) Urine RBC (0-5) /hpf Urine WBC (0-5) /hpf Urine WBC Clumps (None) /hpf Urine Bacteria (None) /hpf Urine Mucus (None) /hpf Urine Opiates Screen (NotDetected) Microbiology - Last 24 Hours (Table) 08/31/22 10:24 Urine Culture - Preliminary Urine,Voided
[2022-09-01] MEDS: PANTOPRAZOLE 40 MG TABLET PO SCH (16:27)
[2022-09-01] MEDS: ALBUTEROL NEBULIZED 2.5 MG/3 ML INHALATION PRN ×2 (16:50→21:03)
[2022-09-01] MEDS: ACETAMINOPHEN TAB 325 MG TAB PO PRN (20:21)
[2022-09-02] MEDS: HYDROcodone/APAP 5-325MG 1 EACH TAB PO SCH ×3 (00:59→16:50)
[2022-09-02] MEDS: PANTOPRAZOLE 40 MG TABLET PO SCH ×2 (06:04→16:51)
[2022-09-02] MEDS: MORPHINE SULFATE 4 MG/ML SYRINGE IV PRN (06:04)
[2022-09-02] MEDS: SODIUM CHLORIDE 0.9% 1,000 ML IV SCH ×3 (06:05→20:14)
[2022-09-02] MEDS: METOPROLOL TARTRATE 50 MG TAB PO SCH ×2 (08:34→20:14)
[2022-09-02] MEDS: VENLAFAXINE HCL ER 75 MG CAP PO SCH (08:34)
[2022-09-02] MEDS: MONTELUKAST 10 MG TAB PO SCH (08:34)
[2022-09-02] MEDS: AMIODARONE 100 MG TAB PO SCH (08:36)
[2022-09-02] MEDS: ASPIRIN 81 MG PO SCH (08:50)
--- NOTE | 2022-09-02 08:55 | P.PN ---
Progress Note - Text Progress Note Date: 09/02/22 Orthopedic spine: History of present illness: Patient is a pleasant 87-year-old female who is seen and examined at bedside for further evaluation of her acute L1 compression fracture deformity, status post fall. She is currently resting comfortably in bed. Currently x-ray has into the room and is planning for bedside testing. Patient's back pain has been controlled at rest. She was not out of bed yesterday. A prescription was written and provided to obtain an LSO bracing yesterday. Nursing states that should be delivered today. It was discussed with nursing and the patient that she may remain in bed until his braces delivered and fitted appropriately. She is currently being seen and examined by multiple providers including neurology, medicine, general surgery, and infectious disease. She did sustained lower extremity pressure stasis due to her injuries with prolonged downtime which is being managed by infectious disease. Physical exam: Patient is awake, alert, and oriented 3 Vital signs stable Good chest excursion with deep inspiration and expiration Patient is currently lying flat resting comfortably in bed Generalized weakness of the lower extremities Dorsiflexion, plantarflexion, and extensor hallucis longus positive sustained bilaterally No signs or symptoms of DVT; no calf pain No pain with internal and external rotation of the hips bilaterally Neurovascularly intact Assessment: Likely acute traumatic L1 compression fracture deformity, status post fall Chronic low back pain Severe lumbar degenerative disc disease Multiple falls Lower extremity pressure statis due to injuries with prolonged downtime after sustaining fall Difficulty with ambulation Plan: 1. Currently, we'll plan to continue conservative treatment for her L1 compression fracture deformity. Prescription for bracing was written and provided yesterday. This brace was not obtained over the weekend. Currently, bracing is planning to be delivered today. We did discuss patient may remain in bed until this braces delivered and fitted appropriately. Once delivered and fitted properly, patient should wear the LSO brace for comfort and support while sitting upright at greater than 45, while working with therapy, and while ambulating; patient does not have to wear the brace while lying in bed or bathing. Patient should avoid excessive bending, twisting, and lifting; no lifting greater than 10 pounds. Once her brace is delivered and fitted properly, patient will be cleared for discharge from an orthopedic spine standpoint. Patient may follow-up with Kev Camacho PA-C or Dr. Saad Tierney at [facility] in 3 weeks following discharge. 2. Patient will continue be seen and examined by multiple other medical providers during her admission including general surgery, neurology, medicine and infectious disease. Infectious disease is currently managing her wound care.
[2022-09-02 09:18] LABS: HCT 36.2 % (34.0-46.0); HGB 11.1 gm/dL (11.4-16.0); MCH 33.3 pg (25.0-35.0); MCHC 30.6 g/dL (31.0-37.0); Macrocytosis Marked; Platelet Count 161 k/uL (150-450); RBC 3.32 m/uL (3.80-5.40); RDW 14.6 % (11.5-15.5); WBC 3.3 k/uL (3.8-10.6)
[2022-09-02 09:26] LABS: Albumin 2.8 g/dL (3.5-5.0); Calcium 7.9 mg/dL (8.4-10.2); Potassium 4.3 mmol/L (3.5-5.1); Total Bilirubin 0.5 mg/dL (0.2-1.3)
[2022-09-02] MEDS: ALBUTEROL NEBULIZED 2.5 MG/3 ML INHALATION PRN (09:55)
--- NOTE | 2022-09-02 11:32 | P.PN ---
Subjective Progress Note Date: 09/02/22 CHIEF COMPLAINT: Fall HISTORY OF PRESENT ILLNESS: Patient hospitalized after a ground fall with prolonged downtime. With evidence of rhabdomyolysis and L1 fracture. Patient denies any abdominal pain. She reports her back pain is controlled. She is achy all over. She is tolerating clear liquid diet. Has had no further nausea or vomiting. Afebrile. WBC is 3.3 hemoglobin stable 11.1+161 sodium is 140 potassium 4.3 creatinine is down to 1.15. Awaiting LSO brace PHYSICAL EXAM: VITAL SIGNS: Reviewed. GENERAL: Well-developed in no acute distress. HEENT: No sclera icterus. Extraocular movements grossly intact. Moist buccal mucosa. Head is atraumatic, normocephalic. ABDOMEN: Soft. Nondistended. Nontender. Chronic abdominal wall hernia nontender and reducible NEUROLOGIC: Alert and oriented. Cranial nerves II through XII grossly intact. Extremities: Legs are wrapped ASSESSMENT: 1. Ground fall with prolonged downtime. 2. Acute traumatic L1 compression fracture 3. Acute rhabdomyolysis 4. UTI 5. Acute kidney injury 6. Mildly elevated LFTs PLAN: -Advance diet to full liquids and then as tolerated -Continue supportive care -Increase activity when cleared by orthopedic service -Continue IV hydration -Transfer service to medicine Physician Vocational Training Teacher note has been reviewed by physician. Signing provider agrees with the documented findings, assessment, and plan of care. I have personally seen and examined the patient, reviewed the TELEPHOTO ENGINEER /PAs history, exam and MDM and agree with the assessment and plan as written. Based on total visit time, I have performed more than 50% of the visit. As above: Overall patient continues to slowly improve. She is complaining of dysphagia. Diet was advanced to full liquids. Will monitor to see how patient's dysphagia persists on full liquids. Anticipate patient will likely require short-term rehab. Awaiting back brace at this time. Objective - Vital Signs Vital signs: Vital Signs Temp 97.9 F 09/02/22 08:00 Pulse 80 09/02/22 10:10 Resp 18 09/02/22 08:00 BP 109/67 09/02/22 08:00 Pulse Ox 93 L 09/02/22 08:00 FiO2 Intake & Output 09/01/22 09/02/22 09/02/22 18:59 06:59 18:59 Intake Total 838 712 Output Total 550 250 400 Balance 288 462 -400 Intake: IV 10 Invasive Line 1 10 Oral [id number] Output: Urine 550 250 400 Other: Voiding Method Indwelling Catheter Indwelling Catheter Indwelling Catheter - Labs CBC & Chem 7: 09/02/22 06:56 09/02/22 06:56 Labs: Abnormal Lab Results - Last 24 Hours (Table) 09/02/22 09/02/22 Range/Units 06:56 06:56 WBC 3.3 L (3.8-10.6) k/uL RBC 3.32 L (3.80-5.40) m/uL Hgb 11.1 L (11.4-16.0) gm/dL MCV 109.0 H (80.0-100.0) fL MCHC 30.6 L (31.0-37.0) g/dL Macrocytosis Marked A Chloride 112 H (98-107) mmol/L BUN 39 H (7-17) mg/dL Creatinine 1.15 H (0.52-1.04) mg/dL Calcium 7.9 L (8.4-10.2) mg/dL AST 174 H (14-36) U/L ALT 45 H (4-34) U/L Total Protein 5.0 L (6.3-8.2) g/dL Albumin 2.8 L (3.5-5.0) g/dL Microbiology - Last 24 Hours (Table) 08/31/22 10:24 Urine Culture - Preliminary Urine,Voided Gram Neg Bacilli 08/31/22 12:00 Blood Culture - Preliminary Blood No Growth after 24 hours
--- NOTE | 2022-09-02 11:49 | P.PN ---
Subjective Progress Note Date: 09/02/22 The patient is a pleasant 87-year-old was known to or service from before with a past medical history significant for permanent atrial fibrillation currently she is on amiodarone as well as beta marilyn and she is not on any anticoagulation because of history of falling and bleeding as well as hypertension and dyslipidemia. We consulted to see the patient because of elevated troponin. The patient was in her usual state of health where she was trying to get the grocery from the trunk of her car when suddenly she fell. She does not recall losing her consciousness. She does not recall feeling dizzy or lightheaded or any feeling of heart racing or fluttering or any presyncope or syncope. Unfortunately the patient was down on the floor unable to get up for several hours. As a matter of fact she was crawling to reach for help. And for that reason she developed severe bilateral lower extremities bruises. She was brought to the hospital where she underwent a workup including EKG which was te chnically very difficult with extreme underlying artifact. She is known to have atrial fibrillation treated with rate control. Beside that she underwent troponin which came in to elevated but beside that her CK was elevated and she was diagnosed with rhabdomyolysis. Also she underwent further investigation including computed tomography scan which showed fractured L1. And also she underwent computed tomography scan of the abdomen which revealed abdominal wall hematoma. The trauma service was consulted to see the patient. Beside that infectious disease was consulted to see the patient. The patient currently does not report any symptoms of chest pain or chest discomfort and no shortness of breath and no dizziness or lightheadedness and no feeling of heart racing or fluttering. The rest of her blood work came in to be unremarkable beside elevated creatinine which is likely related to acute renal failure secondary to rhabdomyolysis. The examination is remarkable for stable vital signs. Also on exam she has irregular rhythm was diminished breathing sounds bilaterally and she has soft nontender abdomen with bilateral lower extremity wrapped secondary to bilateral lower extremities bruises. 09/02 Today in follow-up. She states she is feeling very stiff today and a little shortness of breath. She denies having any chest pain. She is currently on IV fluids at 130 mL/h. Repeat blood work revealed BUN 39, creatinine 1.15, potassium 4.3. CK is not available. WBC 3.3, hemoglobin 11.1. Physical Examination Gen: This is an 87-year-old female. She is resting bed appears to be comfortable. HEENT: Head is atraumatic, normocephalic. Pupils equal, round. Sclerae is anicteric. Oral mucous membranes are very dry. NECK: No JVD. LUNGS: Clear to auscultation. No wheezes or rhonchi. No intercostal retractions. HEART: Irregular rate and rhythm. Assessment Rhabdomyolysis Status post fall with no loss of consciousness Permanent atrial fibrillation with controlled heart rate Evidence of myocardial injury was no evidence of ischemia at this point. No evidence of ischemia clinically. This is likely related to rhabdomyolysis and renal failure Acute renal failure Plan The elevated troponin is likely secondary to the renal failure related to rhabdomyolysis Add aspirin to the current medical regimen Continue the current dose of beta marilyn and amiodarone She is not a candidate for anticoagulation because of the falling and bleeding and this is an example Cardiology will sign off and follow on an as-needed basis. Please reconsult for any new concerns. Nurse practitioner note has been reviewed, I agree with the documented findings and plan of care. Patient was seen and examined. Objective - Vital Signs Vital signs: Vital Signs Temp 97.6 F 09/02/22 04:00 Pulse 75 09/02/22 04:00 Resp 16 09/02/22 04:00 BP 120/79 09/02/22 04:00 Pulse Ox 94 L 09/02/22 04:00 FiO2 Intake & Output 09/01/22 09/02/22 09/02/22 18:59 06:59 18:59 Intake Total 838 712 Output Total 550 250 Balance 288 462 Intake: IV 10 Invasive Line 1 10 Oral [id number] Output: Urine 550 250 Other: Voiding Method Indwelling Catheter Indwelling Catheter - Labs CBC & Chem 7: 09/02/22 06:56 09/02/22 06:56 Labs: Microbiology - Last 24 Hours (Table) 08/31/22 10:24 Urine Culture - Preliminary Urine,Voided Gram Neg Bacilli 08/31/22 12:00 Blood Culture - Preliminary Blood No Growth after 24 hours
[2022-09-02] MEDS: ALBUTEROL NEBULIZED 2.5 MG/3 ML INHALATION SCH ×3 (11:53→20:07)
[2022-09-02] MEDS ORDERED: ALBUTEROL NEBULIZED 2.5 MG/3 ML INHALATION PRN (11:55)
--- NOTE | 2022-09-02 13:00 | P.PN ---
Subjective Patient is seen for follow-up for acute kidney injury, most likely prerenal and associated with rhabdomyolysis. Renal function is improving Creatinine down to 1.15. Overall patient states she is feeling better. Trying to increase oral intake. Objective - Vital Signs Vital signs: Vital Signs Temp 97.7 F 09/02/22 12:00 Pulse 84 09/02/22 12:04 Resp 18 09/02/22 12:00 BP 119/77 09/02/22 12:00 Pulse Ox 94 L 09/02/22 12:00 FiO2 Intake & Output 09/01/22 09/02/22 09/02/22 18:59 06:59 18:59 Intake Total 838 712 Output Total 550 250 400 Balance 288 462 -400 Intake: IV 10 Invasive Line 1 10 Oral [id number] Output: Urine 550 250 400 Other: Voiding Method Indwelling Catheter Indwelling Catheter Indwelling Catheter - Exam Awake, comfortable, no acute distress Examination of the heart S1 and S2 Examination lungs bilateral breath sounds are heard Abdomen is soft obese nontender Examination lower extremities shows bilateral extremities to be wrapped. CHIEF GUARD exam grossly intact - Labs CBC & Chem 7: 09/02/22 06:56 09/02/22 06:56 Labs: Abnormal Lab Results - Last 24 Hours (Table) 09/02/22 09/02/22 Range/Units 06:56 06:56 WBC 3.3 L (3.8-10.6) k/uL RBC 3.32 L (3.80-5.40) m/uL Hgb 11.1 L (11.4-16.0) gm/dL MCV 109.0 H (80.0-100.0) fL MCHC 30.6 L (31.0-37.0) g/dL Macrocytosis Marked A Chloride 112 H (98-107) mmol/L BUN 39 H (7-17) mg/dL Creatinine 1.15 H (0.52-1.04) mg/dL Calcium 7.9 L (8.4-10.2) mg/dL AST 174 H (14-36) U/L ALT 45 H (4-34) U/L Total Protein 5.0 L (6.3-8.2) g/dL Albumin 2.8 L (3.5-5.0) g/dL Microbiology - Last 24 Hours (Table) 08/31/22 10:24 Urine Culture - Preliminary Urine,Voided Gram Neg Bacilli 08/31/22 12:00 Blood Culture - Preliminary Blood No Growth after 24 hours Assessment and Plan Assessment: 1. Acute kidney injury secondary to volume depletion, rhabdomyolysis, currently improving. UA shows 1+ protein and moderate blood WBCs more than 182. CT abdomen shows no evidence of hydronephrosis. 2. Rhabdomyolysis with history of fall and patient was on the floor for about 10-14 hours 3. UTI started on antibiotics, urine culture is pending 4. L1 compression fracture 5. Chronic A. fib 6. Benign hypertension maintained on Norvasc and metoprolol at home Plan: Continue with IV fluids Continue with IV antibiotics Follow-up on urine cultures Repeat labs in a.m. Avoid nephrotoxic agents Avoid hypotension
[2022-09-02 13:20] LABS: Band Neutrophils % 2 %; Eosinophils # (M) 0.03 k/uL (0-0.7); Lymphocytes # (M) 0.86 k/uL (1.0-4.8); Monocytes # (M) 0.23 k/uL (0-1.0); Neutrophils % (M) 64 %; Nucleated Red Blood Cells 0 /100 WBC (0-0); Total Cells Counted 100
--- NOTE | 2022-09-02 13:46 | CA ---
Transthoracic Echo Report Name: Huma Watters Age: 87 Gender: F : 1935 Exam Date: 09/02/2022 07:38 Exam Location: [facility] Ht (in): 65 Wt (lb): 204 Ordering Physician: Cristobal Harrison MD ([id number]) Attending/Referring Phys: Ham Rolling Machine Operator Elliott White RDCS Procedure CPT: Indications: ACS Cardiac Hx: Technical Quality: Fair Contrast 1: Total Dose (mL): Contrast 2: Total Dose (mL): MEASUREMENTS (Male / Female) Normal Values 2D ECHO LV Diastolic Diameter PLAX 3.5 cm 4.2 - 5.9 / 3.9 - 5.3 cm LV Systolic Diameter PLAX 2.4 cm IVS Diastolic Thickness 1.1 cm 0.6 - 1.0 / 0.6 - 0.9 cm LVPW Diastolic Thickness 1.9 cm 0.6 - 1.0 / 0.6 - 0.9 cm LV Relative Wall Thickness 0.9 RV Internal Dim ED PLAX 2.3 cm LA Volume 96.8 cm??? 18 - 58 / 22 - 52 cm??? Ascending Aorta Diameter 3.4 cm M-MODE Aortic Root Diameter MM 2.3 cm AV Cusp Separation MM 1.5 cm DOPPLER AV Peak Velocity 146.1 cm/s AV Peak Gradient 8.5 mmHg LVOT Peak Velocity 93.2 cm/s LVOT Peak Gradient 3.5 mmHg MV Peak Velocity 125.0 cm/s MV Peak Gradient 6.3 mmHg MV Mean Velocity 62.1 cm/s MV Mean Gradient 2.0 mmHg MV Velocity Time Integral 25.1 cm MV Area PHT 3.7 cm??? Mitral E Point Velocity 107.9 cm/s Mitral A Point Velocity 21.1 cm/s Mitral E to A Ratio 5.1 MV Deceleration Time 142.0 ms TR Peak Velocity 323.3 cm/s TR Peak Gradient 41.8 mmHg Right Atrial Pressure 3.0 mmHg Pulmonary Artery Systolic Pressu 44.8 mmHg Right Ventricular Systolic Press 44.8 mmHg FINDINGS Left Ventricle Moderately increased septal wall thickness. Moderately increased posterior wall thickness. Small left ventricular cavity. Left ventricular ejection fraction is estimated at 50%. Septal hypokinesis. Right Ventricle Normal right ventricular size. Reduced right ventricular global systolic function. Moderate pulmonary hypertension. Right Atrium Severe right atrial dilatation. Left Atrium Severely increased left atrial volume. Mitral Valve Mild to moderate mitral regurgitation. Aortic Valve Trileaflet aortic valve. No aortic regurgitation. No aortic stenosis. Tricuspid Valve Moderate tricuspid regurgitation. Pulmonic Valve Pulmonic valve not well visualized. Pericardium Small pericardial effusion. Aorta Normal size aortic root and proximal ascending aorta. CONCLUSIONS Left ventricular ejection fraction 50% with septal hypokinesis Moderately increased left ventricular wall thickness Moderate to severely dilated left and right atrium Mild to moderate mitral regurgitation Moderate tricuspid regurgitation Small pericardial effusion Previewed by: Dr. Jose Manuel Vela DO (Electronically Signed) Final Date: 02 September 2022 13:45
[2022-09-02 14:04] VITALS: BMI 33.9
--- NOTE | 2022-09-02 14:11 | P.PN ---
Subjective Progress Note Date: 09/02/22 Patient is a 87-year female with a past medical history significant for atrial fibrillation hypertension asthma osteoarthritis syncope patient was brought into the ER after apparently patient was noticed to be in her garage wedged between her car and some fencing material apparently the patient was on the floor for about 10 to 14 hours and did have some facial swelling with laceration to the knee area patient denies loss of consciousness ER brought the patient to the hospital on arrival to the the patient was hypothermic subsequently low-grade fever of 99.3 F patient did have a white count of 16.3 with a left shift did have elevated BUN and creatinine and lactic acid was mildly elevated urine was positive urine toxin was positive for opiates patient did have a chest x-ray no acute pulmonary process CT of the chest abdominal pelvis which did shows superior endplate compression deformity L1 anterior abdominal anterior pelvic wall herniation with nonobstructed loops of bowel patient did have an x-ray with evidence of any fracture patient was started on Rocephin infectious disease was consulted for further management of antibiotic therapy local wound care to the area patient did have a bruising to the left knee and left foot toes but no drainage has been complaining of pain to be more of a dull aching to sharp 5-6 out of 10 and no radiation 09/01. Patient seen and examined. States back pain has improved. Denies any lightheadedness or dizziness. Vital signs stable 09/02. Patient seen and examined. Renal function improving, and creatinine down to 1.5 REVIEW OF SYSTEMS: CONSTITUTIONAL: No fever, no malaise,. CARDIOVASCULAR: No chest pain, no palpitations, no syncope. PULMONARY: No shortness of breath, no cough, GASTROINTESTINAL: No diarrhea, no nausea, no vomiting, no abdominal pain. NEUROLOGICAL: No headaches, no weakness, PHYSICAL EXAMINATION: GENERAL: The patient is alert and oriented x3, not in any acute distress. Well developed, well nourished. HEENT: Pupils are round and equally reacting to light. EOMI. No scleral icterus. No conjunctival pallor. Normocephalic, atraumatic. No pharyngeal erythema. No thyromegaly. CARDIOVASCULAR: S1 and S2 present. No murmurs, rubs, or gallops. PULMONARY: Chest is clear to auscultation, no wheezing or crackles. ABDOMEN: Soft, nontender, nondistended, normoactive bowel sounds. No palpable organomegaly. MUSCULOSKELETAL: No joint swelling or deformity. EXTREMITIES: No cyanosis, clubbing, or pedal edema. NEUROLOGICAL: Gross neurological examination did not reveal any focal deficits. SKIN: No rashes. Assessment and plan Acute rhabdomyolysis Acute renal failure UTI L1 compression fracture Elevated lactic acid levels Elevated troponins. Atrial fibrillation History of asthma Hypertension Plan; Monitor vital signs Monitor CBC Monitor CMP Avoid nephrotoxic agents. Avoid hypotension Continue telemetry monitoring. Follow-up on urine cultures Continue IV Rocephin Elevated troponin most likely secondary to renal failure, 2-D echo ordered Continue aspirin, beta blockers and amiodarone Follow-up in ID recs Follow-up on cardiology recommendations Follow up on orthopedic recommendations Follow-up in nephrology recommendations DVT prophylaxis: Objective - Vital Signs Vital signs: Vital Signs Temp 97.9 F 09/02/22 08:00 Pulse 80 09/02/22 10:10 Resp 18 09/02/22 08:00 BP 109/67 09/02/22 08:00 Pulse Ox 93 L 09/02/22 08:00 FiO2 Intake & Output 09/01/22 09/02/22 09/02/22 18:59 06:59 18:59 Intake Total 838 712 Output Total 550 250 400 Balance 288 462 -400 Intake: IV 10 Invasive Line 1 10 Oral [id number] Output: Urine 550 250 400 Other: Voiding Method Indwelling Catheter Indwelling Catheter Indwelling Catheter - Labs CBC & Chem 7: 09/02/22 06:56 09/02/22 06:56 Labs: Abnormal Lab Results - Last 24 Hours (Table) 09/02/22 09/02/22 Range/Units 06:56 06:56 WBC 3.3 L (3.8-10.6) k/uL RBC 3.32 L (3.80-5.40) m/uL Hgb 11.1 L (11.4-16.0) gm/dL MCV 109.0 H (80.0-100.0) fL MCHC 30.6 L (31.0-37.0) g/dL Macrocytosis Marked A Chloride 112 H (98-107) mmol/L BUN 39 H (7-17) mg/dL Creatinine 1.15 H (0.52-1.04) mg/dL Calcium 7.9 L (8.4-10.2) mg/dL AST 174 H (14-36) U/L ALT 45 H (4-34) U/L Total Protein 5.0 L (6.3-8.2) g/dL Albumin 2.8 L (3.5-5.0) g/dL Microbiology - Last 24 Hours (Table) 08/31/22 10:24 Urine Culture - Preliminary Urine,Voided Gram Neg Bacilli 08/31/22 12:00 Blood Culture - Preliminary Blood No Growth after 24 hours
--- NOTE | 2022-09-02 18:33 | P.PN ---
Subjective Progress Note Date: 09/02/22 Principal diagnosis: Left knee wound and UTI Patient is a 87-year female with a past medical history significant for atrial fibrillation hypertension asthma osteoarthritis syncope patient was brought into the ER after apparently patient was noticed to be in her garage w edged between her car and some fencing material, patient was noted to have significant hand laceration to the left knee and left foot toes also have a positive UA concerning for a urinary tract infection. on today's evaluation that is 09/02/2022, the patient remains to be afebrile the patient is awake and alert, the patient is breathing comfortably on room air, the patient pain to the left knee and leg is currently controlled no chest pain shortness of breath did have some occasional cough production, no abdominal pain or diarrhea Objective - Vital Signs Vital signs: Vital Signs Temp 97.7 F 09/02/22 12:00 Pulse 84 09/02/22 12:04 Resp 18 09/02/22 12:00 BP 119/77 09/02/22 12:00 Pulse Ox 94 L 09/02/22 12:00 FiO2 Intake & Output 09/01/22 09/02/22 09/02/22 18:59 06:59 18:59 Intake Total 838 712 Output Total 550 250 400 Balance 288 462 -400 Intake: IV 10 Invasive Line 1 10 Oral [id number] Output: Urine 550 250 400 Other: Voiding Method Indwelling Catheter Indwelling Catheter Indwelling Catheter - Exam GENERAL DESCRIPTION: An elderly female lying in bed in no distress RESPIRATORY SYSTEM: Unlabored breathing , decreased breath sounds at bases HEART: S1 S2 regular rate and rhythm , ABDOMEN: Soft , no tenderness EXTREMITIES: Left knee laceration is currently dressed no drainage on the dressing - Labs CBC & Chem 7: 09/02/22 06:56 09/02/22 06:56 Labs: Abnormal Lab Results - Last 24 Hours (Table) 09/02/22 09/02/22 Range/Units 06:56 06:56 WBC 3.3 L (3.8-10.6) k/uL RBC 3.32 L (3.80-5.40) m/uL Hgb 11.1 L (11.4-16.0) gm/dL MCV 109.0 H (80.0-100.0) fL MCHC 30.6 L (31.0-37.0) g/dL Macrocytosis Marked A Chloride 112 H (98-107) mmol/L BUN 39 H (7-17) mg/dL Creatinine 1.15 H (0.52-1.04) mg/dL Calcium 7.9 L (8.4-10.2) mg/dL AST 174 H (14-36) U/L ALT 45 H (4-34) U/L Total Protein 5.0 L (6.3-8.2) g/dL Albumin 2.8 L (3.5-5.0) g/dL Microbiology - Last 24 Hours (Table) 08/31/22 10:24 Urine Culture - Preliminary Urine,Voided Gram Neg Bacilli 08/31/22 12:00 Blood Culture - Preliminary Blood No Growth after 24 hours Assessment and Plan (1) Laceration of left knee Current Visit: Yes Status: Acute Code(s): S81.012A - LACERATION WITHOUT FOREIGN BODY, LEFT KNEE, INIT ENCNTR SNOMED Code(s): 78425226813481079 (2) UTI (urinary tract infection) Current Visit: Yes Status: Acute Code(s): N39.0 - URINARY TRACT INFECTION, SITE NOT SPECIFIED SNOMED Code(s): 44552840 Plan: 1patient presented to hospital with fall patient did have a laceration to the left knee and left foot toes area some swelling no drainage recommend local wound care with dry protective dressing. 2positive UA has some urinary symptoms concerning for UTI possible responsible for the fall and weakness, urine cultures currently growing gram-negative with medicines due to spending 3patient seemed to have shown clinical improvement and well continue with Rocephin 1 g daily while waiting for the culture to finalize Time with Patient: Less than 30
[2022-09-03] MEDS: ALBUTEROL NEBULIZED 2.5 MG/3 ML INHALATION SCH ×5 (00:17→15:52)
[2022-09-03] MEDS: HYDROcodone/APAP 5-325MG 1 EACH TAB PO SCH ×3 (00:38→16:59)
[2022-09-03] MEDS: SODIUM CHLORIDE 0.9% 1,000 ML IV SCH (04:18)
[2022-09-03] MEDS: PANTOPRAZOLE 40 MG TABLET PO SCH ×2 (06:41→16:59)
[2022-09-03] MEDS: MONTELUKAST 10 MG TAB PO SCH (09:55)
[2022-09-03] MEDS: METOPROLOL TARTRATE 50 MG TAB PO SCH ×2 (09:55→19:40)
[2022-09-03] MEDS: ASPIRIN 81 MG PO SCH (09:55)
[2022-09-03] MEDS: VENLAFAXINE HCL ER 75 MG CAP PO SCH (09:55)
[2022-09-03] MEDS: AMIODARONE 100 MG TAB PO SCH (09:55)
--- NOTE | 2022-09-03 10:00 | P.PN ---
Progress Note - Text Progress Note Date: 09/03/22 The patient is seen and examined. She was able to get up with therapy and walked a walker. She says her back is sore but it feels stable. She feels the brace helps when she is up but it moves around when she tries to sit down. She saw some tenderness at her lower back but she seems to be managed appropriately. Her bandages at her lower extremity joint intact. Her neurologic status unchanged Acute compression fracture due to a fall Status post fall with prolonged downtime In terms patient's compression fracture cc to be managing adequately. I would continue the brace for her LSO corset whenever she is up out of bed. She does not need to have the brace intact when she's reclined 60 or less. She does not need it for bathing. Primarily she should have it on when she is doing her therapy and ambulating. From a orthopedic spine standpoint is okay for the patient be discharged when she is cleared with medicine services and multiple services following her. We can plan to follow her up next 2-3 weeks for recheck evaluation and repeat x-rays.
--- NOTE | 2022-09-03 10:31 | CDI ---
Documentation Clarification Form Date: 09/03/2022 9:53:22 AM From: Juju Truong RN, CCDS Email: [email or web address] Admit Date: 08/31/2022 11:54:00 AM Patient Name: Huma Watters Visit Number: [id number] Discharge Date: ATTENTION: The Clinical Documentation Specialists (CDI) and [facility] Coding Staff appreciate your assistance in clarifying documentation. Please respond to the clarification below the line at the bottom and electronically sign. The CDI & [facility] Coding staff will review the response and follow-up if needed. Please note: Queries are made part of the Legal Health Record. If you have any questions, please contact the author of this message via ITS. Dr. Cezar Perez Rhabdomyolysis is documented in the H&P and progress notes. Additional clarification regarding the type of rhabdomyolysis is requested. History/Risk Factors: A-fib, asthma. Fell while taking the groceries from the car to the house - patient unable to move. The neighbors found her after overnight exposure to cold. The patient has extensive bruises and evidence of rhabdomyolysis. Clinical Indicators: CK 4638-0021. Troponins 2.160-1.960-2.350. Lactic acid 6.4-2.3-1.6. Cr 1.78-1.55-1.15 ED: "Patient struggled for several hours attempting to move herself from the floor. She ended up shifting herself and was found underneath her vehicle. Neighbors saw that her garage door was open this morning and entered to find her on the ground under the car. She had significant bruising to her lower extremities and was covered in blood." H&P: "Unresponsive, hypothermia, and rhabdomyolysis." Treatment: warming blankets and bear hugger. 1L bolus of warm saline then 130/hr. 1000mg of Tylenol. Monitor labs. IV antibiotics. Please clarify the type of rhabdomyolysis, if known: [x ] Traumatic rhabdomyolysis due to fall [ ] Traumatic rhabdomyolysis due to prolonged immobility [ ] Other, please specify [ ] Unable to Determine MTDD
--- NOTE | 2022-09-03 10:44 | CDI ---
Documentation Clarification Form Date: 09/03/2022 10:32:30 AM From: Juju Truong RN, CCDS Email: [email or web address] Admit Date: 08/31/2022 11:54:00 AM Patient Name: Huma Watters Visit Number: [id number] Discharge Date: ATTENTION: The Clinical Documentation Specialists (CDI) and [facility] Coding Staff appreciate your assistance in clarifying documentation. Please respond to the clarification below the line at the bottom and electronically sign. The CDI & [facility] Coding staff will review the response and follow-up if needed. Please note: Queries are made part of the Legal Health Record. If you have any questions, please contact the author of this message via ITS. Dr. Cezar Perez Your patient has elevated troponin levels. Please clarify if there is an additional diagnosis and/or clinical significance related to this value. Patient history/risk factors: A-fib, asthma. Fell while taking the groceries from the car to the house - patient unable to move. The neighbors found her after overnight exposure to cold. The patient has extensive bruises and evidence of rhabdomyolysis. Clinical indicators: CK 1790-6688. Troponins 2.160-1.960-2.350. Lactic acid 6.4-2.3-1.6. Cr 1.78-1.55-1.15 H&P: "Troponin 2.160, possible acute [id number]-elevation myocardial infarction." Nephrology consult: "Acute kidney injury secondary to volume depletion, rhabdomyolysis, currently improving." Cardiology consult: "The elevated troponin is likely secondary to the renal failure related to rhabdomyolysis." 09/02 IM: "Elevated troponin most likely secondary to renal failure." Treatment: Warming blankets and bear hugger. 1L bolus of warm saline then 130/hr. 1000mg of Tylenol. Monitor labs. IV antibiotics. Wound care. Is there an additional diagnosis and/or clinical significance related to the above lab result/information? [x ] Type 2 MA secondary to renal failure related to rhabdomyolysis [ ] Other, please specify [ ] Unable to determine MTDD
--- NOTE | 2022-09-03 11:04 | P.PN ---
Subjective Progress Note Date: 09/03/22 CHIEF COMPLAINT: Fall HISTORY OF PRESENT ILLNESS: Patient hospitalized after a ground fall with prolonged downtime with evidence of rhabdomyolysis and L1 fracture. She did get her LSO brace. She did walk with physical therapy to the bedside chair. Patient reports her overall pain is doing better. She does complain of mild left upper quadrant abdominal pain. Denies any nausea or vomiting. Patient has had issues with dysphagia for a while. She is tolerating a full liquid diet. Afebrile. WBC is 3.3 Hgb 11.1 platelets 161 sodium 140 potassium 4.3 creatinine 1.15 total bilirubin 0.5 AST 174 ALT 45 alk phos 53 PHYSICAL EXAM: VITAL SIGNS: Reviewed. GENERAL: Well-developed in no acute distress. HEENT: No sclera icterus. Extraocular movements grossly intact. Moist buccal mucosa. Head bruising noted on chin ABDOMEN: Soft. Nondistended. Mild discomfort with palpation of the left upper quadrant. No bruising noted. Chronic abdominal wall hernia nontender and reducible NEUROLOGIC: Alert and oriented. Cranial nerves II through XII grossly intact. Extremities: Legs are wrapped ASSESSMENT: 1. Ground fall with prolonged downtime. 2. Acute traumatic L1 compression fracture 3. Acute rhabdomyolysis 4. UTI 5. Acute kidney injury 6. Mildly elevated LFTs 7. Dysphagia PLAN: -Continue full liquids -Continue supportive care -Encouraged patient to increase activity level -Continue to work with PT OT -Patient will need ECF placement at discharge Physician Painting Supervisor note has been reviewed by physician. Signing provider agrees with the documented findings, assessment, and plan of care. I have personally seen and examined the patient, reviewed the SPRAY GUN STRIPER /PAs history, exam and MDM and agree with the assessment and plan as written. Based on total visit time, I have performed more than 50% of the visit. As above: Patient doing better today. Tolerating regular food. No abdominal pain at this time. Continue physical therapy. Anticipate need for placement. We'll sign off. Please call if needed. Objective - Vital Signs Vital signs: Vital Signs Temp 98.9 F 09/03/22 09:55 Pulse 89 09/03/22 09:55 Resp 16 09/03/22 09:55 BP 128/78 09/03/22 09:55 Pulse Ox 94 L 09/03/22 09:55 FiO2 Intake & Output 09/02/22 09/03/2223 18:59 06:59 18:59 Intake Total 125 10 Output Total 400 650 Balance -275 -640 Weight 92.533 kg Intake: IV 10 Invasive Line 3 10 Oral 125 Output: Urine 400 650 Other: Voiding Method Indwelling Catheter Indwelling Catheter Indwelling Catheter - Labs CBC & Chem 7: 09/02/22 06:56 09/02/22 06:56 Labs: Abnormal Lab Results - Last 24 Hours (Table) 09/02/22 Range/Units 06:56 Lymphocytes # (Manual) 0.86 L (1.0-4.8) k/uL Microbiology - Last 24 Hours (Table) 08/31/22 10:24 Urine Culture - Final Urine,Voided Escherichia coli 08/31/22 12:00 Blood Culture - Preliminary Blood No Growth after 48 hours
--- NOTE | 2022-09-03 11:24 | P.PN ---
Subjective Patient is seen for follow-up for acute kidney injury, most likely prerenal and associated with rhabdomyolysis. Renal function is improving Creatinine down to 1.15. Overall patient states she is feeling better. Trying to increase oral intake. Objective - Vital Signs Vital signs: Vital Signs Temp 98.9 F 09/03/22 09:55 Pulse 89 09/03/22 09:55 Resp 16 09/03/22 09:55 BP 128/78 09/03/22 09:55 Pulse Ox 94 L 09/03/22 09:55 FiO2 Intake & Output 09/02/22 09/03/22 09/03/22 18:59 06:59 18:59 Intake Total 125 10 Output Total 400 650 Balance -275 -640 Weight 92.533 kg Intake: IV 10 Invasive Line 3 10 Oral 125 Output: Urine 400 650 Other: Voiding Method Indwelling Catheter Indwelling Catheter Indwelling Catheter - Exam Awake, comfortable, no acute distress Examination of the heart S1 and S2 Examination lungs bilateral breath sounds are heard Abdomen is soft obese nontender Examination lower extremities shows bilateral extremities to be wrapped. GROCERY CLERK CHECKING exam grossly intact - Labs CBC & Chem 7: 09/02/22 06:56 09/02/22 06:56 Labs: Abnormal Lab Results - Last 24 Hours (Table) 09/02/22 Range/Units 06:56 Lymphocytes # (Manual) 0.86 L (1.0-4.8) k/uL Microbiology - Last 24 Hours (Table) 08/31/22 10:24 Urine Culture - Final Urine,Voided Escherichia coli 08/31/22 12:00 Blood Culture - Preliminary Blood No Growth after 48 hours Assessment and Plan Assessment: 1. Acute kidney injury secondary to volume depletion, rhabdomyolysis, currently improving. UA shows 1+ protein and moderate blood WBCs more than 182. CT abdomen shows no evidence of hydronephrosis. 2. Rhabdomyolysis with history of fall and patient was on the floor for about 10-14 hours 3. UTI started on antibiotics, urine culture is growing E. coli 4. L1 compression fracture 5. Chronic A. fib 6. Benign hypertension maintained on Norvasc and metoprolol at home Plan: Continue with IV fluids, decrease rate Continue with IV antibiotics Encourage increased oral intake Repeat labs in a.m. Avoid nephrotoxic agents
[2022-09-03] MEDS ORDERED: diphenhydrAMINE 25 MG CAP PO PRN (12:43)
--- NOTE | 2022-09-03 13:19 | P.PN ---
Subjective Progress Note Date: 09/03/22 Patient is a 87-year female with a past medical history significant for atrial fibrillation hypertension asthma osteoarthritis syncope patient was brought into the ER after apparently patient was noticed to be in her garage wedged between her car and some fencing material apparently the patient was on the floor for about 10 to 14 hours and did have some facial swelling with laceration to the knee area patient denies loss of consciousness ER brought the patient to the hospital on arrival to the the patient was hypothermic subsequently low-grade fever of 99.3 F patient did have a white count of 16.3 with a left shift did have elevated BUN and creatinine and lactic acid was mildly elevated urine was positive urine toxin was positive for opiates patient did have a chest x-ray no acute pulmonary process CT of the chest abdominal pelvis which did shows superior endplate compression deformity L1 anterior abdominal anterior pelvic wall herniation with nonobstructed loops of bowel patient did have an x-ray with evidence of any fracture patient was started on Rocephin infectious disease was consulted for further management of antibiotic therapy local wound care to the area patient did have a bruising to the left knee and left foot toes but no drainage has been complaining of pain to be more of a dull aching to sharp 5-6 out of 10 and no radiation 09/01. Patient seen and examined. States back pain has improved. Denies any lightheadedness or dizziness. Vital signs stable 09/02. Patient seen and examined. Renal function improving, and creatinine down to 1.5 09/03. Patient seen and examined. No acute issues overnight. States back pain has improved. States he had an episode of asthma attack this morning requiring her to use her inhaler currently not requiring any oxygen Vital signs stable REVIEW OF SYSTEMS: CONSTITUTIONAL: No fever, no malaise,. CARDIOVASCULAR: No chest pain, no palpitations, no syncope. PULMONARY: No shortness of breath, no cough, GASTROINTESTINAL: No diarrhea, no nausea, no vomiting, no abdominal pain. NEUROLOGICAL: No headaches, no weakness, PHYSICAL EXAMINATION: GENERAL: The patient is alert and oriented x3, not in any acute distress. Well developed, well nourished. HEENT: Pupils are round and equally reacting to light. EOMI. No scleral icterus. No conjunctival pallor. Normocephalic, atraumatic. No pharyngeal erythema. No thyromegaly. CARDIOVASCULAR: S1 and S2 present. No murmurs, rubs, or gallops. PULMONARY: Chest is clear to auscultation, no wheezing or crackles. ABDOMEN: Soft, nontender, nondistended, normoactive bowel sounds. No palpable organomegaly. MUSCULOSKELETAL: No joint swelling or deformity. EXTREMITIES: No cyanosis, clubbing, or pedal edema. NEUROLOGICAL: Gross neurological examination did not reveal any focal deficits. SKIN: No rashes. Assessment and plan Acute rhabdomyolysis Acute renal failure UTI L1 compression fracture Elevated lactic acid levels Elevated troponins. Atrial fibrillation History of asthma Hypertension Plan; Monitor vital signs Monitor CBC Monitor CMP Avoid nephrotoxic agents. Avoid hypotension Continue telemetry monitoring. Follow-up on urine cultures Continue IV Rocephin Continue aspirin, beta blockers and amiodarone Follow-up in ID recs Follow-up on cardiology recommendations, cardiology recommended to continue aspirin, beta marilyn and amiodarone, patient not candidate for anticoagulation because of frequent falls Re: Lumbar compression fractures, orthopedics recommended conservative management and back brace Follow-up in nephrology recommendations Follow-up on PTOT recommendations DVT prophylaxis: Objective - Vital Signs Vital signs: Vital Signs Temp 98.9 F 09/03/22 09:55 Pulse 89 09/03/22 09:55 Resp 16 09/03/22 09:55 BP 128/78 09/03/22 09:55 Pulse Ox 94 L 09/03/22 09:55 FiO2 Intake & Output 09/02/22 09/03/22 09/03/22 18:59 06:59 18:59 Intake Total 125 10 Output Total 400 650 Balance -275 -640 Weight 92.533 kg Intake: IV 10 Invasive Line 3 10 Oral 125 Output: Urine 400 650 Other: Voiding Method Indwelling Catheter Indwelling Catheter Indwelling Catheter - Labs CBC & Chem 7: 09/02/22 06:56 09/02/22 06:56 Labs: Abnormal Lab Results - Last 24 Hours (Table) 09/02/22 Range/Units 06:56 Lymphocytes # (Manual) 0.86 L (1.0-4.8) k/uL Microbiology - Last 24 Hours (Table) 08/31/22 10:24 Urine Culture - Final Urine,Voided Escherichia coli 08/31/22 12:00 Blood Culture - Preliminary Blood No Growth after 48 hours
[2022-09-03] MEDS ORDERED: ALBUTEROL HFA INHALER INHALATION PRN (16:02)
[2022-09-03] MEDS: ALBUTEROL HFA INHALER INHALATION SCH ×3 (16:04→23:27)
[2022-09-03] MEDS: ACETAMINOPHEN TAB 325 MG TAB PO PRN (19:40)
--- NOTE | 2022-09-03 20:43 | P.PN ---
Subjective Progress Note Date: 09/03/22 Principal diagnosis: Left knee wound and UTI Patient is a 87-year female with a past medical history significant for atrial fibrillation hypertension asthma osteoarthritis syncope patient was brought into the ER after apparently patient was noticed to be in her garage w edged between her car and some fencing material, patient was noted to have significant hand laceration to the left knee and left foot toes also have a positive UA concerning for a urinary tract infection. on today's evaluation that is 09/03/2022, the patient continues to be afebrile the patient is breathing comfortably on room air, the patient pain to the left knee and leg has decreased in intensity, dressing was changed by the nursing staff last night and as mentioned wounds look better, the patient is chest pain shortness of breath did have some occasional cough production, no abdominal pain or diarrhea Objective - Vital Signs Vital signs: Vital Signs Temp 99.3 F 09/03/22 12:00 Pulse 70 09/03/22 12:00 Resp 18 09/03/22 12:00 BP 113/71 09/03/22 12:00 Pulse Ox 98 09/03/22 12:00 FiO2 Intake & Output 09/02/22 09/03/22 09/03/22 18:59 06:59 18:59 Intake Total 125 10 Output Total 400 650 300 Balance -275 -640 -300 Weight 92.533 kg Intake: IV 10 Invasive Line 3 10 Oral 125 Output: Urine 400 650 300 Other: Voiding Method Indwelling Catheter Indwelling Catheter Indwelling Catheter - Exam GENERAL DESCRIPTION: An elderly female lying in bed in no distress RESPIRATORY SYSTEM: Unlabored breathing , decreased breath sounds at bases HEART: S1 S2 regular rate and rhythm , ABDOMEN: Soft , no tenderness EXTREMITIES: Left knee laceration is currently dressed no drainage on the dressing - Labs CBC & Chem 7: 09/02/22 06:56 09/02/22 06:56 Labs: Microbiology - Last 24 Hours (Table) 08/31/22 10:24 Urine Culture - Final Urine,Voided Escherichia coli 08/31/22 12:00 Blood Culture - Preliminary Blood No Growth after 48 hours Assessment and Plan (1) Laceration of left knee Current Visit: Yes Status: Acute Code(s): S81.012A - LACERATION WITHOUT FOREIGN BODY, LEFT KNEE, INIT ENCNTR SNOMED Code(s): 13377546088839477 (2) UTI (urinary tract infection) Current Visit: Yes Status: Acute Code(s): N39.0 - URINARY TRACT INFECTION, SITE NOT SPECIFIED SNOMED Code(s): 23792235 Plan: 1patient presented to hospital with fall patient did have a laceration to the left knee and left foot toes area some swelling no drainage recommend local wound care with dry protective dressing. 2positive UA has some urinary symptoms concerning for UTI possible responsible for the fall and weakness, urine cultures currently growing E. coli that is a sensitive pathogen 3patient seemed to have shown clinical improvement and well continue with Rocephin 1 g daily with a plan to finish therapy with oral Ceftin Time with Patient: Less than 30
[2022-09-04] MEDS: HYDROcodone/APAP 5-325MG 1 EACH TAB PO SCH ×2 (00:19→08:20)
[2022-09-04] MEDS: SODIUM CHLORIDE 0.9% 1,000 ML IV SCH (00:21)
[2022-09-04] MEDS: ALBUTEROL HFA INHALER INHALATION SCH ×3 (03:06→11:04)
[2022-09-04 04:31] VITALS: TEMP 98
[2022-09-04] MEDS: PANTOPRAZOLE 40 MG TABLET PO SCH (05:53)
[2022-09-04] MEDS: METOPROLOL TARTRATE 50 MG TAB PO SCH (08:03)
[2022-09-04] MEDS: ASPIRIN 81 MG PO SCH (08:03)
[2022-09-04] MEDS: MONTELUKAST 10 MG TAB PO SCH (08:03)
[2022-09-04] MEDS: AMIODARONE 100 MG TAB PO SCH (08:04)
[2022-09-04] MEDS ORDERED: FUROSEMIDE 10 MG/ML 4 ML VIAL IV STA (09:47)
[2022-09-04] MEDS: VENLAFAXINE HCL ER 75 MG CAP PO SCH (09:58)
--- NOTE | 2022-09-04 10:39 | P.PN ---
Subjective Patient is seen for follow-up for acute kidney injury, most likely prerenal and associated with rhabdomyolysis. Renal function is improving Creatinine down to 1.15. Complaining of shortness of breath today Objective - Vital Signs Vital signs: Vital Signs Temp 98 F 09/04/22 04:15 Pulse 90 09/04/22 07:58 Resp 19 09/04/22 07:58 BP 160/95 09/04/22 07:58 Pulse Ox 94 L 09/04/22 08:08 FiO2 Intake & Output 09/03/22 09/04/22 09/04/22 18:59 06:59 18:59 Intake Total 118 Output Total 500 550 Balance -500 -550 118 Intake: Oral 118 Output: Urine 500 550 Other: Voiding Method Indwelling Catheter Indwelling Catheter Indwelling Catheter - Exam Awake, comfortable, no acute distress Examination of the heart S1 and S2 Examination lungs bilateral breath sounds are heard, decreased at the bases Abdomen is soft obese nontender Examination lower extremities shows bilateral extremities to be wrapped. 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 Acute kidney injury secondary to volume depletion, rhabdomyolysis, currently improving. UA shows 1+ protein and moderate blood WBCs more than 182. CT abdomen shows no evidence of hydronephrosis. 2. Rhabdomyolysis with history of fall and patient was on the floor for about 10-14 hours 3. UTI started on antibiotics, urine culture is growing E. coli 4. L1 compression fracture 5. Chronic A. fib 6. Benign hypertension maintained on Norvasc and metoprolol at home 7. Volume overload Plan: DC IV fluids IV Lasix 1 Repeat labs today and then in a.m.
[2022-09-04 11:34] VITALS: BP 128/80; PULSE 67; RESP 16
[2022-09-04 12:40] LABS: Calcium 8.6 mg/dL (8.4-10.2); Potassium 4.5 mmol/L (3.5-5.1)
--- NOTE | 2022-09-04 12:57 | P.DS ---
Providers Date of admission: 08/31/22 11:54 Expected date of discharge: 09/04/22 Attending physician: Cezar Perez Consults: 08/31/22 11:54 Consult Physician Urgent Consulting Provider: [facility] Consult Reason/Comments: elevated trop Do you want consulting provider notified?: Yes Consult Physician Urgent Consulting Provider: Rashad Tierney Consult Reason/Comments: l1 compression fracture - suspected chronic Do you want consulting provider notified?: Yes 08/31/22 12:00 Consult Physician Urgent Consulting Provider: Cezar Perez Consult Reason/Comments: fall, prolonged downtime, nstemi, mara Do you want consulting provider notified?: Yes 08/31/22 13:46 Consult Physician Urgent Consulting Provider: Ashley Conn Consult Reason/Comments: open wounds bilateral feet, knee Do you want consulting provider notified?: Yes 09/01/22 07:24 Consult Physician Routine Consulting Provider: Polly Garcia Consult Reason/Comments: Rhabdo Do you want consulting provider notified?: Yes Primary care physician: Myranda Jaquez Hospital Course: Discharge diagnoses; Acute rhabdomyolysis Acute renal failure UTI L1 compression fracture Elevated lactic acid levels Elevated troponins. Atrial fibrillation History of asthma Hypertension Hospital course; Patient is a 87-year female with a past medical history significant for atrial fibrillation hypertension asthma osteoarthritis syncope patient was brought into the ER after apparently patient was noticed to be in her garage wedged between her car and some fencing material apparently the patient was on the floor for about 10 to 14 hours and did have some facial swelling with laceration to the knee area patient denies loss of consciousness ER brought the patient to the hospital on arrival to the the patient was hypothermic subsequently low-grade fever of 99.3 F patient did have a white count of 16.3 with a left shift did have elevated BUN and creatinine and lactic acid was mildly elevated urine was positive urine toxin was positive for opiates patient did have a chest x-ray no acute pulmonary process CT of the chest abdominal pelvis which did shows superior endplate compression deformity L1 anterior abdominal anterior pelvic wall herniation with nonobstructed loops of bowel patient did have an x-ray with evidence of any fracture patient was started on Rocephin infectious disease was consulted for further management of antibiotic therapy local wound care to the area patient did have a bruising to the left knee and left foot toes but no drainage has been complaining of pain to be more of a dull aching to sharp 5-6 out of 10 and no radiation. Patient was admitted to hospitalist service. Patient being seen by nephrology, ID, surgery and orthopedics 09/01. Patient seen and examined. States back pain has improved. Denies any lightheadedness or dizziness. Vital signs stable 09/02. Patient seen and examined. Renal function improving, and creatinine down to 1.5 09/03. Patient seen and examined. No acute issues overnight. States back pain has improved. States he had an episode of asthma attack this morning requiring her to use her inhaler currently not requiring any oxygen Vital signs stable 09/04. PT and OT recommended rehab. Patient is medically stable for discharge. Renal functions back to normal PHYSICAL EXAMINATION: GENERAL: The patient is alert and oriented x3, not in any acute distress. Well developed, well nourished. HEENT: Pupils are round and equally reacting to light. EOMI. No scleral icterus. No conjunctival pallor. Normocephalic, atraumatic. No pharyngeal erythema. No thyromegaly. CARDIOVASCULAR: S1 and S2 present. No murmurs, rubs, or gallops. PULMONARY: Chest is clear to auscultation, no wheezing or crackles. ABDOMEN: Soft, nontender, nondistended, normoactive bowel sounds. No palpable organomegaly. MUSCULOSKELETAL: No joint swelling or deformity. EXTREMITIES: No cyanosis, clubbing, or pedal edema. NEUROLOGICAL: Gross neurological examination did not reveal any focal deficits. SKIN: No rashes. Patient Condition at Discharge: Serious Plan - Discharge Summary Discharge Rx Participant: Yes New Discharge Prescriptions: New cefUROXime axetiL [Cefuroxime] 500 mg PO BID #10 tab Continue Montelukast [Singulair] 10 mg PO DAILY amLODIPine [Norvasc] 5 mg PO DAILY Amiodarone [Cordarone] 50 mg PO DAILY Metoprolol Tartrate [Lopressor] 100 mg PO BID Albuterol Sulfate [Albuterol Sulfate Hfa] 2 puff INHALATION RT-Q6H PRN PRN Reason: Shortness Of Breath Aspirin EC [Ecotrin Low Dose] 81 mg PO DAILY HYDROcodone/APAP 5-325MG [[place] 5-325] 1 tab PO Q8H #9 tab Venlafaxine HCl ER [Effexor XR] 75 mg PO DAILY Discharge Medication List Amiodarone [Cordarone] 50 mg PO DAILY 02/18/14 [History] Montelukast [Singulair] 10 mg PO DAILY 02/18/14 [History] amLODIPine [Norvasc] 5 mg PO DAILY 02/18/14 [History] Albuterol Sulfate [Albuterol Sulfate Hfa] 2 puff INHALATION RT-Q6H PRN 03/11/21 [History] Metoprolol Tartrate [Lopressor] 100 mg PO BID 03/11/21 [History] Aspirin EC [Ecotrin Low Dose] 81 mg PO DAILY 08/31/22 [History] Venlafaxine HCl ER [Effexor XR] 75 mg PO DAILY 08/31/22 [History] HYDROcodone/APAP 5-325MG [[place] 5-325] 1 tab PO Q8H #9 tab 09/04/22 [Rx] cefUROXime axetiL [Cefuroxime] 500 mg PO BID #10 tab 09/04/22 [Rx] Follow up Appointment(s)/Referral(s): Cristobal Harrison MD [STAFF PHYSICIAN] - 2 Weeks Myranda Jaquez MD [Primary Care Provider] - 1-2 days Kev Camacho PAC [PHYSICIAN HEAVY TRUCK TECHNICIAN] - 3 Weeks (Patient may follow-up with Kev Camacho PA-C or Dr. Saad Tierney at [facility] in 3 weeks following discharge. ) Activity/Diet/Wound Care/Special Instructions: 1. Patient may wear LSO brace for comfort and support while sitting upright at greater than 45, while working with therapy, and while ambulating; patient does not have to wear the brace while lying in bed or bathing 2. Patient should avoid excessive bending, twisting, and lifting; no lifting greater than 10 pounds Discharge Disposition: TRANSFER TO SNF/ECF
--- NOTE | 2022-09-04 13:57 | P.PN ---
Subjective Progress Note Date: 09/04/22 Principal diagnosis: Left knee wound and UTI Patient is a 87-year old female with a past medical history significant for atrial fibrillation hypertension asthma osteoarthritis syncope patient was brought into the ER after apparently patient was noticed to be in her garage wedged between her car and some fencing material, patient was noted to have significant hand laceration to the left knee and left foot toes also have a positive UA concerning for a urinary tract infection. on today's evaluation that is 09/04/2022, the patient remains to be afebrile the patient is breathing comfortably on 2 L nasal cannula oxygen, the patient pain to the left knee and leg has decreased in intensity, patient had been complaining of some cough but not able to cough up any sputum some nausea but no vomiting no abdominal pain or diarrhea Objective - Vital Signs Vital signs: Vital Signs Temp 98 F 09/04/22 04:15 Pulse 67 09/04/22 11:34 Resp 16 09/04/22 11:34 BP 128/80 09/04/22 11:34 Pulse Ox 96 09/04/22 11:34 FiO2 Intake & Output 09/03/22 09/04/22 09/04/22 18:59 06:59 18:59 Intake Total 118 Output Total 701 309 9913 Balance -500 -550 -1282 Intake: Oral 118 Output: Urine 224 412 2255 Other: Voiding Method Indwelling Catheter Indwelling Catheter Indwelling Catheter - Exam GENERAL DESCRIPTION: An elderly female lying in bed in no distress RESPIRATORY SYSTEM: Unlabored breathing , decreased breath sounds at bases HEART: S1 S2 regular rate and rhythm , ABDOMEN: Soft , no tenderness EXTREMITIES: Left knee laceration is currently dressed no drainage on the dressing - Labs CBC & Chem 7: 09/02/22 06:56 09/04/22 11:10 Labs: Microbiology - Last 24 Hours (Table) 08/31/22 12:00 Blood Culture - Preliminary Blood No Growth after 72 hours Assessment and Plan (1) Laceration of left knee Current Visit: Yes Status: Acute Code(s): S81.012A - LACERATION WITHOUT FOREIGN BODY, LEFT KNEE, INIT ENCNTR SNOMED Code(s): 87789553954558835 (2) UTI (urinary tract infection) Current Visit: Yes Status: Acute Code(s): N39.0 - URINARY TRACT INFECTION, SITE NOT SPECIFIED SNOMED Code(s): 63092359 Plan: 1patient presented to hospital with fall patient did have a laceration to the left knee and left foot toes area some swelling no drainage recommend local wound care with dry protective dressing. 2positive UA has some urinary symptoms concerning for UTI possible responsible for the fall and weakness, urine cultures currently growing E. coli that is a sensitive pathogen 3patient show some clinical improvement she will finish therapy with oral Ceftin as for his UTI and close outpatient follow-up multiple questions concerned were answered Time with Patient: Less than 30
== END 2022-09-04 14:23 | DRG 564 ==
LOC: EC 09:09 → 3SCARD 11:54
PROVIDERS: ADMIT Hospitalist; ATTEND Hospitalist
DX: T79.6XXA Traumatic ischemia of muscle, initial encounter (principal); I21.A1 Myocardial infarction type 2; E87.20 Acidosis, unspecified; S32.019A Unspecified fracture of first lumbar vertebra, initial encounter for closed fracture; I48.21 Permanent atrial fibrillation; N17.9 Acute kidney failure, unspecified; N39.0 Urinary tract infection, site not specified; Z91.81 History of falling; B96.20 Unspecified Escherichia coli [E. coli] as the cause of diseases classified elsewhere; E78.5 Hyperlipidemia, unspecified; E86.9 Volume depletion, unspecified; E87.70 Fluid overload, unspecified; F41.9 Anxiety disorder, unspecified; G89.29 Other chronic pain; I10 Essential (primary) hypertension; K43.9 Ventral hernia without obstruction or gangrene; L89.90 Pressure ulcer of unspecified site, unspecified stage; M51.36 Other intervertebral disc degeneration, lumbar region; J45.909 Unspecified asthma, uncomplicated; R13.10 Dysphagia, unspecified; R77.8 Other specified abnormalities of plasma proteins; S81.012A Laceration without foreign body, left knee, initial encounter; R29.6 Repeated falls; S06.0X0A Concussion without loss of consciousness, initial encounter; S30.1XXA Contusion of abdominal wall, initial encounter; S61.419A Laceration without foreign body of unspecified hand, initial encounter; W18.30XA Fall on same level, unspecified, initial encounter; Y92.015 Private garage of single-family (private) house as the place of occurrence of the external cause; Z79.82 Long term (current) use of aspirin; Z79.899 Other long term (current) drug therapy; Z86.73 Personal history of transient ischemic attack (TIA), and cerebral infarction without residual deficits; Z96.643 Presence of artificial hip joint, bilateral; Z90.710 Acquired absence of both cervix and uterus; Z86.19 Personal history of other infectious and parasitic diseases; Z90.49 Acquired absence of other specified parts of digestive tract; Z87.891 Personal history of nicotine dependence
CPT/HCPCS: 36415; 70450; 71045; 71260; 72125; 72170; 74177; 80048; 80053; 80306; 80320; 81001; 82550; 83605; 84484; 85025; 85610; 85730; 86850; 86900; 86901; 87040; 87077; 87086; 87186; 93005; 93306; 94640; 94760; 96361; 96374; 96375; 99291

== ENCOUNTER 2023-07-30 11:04 | Emergency (ER) | payer MEDICARE ==
--- NOTE | 2023-07-30 11:33 | ED ---
General Adult HPI - General Chief complaint: Extremity Injury, Lower Stated complaint: Laceration on L foot Time Seen by Provider: 07/30/23 11:12 Source: patient, family, EMS Mode of arrival: EMS Limitations: no limitations - History of Present Illness Initial comments: Dictation was produced using Namb[employer] dictation software. please excuse any grammatical, word or spelling errors. Chief Complaint: 87-year-old female with left foot laceration History of Present Illness: Patient is 87-year-old female approximately 30 minutes prior to arrival a glass fell from the top shelf landed on her left foot causing a laceration. There was significant bleeding. Patient does not take any anticoagulation medications. Patient denies stepping on any glass. She states that the glass broke but she did not cut her feet on any glass. The ROS documented in this emergency department record has been reviewed and confirmed by me. Those systems with pertinent positive or negative responses have been documented in the HPI. All other systems are other negative and/or noncontributory. - Related Data Home Medications Medication Instructions Recorded Confirmed Amiodarone [Cordarone] 50 mg PO DAILY 02/18/14 08/31/22 Montelukast [Singulair] 10 mg PO DAILY 02/18/14 08/31/22 amLODIPine [Norvasc] 5 mg PO DAILY 02/18/14 08/31/22 Albuterol Sulfate [Albuterol 2 puff INHALATION RT-Q6H PRN 03/11/21 08/31/22 Sulfate Hfa] Metoprolol Tartrate [Lopressor] 100 mg PO BID 03/11/21 08/31/22 Aspirin EC [Ecotrin Low Dose] 81 mg PO DAILY 08/31/22 08/31/22 Venlafaxine HCl ER [Effexor XR] 75 mg PO DAILY 08/31/22 08/31/22 Previous Rx's Medication Instructions Recorded HYDROcodone/APAP 5-325MG [[place] 1 tab PO Q8H #9 tab 09/04/22 5-325] cefUROXime axetiL [Cefuroxime] 500 mg PO BID #10 tab 09/04/22 Cephalexin [Keflex] 500 mg PO Q6HR 5 Days #20 cap 07/30/23 Allergies Allergy/AdvReac Type Severity Reaction Status Date / Time No Known Allergies Allergy Verified 07/30/23 11:33 Review of Systems ROS Statement: Those systems with pertinent positive or pertinent negative responses have been documented in the HPI. ROS Other: All systems not noted in ROS Statement are negative. 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 Past Psychological History: No Psychological Hx Reported Smoking Status: Former smoker Past Alcohol Use History: Occasional Past Drug Use History: None Reported General Exam - General Exam Comments Initial Comments: General: Well-appearing, nontoxic, no acute distress. Head: Normocephalic, atraumatic Eyes: PERRLA, EOMI ENT: Airway patent Chest: Nonlabored breathing Skin: No visual rash, normal skin tone Neuro: Alert and oriented 3 Musculoskeletal: No gross abnormalities Left foot: 2 cm laceration over the dorsum of the left foot Limitations: no limitations Course Vital Signs 07/30/23 11:15 Temperature 97.1 F L Pulse Rate 68 Respiratory 16 Rate Blood Pressure 132/73 O2 Sat by Pulse 97 Oximetry Procedures - Laceration Laceration #1 Consent Obtained: verbal consent Indication: laceration Site: foot Description: linear Anesthetic Used: lidocaine 1%, with epi Anesthesia Technique: local infiltration Type of Sutures: nylon Size of Sutures: 4-0 Technique: running Patient Tolerated Procedure: well Medical Decision Making - Medical Decision Making Was pt. sent in by a medical professional or institution (Dr. PA, COMMERCIAL SHRIMPING CAPTAIN, urgent care, hospital, or senior care...) When possible be specific @ -No Did you speak to anyone other than the patient for history (EMS, parent, family, police, friend...)? What history was obtained from this source @ -No Did you review nursing and triage notes (agree or disagree)? Why? @ -I reviewed and agree with nursing and triage notes Were old charts reviewed (outside hosp., previous admission, EMS record, old EKG, old radiological studies, urgent care reports/EKG's, senior care records)? Report findings @ -No old charts were reviewed Differential Diagnosis (chest pain, altered mental status, abdominal pain women, abdominal pain men, vaginal bleeding, musculoskeletal, weakness, fever, dyspnea, syncope, headache, dizziness, GI bleed, back pain, seizure, CVA, palpatations, mental health)? @ -Not applicable EKG interpreted by me (3pts min.). @ -None done X-rays interpreted by me (1pt min.). @ -X-ray of the foot showed no occult fractures. There are no foreign bodies in either feet CT interpreted by me (1pt min.). @ -None done U/S interpreted by me (1pt. min.). @ -None done What testing was considered but not performed or refused? (CT, X-rays, U/S, labs)? Why? @ -None What meds were considered but not given or refused? Why? @ -None Did you discuss the management of the patient with other professionals (professionals i.e. , PA, COMMERCIAL SHRIMPING CAPTAIN, lab, RT, psych nurse, manager social work, marble installer supervisor, teacher, radiation safety officer, case sealer)? Give summary @ -No Was smoking cessation discussed for >3mins.? @ -No Was critical care preformed (if so, how long)? @ -No Were there social determinants of health that impacted care today? How? (Homelessness, low income, unemployed, alcoholism, drug addiction, transportation, low edu. Level, literacy, decrease access to med. care, snf, rehab)? @ -No Was there de-escalation of care discussed even if they declined (Discuss DNR or withdrawal of care, Hospice)? DNR status @ -No What co-morbidities impacted this encounter? (DM, HTN, Smoking, COPD, CAD, Cancer, CVA, ARF, Chemo, Hep., AIDS, mental health diagnosis, sleep apnea, morbid obesity)? @ -None Was patient admitted / discharged? Hospital course, mention meds given and route, prescriptions, significant lab abnormalities, going to OR and other pertinent info. @ -87-year-old female with laceration to the foot. Vital signs stable. Blood was cleaned up. There did not appear to be any other lacerations besides over the first metatarsal joint on the left foot. X-rays show no foreign bodies. Laceration repaired at the bedside. Patient's tetanus is up-to-date Undiagnosed new problem with uncertain prognosis? @ -No Drug Therapy requiring intensive monitoring for toxicity (Heparin, Nitro, Insulin, Cardizem)? @ -No Were any procedures done? @ -See above Diagnosis/symptom? Acute, or Chronic, or Acute on Chronic? Uncomplicated (without systemic symptoms) or Complicated (systemic symptoms)? @ -Foot laceration Side effects of treatment? @ -No Exacerbation, Progression, or Severe Exacerbation? @ -No Poses a threat to life or bodily function? How? (Chest pain, [place], [place], pneumonia, PE, COPD, DKA, ARF, appy, cholecystitis, CVA, Diverticulitis, Homicidal, Suicidal, threat to staff... and all critical care pts) @ -No Disposition Clinical Impression: Foot laceration Disposition: HOME SELF-CARE Condition: Good Instructions (If sedation given, give patient instructions): Laceration (ED) Additional Instructions: suture removal in 7-10 days Prescriptions: Cephalexin [Keflex] 500 mg PO Q6HR 5 Days #20 cap Is patient prescribed a controlled substance at d/c from ED?: No Referrals: Mauricio Newman MD [Primary Care Provider] - 1-2 days Time of Disposition: 13:01
--- NOTE | 2023-07-30 12:11 | XR ---
EXAMINATION TYPE: XR foot complete 3 views bilateral DATE OF EXAM: 07/30/2023 Comparison: None Clinical History: 87-year-old female lacerations from stepping on glass Findings: The patient's left forefoot is wrapped crowding the toes and limiting assessment. There is diffuse os teopenia. Mild degenerative change of the first MTP joint on both sides. Mild bunion formation as wel l. No definite retained radiopaque foreign body is identified. No acute fracture, subluxation, disloc ation. Tiny plantar heel spurs. Hammertoes. Impression: The patient's right forefoot is wrapped limiting assessment. No definite retained radiopaque foreign body is identified. Osteopenia. No acute osseous abnormality seen.
[2023-07-30] MEDS: LIDOCAINE 1%-EPI 1:100,000 20 ML VIAL SQ STA (12:32)
[2023-07-30 13:39] VITALS: BP 149/76; PULSE 79; RESP 18; TEMP 97.7
== END 2023-07-30 13:45 | disposition home or self-care (01) ==
LOC: EC 11:04 → SUPCPDRO 11:04 → EC 13:45
DX: S91.311A Laceration without foreign body, right foot, initial encounter (principal); J45.909 Unspecified asthma, uncomplicated; I10 Essential (primary) hypertension; I48.91 Unspecified atrial fibrillation; Z87.891 Personal history of nicotine dependence; Z79.82 Long term (current) use of aspirin; Z79.899 Other long term (current) drug therapy; W25.XXXA Contact with sharp glass, initial encounter
CPT/HCPCS: 12001; 99284